=== PATIENT | female | born 1945 | race Caucasian/White ===

== ENCOUNTER → 2016-11-13 | Outpatient (CLI) | payer OTHER ==
[~2016-11-13] MED LIST: ACET-1256 PO; AMIT10TA6 PO; ASCO500T16 PO; ASPI81TA28 PO; CALC-5 PO; CTP/1 PO; HYDR25TA4 PO; MECL1TAB42 PO; MULT-513 PO; NUTR-218 PO; OMEP20CA59 PO; ONDA4TAB7 SL; OXYC1TAB3 PO; POTA-327 PO; POTA1080 PO; PRAV20TA PO
--- NOTE | 2016-11-13 08:26 | DIAGNOSTIC IMAGING REPORT ---
RENAL ULTRASOUND CLINICAL HISTORY: Nephrolithiasis. COMPARISON STUDY: CT of the abdomen and pelvis April 07, 2014 and IVP December 02, 2014. TECHNIQUE: Sonography of the kidneys and the urinary bladder was performed. FINDINGS: There is no hydronephrosis. The right kidney measures 11.2 x 5.7 x 6 cm and the left measures 10.5 x 6.3 x 7.3 cm. There is mild renal cortical thinning. Incidental note is made of a septated 3.8 cm right hepatic lobe cyst which is unchanged since CT of April 07, 2014. Both ureteral jets were identified. No calculi are identified by sonography. IMPRESSION: 1. No hydronephrosis. 2. No calculi identified by sonography. Electronically signed by: Jorge Calderon M.D. 11/13/2016 8:24 AM Dictated Date/Time: 11/13/2016 8:22 AM
== END | disposition home or self-care (01) ==
LOC: C.ULTR 07:26
PROVIDERS: ATTEND Urology
DX: N20.0 Calculus of kidney (principal)

== ENCOUNTER 2017-05-02 02:01 | Emergency (ER) | payer OTHER ==
[2017-05-02] MEDS ORDERED: OPTIRAY 320 IV PRN (03:45)
[2017-05-02 05:42] VITALS: PULSE 60; O2SAT 100
[2017-05-02 05:44] VITALS: BP 183/112
[2017-05-02] MEDS ORDERED: CLONIDINE HCL 0.1 MG TAB PO ONE (05:45)
[2017-05-02 05:56] VITALS: TEMP 36.5
--- NOTE | 2017-05-02 06:18 | EMERGENCY ROOM VISIT NOTE ---
ED Visit Note First contact with patient: 03:38 This patient was seen and evaluated at the request of my attending physician, Dr. Lindquist, for slit lamp examination of the right eye. Please see Dr. Lindquist's dictation for full history of present illness and emergency Department course. GENERAL: This is a pleasant white female, in no acute distress, but who is uncomfortable from the eye problem. RIGHT EYE. There is no significant discharge of tears from the right eye which is not injected. There is no foreign body visible under the eyelid even after lid eversion. No foreign body was seen embedded in the cornea under slit lamp exam. The cornea was clear and no hyphema was seen. Fluorescein uptake was not observed with ultraviolet light. I will refer you back to Dr. Lindquist's dictation for full ER course. Problem List Medical Problems: (1) Benign hypertension Status: Chronic (2) Cholecystectomy Status: Resolved (3) Hyperlipidemia Status: Chronic (4) Hypertension Status: Chronic (5) Hysterectomy Status: Resolved (6) Irritable Bowel Syndrome Status: Chronic (7) Kidney stones Status: Resolved Current/Historical Medications Scheduled Acetaminophen (Tylenol), 1,000 MG PO Q6HR PRN Amitriptyline Hcl (Elavil), 10 MG PO HS Aspirin (Aspirin Ec), 81 MG PO DAILY Calcium-Magnesium W/ Vitamin D (Calcium 500), 500 MG PO DAILY Clonidine Hcl (Catapres), 0.2 MG PO DAILY Hydrochlorothiazide (Hctz), 25 MG PO DAILY Meclizine Hcl (Meclizine Hcl), 25 MG PO TID PRN Multivitamins/Minerals (Mvi With Minerals), 1 TAB PO DAILY Nutritional Supplements (Juice Plus Fibre), 1 DOSE PO BID Omeprazole (Prilosec), 20 MG PO DAILY Potassium Citrate (Urocit-K), 15 MEQ PO DAILY Potassium Ext Rel (Klor-Con), 10 MEQ PO DAILY Pravastatin (Pravachol ), 20 MG PO HS Scheduled PRN Ascorbic Acid (Ascorbic Acid), 500 MG PO BID PRN for unkn Ondansetron (Zofran Odt), 1-2 TABS SL Q6H PRN for Nausea Oxycodone Ir (Roxicodone Ir), 1-2 TAB PO Q4H PRN for Severe Pain Allergies Coded Allergies: Diclofenac (Verified Allergy, Unknown, elevated liver enzymes, 04/07/14) NSAIDs (Verified Allergy, Unknown, LIVER INJURY, 04/07/14) Vital Signs Date Time Temp Pulse Resp B/P (MAP) Pulse Ox O2 Delivery O2 Flow Rate FiO2 05/02/17 05:56 36.5 05/02/17 05:44 183/112 05/02/17 05:42 60 18 188/106 100 Room Air 05/02/17 04:18 82 18 138/72 96 Medications Administered Medications (Trade) Dose Ordered Sig/Kapil Route Start Time Stop Time Status Last Admin Dose Admin Clonidine HCl (Catapres Tab) 0.1 mg NOW ONCE PO 05/02/17 05:45 05/02/17 05:47 DC 05/02/17 05:52 0.1 MG Departure Information Impression Primary Impression: Flashing lights seen Additional Impression: Visual floaters Dispostion Home / Self-Care Condition GOOD Referrals Dona Kelly M.D. Forms WORK / SCHOOL INSTRUCTIONS, HOME CARE DOCUMENTATION FORM, IMPORTANT VISIT INFORMATION Patient Instructions My [facility] Additional Instructions Diagnosis: Visual floaters, lights Follow up with Dr Forman today, call first thing this morning for an appt today. Dr Galicia was notified. Return to the ED for worsening of symptoms or any medical concerns. Problem Qualifiers
--- NOTE | 2017-05-02 06:27 | EMERGENCY ROOM VISIT NOTE ---
History Report prepared by [place]: Irving Rice Under the Supervision of: Dr. Taylor Lindquist M.D. First contact with patient: 03:38 Chief Complaint: EYE ASSESSMENT Stated Complaint: BLACK SPOT IN EYE AND FLASHING AT RT SIDE OF RT EY History of Present Illness The patient is a 71 year old female who presents to the Emergency Room with complaints of intermittent flashes of white light in the right eye beginning 3 hours ago. 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 She reports she came home to make supper, and she thought there was a bug around her. The patient notes she tried looking around, and the spot was still there. She states her grandchild could not see anything with a flashlight when he looked in her eye except for a red line. The patient reports she has a history of a broken blood vessel in her eye. She notes she tried artificial tears, but they did not help. The patient states she was lying down talking to her friend, and after her conversation she stood up. She reports she started seeing intermittent flashes of white light in her right eye. The patient notes it looks like a sparkler streak. She states she looked around, and the flashes were still there. The patient reports she thought she may have detached her retina. She notes she called the tele-nurse and was told to come to the ED. The patient states she wanted to wait and call her wool shearer later today. She reports she woke up the other day with a crusty right eye, but she attributed it to her sorethroat. The patient denies bumping her head, head pain, starting new medication, weakness, and speech loss. Source of History: patient Onset: 3 hours ago Position: eye (right) Quality: other (white light) Timing: intermittent Note: Associated symptoms: black spec in right eye Denies: bumping her head, head pain, starting new medication, weakness, and speech loss Review of Systems See HPI for pertinent positives & negatives. A total of 10 systems reviewed and were otherwise negative. Past Medical & Surgical Medical Problems: (1) Benign hypertension (2) Cholecystectomy (3) Hyperlipidemia (4) Hypertension (5) Hysterectomy (6) Irritable Bowel Syndrome (7) Kidney stones Family History Cancer Diabetes mellitus Gallbladder disease Hypertension Kidney stones Other cardiovascular diseases Other kidney diseases Social History Smoking Status: Never Smoker Alcohol Use: none Marital Status: Housing Status: lives with significant other Occupation Status: retired Current/Historical Medications Scheduled Acetaminophen (Tylenol), 1,000 MG PO Q6HR PRN Amitriptyline Hcl (Elavil), 10 MG PO HS Aspirin (Aspirin Ec), 81 MG PO DAILY Calcium-Magnesium W/ Vitamin D (Calcium 500), 500 MG PO DAILY Clonidine Hcl (Catapres), 0.2 MG PO DAILY Hydrochlorothiazide (Hctz), 25 MG PO DAILY Meclizine Hcl (Meclizine Hcl), 25 MG PO TID PRN Multivitamins/Minerals (Mvi With Minerals), 1 TAB PO DAILY Nutritional Supplements (Juice Plus Fibre), 1 DOSE PO BID Omeprazole (Prilosec), 20 MG PO DAILY Potassium Citrate (Urocit-K), 15 MEQ PO DAILY Potassium Ext Rel (Klor-Con), 10 MEQ PO DAILY Pravastatin (Pravachol ), 20 MG PO HS Scheduled PRN Ascorbic Acid (Ascorbic Acid), 500 MG PO BID PRN for unkn Ondansetron (Zofran Odt), 1-2 TABS SL Q6H PRN for Nausea Oxycodone Ir (Roxicodone Ir), 1-2 TAB PO Q4H PRN for Severe Pain Allergies Coded Allergies: Diclofenac (Verified Allergy, Unknown, elevated liver enzymes, 04/07/14) NSAIDs (Verified Allergy, Unknown, LIVER INJURY, 04/07/14) Physical Exam Vital Signs Date Time Temp Pulse Resp B/P (MAP) Pulse Ox O2 Delivery O2 Flow Rate FiO2 05/02/17 05:56 36.5 05/02/17 05:44 183/112 05/02/17 05:42 60 18 188/106 100 Room Air 05/02/17 04:18 82 18 138/72 96 Right Eye Acuity: 20/50 Left Eye Acuity: 20/30 Physical Exam Vital signs reviewed. General: Well-appearing 71 year old female, in no significant distress. HEENT: No scleral icterus, PERRLA, neck supple. Atraumatic. Right eye pressures (puff tonometry) are normal at 12, 11, and 12. No foreign bodies identified on fluorescein exam. Normal limited funduscopic exam. Cardiovascular: Regular rate and rhythm, no extra sounds. Pulmonary: Clear to auscultation bilaterally, normal work of breathing. Abdomen: Soft, nontender, nondistended, positive bowel sounds. Musculoskeletal: Atraumatic, no peripheral edema. Neurologic: Patient awake alert and oriented x 3, full strength in all 4 extremities. Cranial nerves 2 through 12 grossly intact. Skin: Warm, dry, no rash Medical Decision & Procedures ER Provider Diagnostic Interpretation: CT results as stated below per my review and radiologist interpretation: CT HEAD: No evidence of acute intracranial abnormality. Specifically, no evidence of acute territorial infarct, acute intracranial hemorrhage, mass effect of midline shift. Mild senescent change of the brain, appropriate for age. Visualized portions of the orbits appear unremarkable on CT. CTA HEAD: Patent intracranial arteries. No evidence of hemodynamically significant stenosis, occlusion, aneurysm, or vascular malformation. Intracranial venous structures appear patent. Radiologist: Kaley Hughes MD Study ready at 0347 and initial results transmitted at 0503. Medications Administered Medications (Trade) Dose Ordered Sig/Kapil Route Start Time Stop Time Status Last Admin Dose Admin Clonidine HCl (Catapres Tab) 0.1 mg NOW ONCE PO 05/02/17 05:45 05/02/17 05:47 DC 05/02/17 05:52 0.1 MG ECG Indication: other (hypertension) Rate (beats per minute): 72 Rhythm: normal sinus Findings: no acute ischemic change, no ectopy ED Course 0219: Past medical records reviewed. The patient was evaluated in room B02. A complete history and physical examination was performed. 0514: I discussed the patient's case with Dr. Galicia, Ophthalmology. The patient will be seen in the office later today. 0516: I reevaluated the patient and discussed my consult with Dr. Galicia. I updated the patient of her current exam findings. 0541: The patient was found to be hypertensive. She states she took Clonidine last evening and believes it is wearing off. She will be given 0.1mg of Clonidine. She verbalized agreement of the treatment plan and discharge instructions. The patient will be discharged when she receives her medication. 0545: Ordered Clonidine HCl 0.1mg PO Medical Decision The patient is a 71 year old female who presents to the ED with complaints of flashes in her right eye. Differentials include retinal detachment, vitreous hemorrhage, CVA, glaucoma, hypertension urgency, central retinal vein occlusion , central retinal artery occlusion. This patient was evaluated and appeared to be in no significant distress. Physical examination is fairly unrevealing. Funduscopic exam is limited but appears to be normal. Slit-lamp exam was performed by Taj López PA-C. There is no evidence of corneal abrasion. Pelvic tonometer reveals normal intraocular pressures. Visual acuity is intact. Patient developed hypertension in her stay here in the ER. She advised me that she takes 0.2 mg of clonidine before going to bed. I suspect this has worn off and she is having a rebound effect. The patient was given 0.1 mg of oral clonidine in the emergency department. EKG is a sinus rhythm without evidence of ischemia or ectopy. I did speak with Dr. Galicia of ophthalmology who states the patient can be seen in their office later today. I did advise the patient to see her primary care physician this week for what pressure recheck and medication management. She will check her blood pressures in the mid morning and use clonidine 0.1 mg if her systolic pressures greater than 180. She will seek further advice from her PCP. Patient was discharged to the care of her friend and will return to the ER for worsening of symptoms or any medical concerns. Medication Reconcilliation Current Medication List: was personally reviewed by me Blood Pressure Screening Patient's blood pressure: Elevated blood pressure Blood pressure disposition: Referred to PCP Consults Time Called: 0507 Consulting Physician: Dr. Galicia, Ophthalmology Returned Call: 0514 I discussed the patient's case with Dr. Galicia, Ophthalmology. The patient will be seen in the office later today. Impression Primary Impression: Flashing lights seen Additional Impressions: Visual floaters Hypertension Scribe Attestation The scribe's documentation has been prepared under my direction and personally reviewed by me in its entirety. I confirm that the note above accurately reflects all work, treatment, procedures, and medical decision making performed by me. Departure Information Dispostion Home / Self-Care Referrals Dona Kelly M.D. Forms WORK / SCHOOL INSTRUCTIONS, HOME CARE DOCUMENTATION FORM, IMPORTANT VISIT INFORMATION Patient Instructions My [facility] Additional Instructions Diagnosis: Visual floaters, lights Follow up with Dr Forman today, call first thing this morning for an appt today. Dr Galicia was notified. Return to the ED for worsening of symptoms or any medical concerns. Problem Qualifiers
--- NOTE | 2017-05-02 07:31 | DIAGNOSTIC IMAGING REPORT ---
CT ANGIOGRAPHY HEAD COMBO CT DOSE: CLINICAL HISTORY: Right eye visual loss. Possible stroke. TECHNIQUE: Unenhanced images were obtained to the brain. CT angiography was then performed in a dynamic helical fashion during intravenous administration of 92 cc of Optiray 320. MIP imaging was performed. A dose lowering technique was utilized adhering to the principles of ALARA. COMPARISON STUDY: Noncontrast head CT dated 04/26/2012 FINDINGS: No intra or extra-axial mass lesions are visualized. There is no CT evidence of acute cortical infarction. There is no midline shift. There is no acute hemorrhage. There is no hydrocephalus. Postcontrast images reveal no pathologically enhancing masses. There are no major intracranial branch occlusions. There are no lesion suspicious for aneurysm. There is no evidence of dural venous sinus thrombosis. IMPRESSION: Unremarkable CT angiography of the brain. Electronically signed by: Andrea Turk M.D. 05/02/2017 6:49 AM Dictated Date/Time: 05/02/2017 6:44 AM
[2017-05-02 15:25] LABS: ISTAT CREATININE 0.9 mg/dl (0.6-1.3); ISTAT HEMOGLOBIN 12.6 g/dl (12.0-16.0); ISTAT IONIZED CALCIUM 1.32 mmol/l (1.12-1.32)
== END 2017-05-02 05:56 | disposition home or self-care (01) ==
LOC: C.EDB 02:01
DX: H53.8 Other visual disturbances (principal); I10 Essential (primary) hypertension; Z79.899 Other long term (current) drug therapy; K58.9 Irritable bowel syndrome, unspecified

== ENCOUNTER → 2017-06-25 | Outpatient (CLI) | payer OTHER ==
--- NOTE | 2017-06-28 08:13 | MAMMOGRAPHY REPORT ---
BILATERAL DIGITAL SCREENING MAMMOGRAM TOMOSYNTHESIS WITH CAD: 06/25/2017 CLINICAL HISTORY: Routine screening. Patient has no complaints. TECHNIQUE: Breast tomosynthesis in addition to standard 2D mammography was performed. Current study was also evaluated with a Computer Aided Detection (CAD) system. COMPARISON: Comparison is made to exams dated: 05/29/2016 mammogram, 05/23/2015 mammogram, 4 mammogram, 04/03/2013 mammogram, 03/26/2012 mammogram, and 03/09/2011 mammogram - [facility]. BREAST COMPOSITION: There are scattered areas of fibroglandular density in both breasts. FINDINGS: There are minimal vascular calcifications in both breasts. Stable asymmetry in the centra l left breast. No new suspicious mass, architectural distortion or cluster of microcalcifications is seen. IMPRESSION: ACR BI-RADS CATEGORY 2: BENIGN There is no mammographic evidence of malignancy. A 1 year screening mammogram is recommended. The pa tient will receive written notification of the results. Approximately 10% of breast cancers are not detected with mammography. A negative mammographic report should not delay biopsy if a clinically suggestive mass is present. Nayana Vanessa M.D. ay/:06/25/2017 15:18:25 Folder Operator: Divya FOSTERR, M, [facility] letter sent: Normal 1/2 BI-RADS Code: ACR BI-RADS Category 2: Benign
== END | disposition home or self-care (01) ==
LOC: C.MAMM 14:45
PROVIDERS: ATTEND Student in an Organized Health Care Education/Training Program
DX: Z12.31 Encounter for screening mammogram for malignant neoplasm of breast (principal)

== ENCOUNTER → 2017-09-09 | Outpatient (CLI) | payer OTHER ==
[~2017-09-09] MED LIST changes: +OPTIRAY 320 IV PRN
--- NOTE | 2017-09-09 15:50 | DIAGNOSTIC IMAGING REPORT ---
(CHEST FOR PE) ANGIO WITH CT DOSE: 578.12 mGy.cm HISTORY: 72 years-old Female presents with acute atypical chest pain TECHNIQUE: Multiple CTA images of the chest were obtained after the intravenous administration of 102 ml Optiray 320. Coronal and sagittal MIPS were obtained from the axial data set and were submitted for review. A dose lowering technique was utilized adhering to the principles of ALARA. COMPARISON: Chest radiographs 10/13/2012. FINDINGS: CTA: Heart is normal in size without pericardial effusion. Coronary arterial calcifications are present. Thoracic aorta is normal in both course and caliber without aneurysm or dissection. Imaged great vessels appear to be patent. The pulmonary arterial tree is opacified to level of the segmental branches. The subsegmental branches are not well-seen secondary to contrast bolus timing. Mild respiratory motion is also present which limits evaluation of the segmental branches of the level the lung bases. No focal filling defects identified to suggest pulmonary thromboembolic disease. CT CHEST: Heterogeneous thyroid with multiple nodules. No pathologically enlarged lymph nodes of the chest are identified. No pleural effusion or pneumothorax identified. 5 mm paratracheal lymph node is seen on the right image 141 series 4. Indeterminate 4 mm solid nodule of the lateral segment right middle lobe seen on image 133 series 4. Subsegmental consolidative opacity of the right middle lobe adjacent to the diaphragm suggests atelectasis or scarring. The central airways are patent. Prior cholecystectomy. Multiple low attenuating lesions are seen throughout the liver measuring up to 7.8 cm suggesting hepatic cysts. Partially imaged colonic diverticulosis without diverticulitis. Soft tissues are unremarkable. Bones appear intact. Subcortical cystic changes of the right humeral head. IMPRESSION: 1. No acute intrathoracic abnormality identified, specifically no aortic pathology or evidence of pulmonary thromboembolic disease. 2. Indeterminate 4 mm solid pulmonary nodule of the lateral segment right middle lobe. 3. Prior cholecystectomy. 4. Colonic diverticulosis. Please refer to below summary of Fleischner criteria recommendations for follow-up of incidental CT nodules (Danette Haji, Guidelines for management of small pulmonary nodules detected on CT scans: A statement from the Fleischner Society, Radiology 237: [id number].) SOLID NODULES Solitary nodule size: <6 mm * Low risk patients: no follow-up needed * high risk patients: optional CT at 12 months Note: newly detected indeterminate nodule in persons 35 years of age or older. * Low risk patients: minimal or absent history of smoking and/or other known risk factors * high risk patients: history of smoking or of other known risk factors (e.g. first degree relative with lung cancer, or exposure to asbestos, radon, uranium) * if a nodule up to 8 mm is partly solid or is ground glass further follow-up is required after 24 months to exclude possible slow growing adenocarcinoma (NHUNG) The above report was generated using voice recognition software. It may contain grammatical, syntax or spelling errors. Electronically signed by: Lucho Delgado M.D. 09/09/2017 3:48 PM Dictated Date/Time: 09/09/2017 3:42 PM
== END | disposition home or self-care (01) ==
LOC: C.CTS 15:20
PROVIDERS: ATTEND Internal Medicine
DX: R07.9 Chest pain, unspecified (principal); R79.89 Other specified abnormal findings of blood chemistry; R91.1 Solitary pulmonary nodule; Z90.49 Acquired absence of other specified parts of digestive tract; K57.30 Diverticulosis of large intestine without perforation or abscess without bleeding

== ENCOUNTER 2021-04-04 19:09 | Inpatient (IN) ==
[2021-04-04 19:44] LABS: Basophils # (auto) 0.02 K/uL (0-0.2); Basophils % (auto) 0.2 %; Eosinophils # (auto) 0.18 K/uL (0-0.5); Eosinophils % (auto) 2.2 %; Hematocrit (blood only) 42.3 % (37-47); Hemoglobin 14.3 g/dL (12.0-16.0); Immature Granulocytes # (auto) 0.01 K/uL (0.00-0.02); Immature Granulocytes % (auto) 0.1 %; Lymphocytes % (auto) 28.7 %; Mean Corpuscular Hemoglobin 29.9 pg (25-34); Mean Corpuscular Hgb Conc 33.8 g/dL (32-36); Mean Corpuscular Volume 88.3 fL (80-100); Mean Platelet Volume 10.2 fL (7.4-10.4); Neutrophils # (auto) 4.74 K/uL (1.4-6.5); Neutrophils % (auto) 56.8 %; Platelet Count 196 K/uL (130-400); RDW Coefficient of Variation 13.6 % (11.5-14.5); RDW Standard Deviation 43.8 fL (36.4-46.3); Red Blood Count 4.79 M/uL (4.2-5.4); White Blood Count 8.35 K/uL (4.8-10.8)
[2021-04-04] MEDS ORDERED: ASPIRIN CHEW 324 MG PO STA (19:53)
[2021-04-04] MEDS ORDERED: METOPROLOL TARTRATE 1 MG/ML VIAL IV STA (19:53)
[2021-04-04 19:55] LABS: Partial Thromboplastin Time 25.1 Seconds (21.0-31.0)
--- NOTE | 2021-04-04 19:56 | Emergency Department Note ---
Impression & Plan Atrial fibrillation with rapid ventricular response, Precordial chest pain, Exertional chest pain, Hypertension ED Provider Note NAME: JACKIE RAY AGE: 75 SEX: F : 1945 ARRIVES VIA: Walk-In INFORMANT: [Patient][family] ED PROVIDER(S): [Quang Patel MD] CHIEF COMPLAINT: Chest pain HISTORY OF PRESENT ILLNESS: The patient is a 75-year-old female who has a history of palpitations. Patient states that 2 weeks ago, her blood pressure medication, her Coreg, was decreased because her heart rate was low. Her blood pressure though increased after this change and yesterday, she restarted her back on her full strength of Coreg, 6.25 mg. The patient states that for a few days now, she has noticed that her heart has been at times racing. She has noticed a little shortness of breath and has had some discomfort in the chest, the neck and shoulders. Pain rated as a 6 or 7 on a scale 1-10. Her symptoms do worsen with exertion and seem better at rest. Today, she had symptoms all day, for over 12 hours. Patient states that she had a stress test years ago and did fine on it. She has no history of A. fib or a flutter. She does take a baby aspirin daily. There has been no cough or cold or congestion. She has noticed some swelling of her legs lately but she attributes this to walking more at the [employer] fair. REVIEW OF SYSTEMS: See HPI for pertinent positives and negatives. A total of ten systems were reviewed and were otherwise negative. PMHx/PSHx: See Below SOCIAL HISTORY: See Below. PHYSICAL EXAM: GENERAL: Patient is in no acute distress. HEENT: No acute trauma, normocephalic atraumatic, mucous membranes moist, no nasal congestion, no scleral icterus. NECK: No stridor, no adenopathy, no meningismus, trachea is midline. LUNGS: Clear to auscultation bilaterally, no wheeze, no rhonchi, breath sounds equal. HEART: Slightly tachycardic, rhythm seems slightly irregular. No murmurs. ABDOMEN: Soft, nontender, bowel sounds positive, no hernias, no peritonitis. EXTREMITIES: No cyanosis, moderate bilateral pedal edema, full range of motion of all the joints without pain or difficulty, no signs for acute trauma. NEUROLOGIC: Oriented x 3, no acute motor or sensory deficits, no focal weakness. SKIN: No rash, no jaundice, no diaphoresis. DIFFERENTIAL DIAGNOSIS: Cardiac ischemia, aortic dissection, pulmonary embolism, pneumothorax, pneumonia, pericarditis, SVT, A. fib or a flutter, V. tach, myocarditis, esophageal rupture, GERD, cholecystitis, pancreatitis, musculoskeletal, as well as other pathologies. EMERGENCY DEPARTMENT COURSE/PROCEDURES: ECG: Indication was chest pain. The ECG shows atrial fibrillation with a rate of 133. There is some nonspecific ST change diffusely. No ST elevation. No PVCs. The QTc is 416. Repeat EKG: Indication was tachycardia and A. fib. The ECG shows a sinus bradycardia with some sinus arrhythmia. The rate is 56. There is LVH present. There is no ST elevation, no PVCs. The QTc is 441. Compared to an ECG from earlier today, the A. fib has resolved. Continuous Cardiac Monitoring: An order was placed for continuous cardiac monitoring. The monitor shows a rate of 134 with atrial fibrillation. Critical Care Note: I have personally spent 47 minutes of critical care time in the direct management of this patient. This includes bedside care, interpretation of diagnostic studies, and testing, discussion with consultants, patient, and family members, and other required patient management activities. This 47 minutes is in excess of all separately billable procedures. MEDICAL DECISION MAKING: There is no leukocytosis or concerning anemia. There is a normal platelet count. No coagulopathy. No kidney failure or significant electrolyte abnormality. No concerning liver enzyme elevation. The patient appears to be in a euthyroid state. Covid test returned negative. ECG shows atrial fibrillation, no acute ischemic change. Cardiac enzyme testing x1 is not consistent with acute cardiac injury. Chest x-ray does not show mediastinal widening, pneumonia or pneumothorax. Patient was given oral aspirin. She received IV Lopressor. The Lopressor was given to control her blood pressure and heart rate. The patient was thought to be back in a normal sinus rhythm based on the bus driver/monitor. She converted to a sinus rhythm before the Lopressor was given. A repeat EKG confirmed a normal sinus rhythm with LVH, no acute ischemic change. The patient is feeling markedly improved. I am concerned about underlying coronary disease given the description of her discomfort. She has had exertional symptoms, she feels worse when her heart is beating quickly. Further work-up and care is required here in the hospital. I spoke with the patient and case management. The on-call hospitalist was cons ulted. Past Med/Surg History Medical History (Updated 04/04/21 @ 23:26 by Quang Patel MD) Anemia HX Anxiety Depression Hyperlipidemia Hypertension Irritable bowel syndrome Kidney stones Migraine HX OF Osteoarthritis Surgical History History of cataract surgery LEFT History of cholecystectomy History of colonoscopy History of esophagogastroduodenoscopy (EGD) History of hysterectomy History of lithotripsy History of tooth extraction History of total knee replacement RT/LEFT Family History Mother Family history of diabetes mellitus Social History Smoking Status: Never smoker Second Hand Exposure: No; Hx Alcohol Use: No Hx Substance Use: No Preferred Language: Kiswahili Communication Ability: Effective 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 Operator 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: No Beliefs That Will Affect Care: None Current Living Situation: Spouse Feels Safe at Home: Yes Assistive Devices: Denture - Upper and Glasses Allergies Allergies Allergy/AdvReac Type Severity Reaction Status Date / Time capsaicin Allergy Intermediate elevated Verified 04/04/21 21:00 liver enzymes diclofenac Allergy Intermediate elevated Verified 04/04/21 21:00 liver enzymes NSAIDS (Non-Steroidal Allergy Intermediate ELEVATED Verified 04/04/21 21:00 Anti-Inflamma LIVER ENZYMES IN THE PAST Home Meds Home Medications Medication Instructions Recorded Confirmed amitriptyline 10 mg tablet 10 mg PO HS 11/29/18 04/04/21 carvedilol 6.25 mg tablet 6.25 mg PO BID 11/29/18 04/04/21 clonidine HCl 0.1 mg tablet 0.2 mg PO HS 11/29/18 04/04/21 hydrochlorothiazide 25 mg tablet 25 mg PO QAM 11/29/18 04/04/21 pravastatin 20 mg tablet 20 mg PO HS 11/29/18 04/04/21 Juice Plus 2 cap PO BID 02/10/19 04/04/21 aspirin 81 mg tablet,delayed 81 mg PO HS 02/10/19 04/04/21 release potassium chloride 10 mEq 10 meq PO QAM 02/10/19 04/04/21 tablet,extended release acetaminophen 500 mg tablet 1,000 mg PO Q6H PRN 04/04/21 04/04/21 ascorbic acid (vitamin C) 500 mg 500 mg PO BID 04/04/21 04/04/21 tablet (Vitamin C) calcium carbonate 500 mg calcium 500 mg PO DAILY 04/04/21 04/04/21 (1,250 mg) tablet (Calcium 500) famotidine 40 mg tablet 40 mg PO DAILY 04/04/21 04/04/21 multivitamin with minerals 1 tab PO DAILY 04/04/21 04/04/21 polyethylene glycol 3350 17 17 g PO DAILY PRN 04/04/21 04/04/21 gram/dose oral powder (Miralax) Results & Data (ED) Vital Signs Vital Signs - 24 hr 04/04/21 19:16 04/04/21 20:06 04/04/21 20:10 Temperature 36.6 C Temperature Source Temporal Artery Scan Pulse Rate 134 H 78 89 Pulse Rate [Apical] Pulse Rate from SpO2 Sensor Respiratory Rate 18 21 Respiratory Effort / Characteristics Non-Labored Respiratory Depth Normal Blood Pressure 180/101 H 164/113 H 164/113 H Blood Pressure [Right Arm] Blood Pressure Mean 127 130 Blood Pressure Mean [Right Arm] Pulse Oximetry 97 Oxygen Delivery Method Room Air Sepsis Recent Fever Within 48 Hours No Sepsis New/Unexplained Change in Mental Status No Sepsis Action Taken by Nursing No Action Required 04/04/21 20:13 04/04/21 20:30 04/04/21 20:45 Temperature Temperature Source Pulse Rate 74 61 61 Pulse Rate [Apical] 76 Pulse Rate from SpO2 Sensor 57 L Respiratory Rate 20 21 22 Respiratory Effort / Characteristics Respiratory Depth Blood Pressure 183/100 H 178/110 H 176/96 H Blood Pressure [Right Arm] 183/100 H Blood Pressure Mean 127 132 122 Blood Pressure Mean [Right Arm] 127 Pulse Oximetry 95 97 Oxygen Delivery Method Room Air Sepsis Recent Fever Within 48 Hours Sepsis New/Unexplained Change in Mental Status Sepsis Action Taken by Nursing 04/04/21 21:00 04/04/21 21:15 04/04/21 21:30 Temperature Temperature Source Pulse Rate 68 62 56 L Pulse Rate [Apical] Pulse Rate from SpO2 Sensor 55 L Respiratory Rate 25 H 23 19 Respiratory Effort / Characteristics Respiratory Depth Blood Pressure 173/96 H 160/92 H 178/76 H Blood Pressure [Right Arm] Blood Pressure Mean 121 114 110 Blood Pressure Mean [Right Arm] Pulse Oximetry 97 Oxygen Delivery Method Sepsis Recent Fever Within 48 Hours Sepsis New/Unexplained Change in Mental Status Sepsis Action Taken by Nursing 04/04/21 21:46 04/04/21 21:58 04/04/21 23:11 Temperature Temperature Source Pulse Rate 63 Pulse Rate [Apical] 58 L 71 Pulse Rate from SpO2 Sensor 61 Respiratory Rate 19 20 20 Respiratory Effort / Characteristics Respiratory Depth Blood Pressure 188/89 H Blood Pressure [Right Arm] 188/89 H 175/97 H Blood Pressure Mean 122 Blood Pressure Mean [Right Arm] 122 123 Pulse Oximetry 96 98 97 Oxygen Delivery Method Room Air Room Air Sepsis Recent Fever Within 48 Hours Sepsis New/Unexplained Change in Mental Status Sepsis Action Taken by Jail Medications Current Medication List: was personally reviewed by me Laboratory Data Attestation: I reviewed the patient's lab results. Result diagrams: 04/04/21 19:32 04/04/21 19:32 Lab Results 04/04/21 04/04/21 04/04/21 Range/Units 19:32 19:32 19:32 WBC 8.35 (4.8-10.8) K/uL RBC 4.79 (4.2-5.4) M/uL Hgb 14.3 (12.0-16.0) g/dL Hct 42.3 (37-47) % MCV 88.3 (80-100) fL MCH 29.9 (25-34) pg MCHC 33.8 (32-36) g/dL RDW Std Deviation 43.8 (36.4-46.3) fL RDW Coeff of Leo 13.6 (11.5-14.5) % Plt Count 196 (130-400) K/uL MPV 10.2 (7.4-10.4) fL Immature Gran % (Auto) 0.1 % Neut % (Auto) 56.8 % Lymph % (Auto) 28.7 % Baker % (Auto) 12.0 % Eos % (Auto) 2.2 % Baso % (Auto) 0.2 % Neut # (Auto) 4.74 (1.4-6.5) K/uL Lymph # (Auto) 2.40 (1.2-3.4) K/uL Baker # (Auto) 1.00 H (0.11-0.59) K/uL Eos # (Auto) 0.18 (0-0.5) K/uL Baso # (Auto) 0.02 (0-0.2) K/uL Immature Gran # (Auto) 0.01 (0.00-0.02) K/uL PT 10.0 (9.0-12.0) Seconds INR 1.0 (0.9-1.1) APTT 25.1 (21.0-31.0) Seconds PTT Ratio 1.0 Sodium 143 (136-145) mmol/L Potassium 3.5 (3.5-5.1) mmol/L Chloride 110 H (98-107) mmol/L Carbon Dioxide 27 (21-32) mmol/L Anion Gap 6.0 (3-11) BUN 14 (7-18) mg/dl Creatinine 0.72 (0.6-1.2) mg/dl Est Cr Clr Drug Dosing 72.7 ml/min Est GFR ( Amer) 95.6 ml/min Est GFR (Non-Af Amer) 82.5 ml/min BUN/Creatinine Ratio 18.8 (10-20) Glucose 101 H (70-99) mg/dl Calcium 9.6 (8.5-10.1) mg/dl Magnesium 2.3 (1.8-2.4) mg/dl Total Bilirubin 0.4 (0.2-1) mg/dl AST 23 (15-37) U/L ALT 24 (12-78) U/L Alkaline Phosphatase 68 (45-117) U/L Troponin I < 0.015 (0-0.045) ng/ml Total Protein 7.6 (6.4-8.2) gm/dl Albumin 3.7 (3.4-5.0) gm/dl Globulin 3.9 (2.5-4.0) gm/dl Albumin/Globulin Ratio 0.9 (0.9-2) TSH 2.450 (0.300-4.500) uIu/ml COVID-19 Eval Order SARS-CoV-2 (PCR) (Negative) 04/04/21 04/04/21 Range/Units 20:02 20:02 WBC (4.8-10.8) K/uL RBC (4.2-5.4) M/uL Hgb (12.0-16.0) g/dL Hct (37-47) % MCV (80-100) fL MCH (25-34) pg MCHC (32-36) g/dL RDW Std Deviation (36.4-46.3) fL RDW Coeff of Leo (11.5-14.5) % Plt Count (130-400) K/uL MPV (7.4-10.4) fL Immature Gran % (Auto) % Neut % (Auto) % Lymph % (Auto) % Baker % (Auto) % Eos % (Auto) % Baso % (Auto) % Neut # (Auto) (1.4-6.5) K/uL Lymph # (Auto) (1.2-3.4) K/uL Baker # (Auto) (0.11-0.59) K/uL Eos # (Auto) (0-0.5) K/uL Baso # (Auto) (0-0.2) K/uL Immature Gran # (Auto) (0.00-0.02) K/uL PT (9.0-12.0) Seconds INR (0.9-1.1) APTT (21.0-31.0) Seconds PTT Ratio Sodium (136-145) mmol/L Potassium (3.5-5.1) mmol/L Chloride (98-107) mmol/L Carbon Dioxide (21-32) mmol/L Anion Gap (3-11) BUN (7-18) mg/dl Creatinine (0.6-1.2) mg/dl Est Cr Clr Drug Dosing ml/min Est GFR ( Amer) ml/min Est GFR (Non-Af Amer) ml/min BUN/Creatinine Ratio (10-20) Glucose (70-99) mg/dl Calcium (8.5-10.1) mg/dl Magnesium (1.8-2.4) mg/dl Total Bilirubin (0.2-1) mg/dl AST (15-37) U/L ALT (12-78) U/L Alkaline Phosphatase (45-117) U/L Troponin I (0-0.045) ng/ml Total Protein (6.4-8.2) gm/dl Albumin (3.4-5.0) gm/dl Globulin (2.5-4.0) gm/dl Albumin/Globulin Ratio (0.9-2) TSH (0.300-4.500) uIu/ml COVID-19 Eval Order Covid19 at [facility] SARS-CoV-2 (PCR) NEGATIVE (Negative) Administered Medications Discontinued Medications Aspirin (Aspirin Chew 324 Mg) 324 mg PO NOW STA Stop: 04/04/21 19:54 Last Admin: 04/04/21 20:16 Dose: 324 mg Documented by: [id number] Carvedilol (Carvedilol 6.25 Mg Tab) 6.25 mg PO NOW STA Stop: 04/04/21 21:17 Last Admin: 04/04/21 21:41 Dose: 6.25 mg Documented by: [id number] Ioversol (Optiray 320 125ml) 125 ml IV ONCE ONE Stop: 04/04/21 22:57 Last Admin: 04/04/21 22:56 Dose: 118 ml Documented by: [id number] Metoprolol Tartrate (Metoprolol Tartrate 1 Mg/Ml Vial) 5 mg IV NOW STA Stop: 04/04/21 19:54 Last Admin: 04/04/21 20:10 Dose: 5 mg Documented by: [id number] Potassium Chloride (Potassium Chloride Crtab 20 Meq Tabcr) 40 meq PO NOW STA Stop: 04/04/21 21:17 Last Admin: 04/04/21 21:42 Dose: 40 meq Documented by: [id number] Imaging Data Radiologist's Impression: Chest X-Ray 04/04/21 19:30 SINGLE VIEW CHEST CLINICAL HISTORY: Atypical chest pain. FINDINGS: An AP, portable, upright chest radiograph is compared to study dated 10/13/2012. The heart is enlarged noting atherosclerotic calcification of the thoracic aorta. The pulmonary vasculature is noncongested. There is bibasilar scarring/atelectasis. No airspace consolidation or large pleural effusion is identified. No pneumothorax is seen. The skeletal structures are osteopenic. The bony thorax is grossly intact. IMPRESSION: Cardiomegaly with no active disease in the chest. ACT 112: Negative or not required by law. Electronically signed by: Quang Meza M.D. 04/04/2021 8:38 PM Discharge Plan Visit Data Chief Complaint: Cardiac Assessment Stated Complaint: NECK, AND SHOULDER PAIN, NAUSEA ED Provider: Quang Patel Discharge Problem: Atrial fibrillation with rapid ventricular response, Precordial chest pain, Exertional chest pain, Hypertension Patient Disposition: Admitted As Inpatient Condition: Fair Forms Stand Alone Forms: [facility] Prescriptions Prescriptions: No Action potassium chloride 10 mEq Tablet Extended Release 10 meq PO QAM RF: 0 Juice Plus 2 cap PO BID RF: 0 aspirin 81 mg Tablet,Delayed Release (Dr/Ec) 81 mg PO HS RF: 0 clonidine HCl 0.1 mg Tablet 0.2 mg PO HS RF: 0 carvedilol 6.25 mg tablet 6.25 mg PO BID RF: 0 amitriptyline 10 mg Tablet 10 mg PO HS RF: 0 pravastatin 20 mg Tablet 20 mg PO HS RF: 0 hydrochlorothiazide 25 mg Tablet 25 mg PO QAM RF: 0 famotidine 40 mg Tablet 40 mg PO DAILY RF: 0 acetaminophen [Tylenol Ex Str Arthritis Pain] 500 mg Tablet 1,000 mg PO Q6H PRN (Reason: Pain) RF: 0 calcium carbonate [Calcium 500] 500 mg calcium (1,250 mg) Tablet 500 mg PO DAILY RF: 0 ascorbic acid (vitamin C) [Vitamin C] 500 mg Tablet 500 mg PO BID RF: 0 multivitamin with minerals Tablet 1 tab PO DAILY RF: 0 polyethylene glycol 3350 [Miralax] 17 gram/dose Powder 17 g PO DAILY PRN (Reason: Constipation) RF: 0 Referrals Referrals: Casie Finn DO [Primary Care Provider] -
[2021-04-04 19:59] LABS: Albumin Level 3.7 gm/dl (3.4-5.0); Blood Urea Nitrogen 14 mg/dl (7-18); Calcium 9.6 mg/dl (8.5-10.1); Carbon Dioxide 27 mmol/L (21-32); Chloride 110 mmol/L (98-107); Glucose 101 mg/dl (70-99); Potassium 3.5 mmol/L (3.5-5.1); Sodium 143 mmol/L (136-145)
[2021-04-04 20:01] LABS: Alanine Aminotransferase 24 U/L (12-78); Aspartate Aminotransferase 23 U/L (15-37); BUN Creatinine Ratio 18.8 (10-20); Creatinine Clr Calc Pharmacy 72.7 ml/min; Est GFR (African American) 95.6 ml/min; Est GFR (Non-African American) 82.5 ml/min
[2021-04-04 20:15] LABS: Bilirubin,Total 0.4 mg/dl (0.2-1); Total Protein 7.6 gm/dl (6.4-8.2)
[2021-04-04 20:16] LABS: Albumin Globulin Ratio 0.9 (0.9-2); Alkaline Phosphatase 68 U/L (45-117); Globulin 3.9 gm/dl (2.5-4.0); Magnesium 2.3 mg/dl (1.8-2.4); Troponin I < 0.015 ng/ml (0-0.045)
--- NOTE | 2021-04-04 20:40 | XRay Report ---
SINGLE VIEW CHEST CLINICAL HISTORY: Atypical chest pain. FINDINGS: An AP, portable, upright chest radiograph is compared to study dated 10/13/2012. The heart i s enlarged noting atherosclerotic calcification of the thoracic aorta. The pulmonary vasculature is n oncongested. There is bibasilar scarring/atelectasis. No airspace consolidation or large pleural effu fidel is identified. No pneumothorax is seen. The skeletal structures are osteopenic. The bony thorax is grossly intact. IMPRESSION: Cardiomegaly with no active disease in the chest. ACT 112: Negative or not required by law. Electronically signed by: Quang Meza M.D. 04/04/2021 8:38 PM
[2021-04-04] MEDS ORDERED: carvediloL 6.25 MG TAB PO STA (21:16)
[2021-04-04] MEDS ORDERED: POTASSIUM CHLORIDE CRTAB 20 MEQ TABCR PO STA (21:16)
[2021-04-04] MEDS ORDERED: OPTIRAY 320 125ml IV ONE (22:56)
[2021-04-05] MEDS ORDERED: ONDANSETRON INJ 2 MG/ML 2 ML VIAL IV STA (00:20)
[2021-04-05] MEDS ORDERED: HEPARIN 25000 UNIT/500 ML D5W IV ONE (00:54)
[2021-04-05] MEDS ORDERED: POTASSIUM CHLORIDE 10 MEQ TABCR PO STA (00:56)
--- NOTE | 2021-04-05 00:56 | History & Physical Report ---
Date of Service April 05, 2021 Assessment & Plan (1) Atrial fibrillation with rapid ventricular response: Plan: New onset AF currently NSR Suboptimal BP control Anxiety contributory hyperlipidemia on statin Rx PVD as per records OBS PCU Continue current Coreg and clonidine Rx Initiate lisinopril if with persistent BP elevation if increase in Coreg and clonidine dosing limited by bradycardia TTE, Cardiology consult (Dr. Finn as per patient's request) Re: PAF Anxiolytic as needed DVT prophylaxis per Lovenox subcu Full code Text document was generated using [employer] voice recognition software. It may contain grammatical or spelling errors. Kindly contact undersigned for clarification of any documentation item in question. Patient requests for her daughter to be updated of plan of care. Ms. Torrie Rodriguez, contact #[phone]. Text document was generated using [employer] voice recognition software. It may contain grammatical or spelling errors. Kindly contact undersigned for clarification of any documentation item in question. History of Present Illness Chief Complaint: Palpitations Primary Care Provider: Casie Finn DO History obtained from patient and records. Medical history significant for hypertension, hyperlipidemia, PVD as per records, IBS. Last confinement 2012 for kidney stone status post stent placement. Patient has had intermittent chest tightness episodes (1-2 episodes weekly) for about 3 years now. Outpatient stress test from 2018 was negative for inducible ischemia. 2 weeks ago, patient noted palpitations, BP fluctuations at home. Home Coreg dose adjusted on 2 occasions as per patient. The last few days, patient noted more frequent palpitations along with chest tightness going to both shoulder blades, achy headache and abdominal pain with diarrhea. No known recent sick contacts although patient admits to attending the [facility]. Always anxious as per patient. Patient noted to be in rapid A. fib, cardiac rate 130s upon arrival at the ER. No prior episodes as per patient. Patient given aspirin and Lopressor. Subsequent NSR conversion. Patient currently more comfortable. 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 Allergies Allergy/AdvReac Type Severity Reaction Status Date / Time capsaicin Allergy Intermediate elevated Verified 04/04/21 21:00 liver enzymes diclofenac Allergy Intermediate elevated Verified 04/04/21 21:00 liver enzymes NSAIDS (Non-Steroidal Allergy Intermediate ELEVATED Verified 04/04/21 21:00 Anti-Inflamma LIVER ENZYMES IN THE PAST Home Medications Medication Instructions Recorded Confirmed Type amitriptyline 10 mg tablet 10 mg PO HS 11/29/18 04/04/21 History carvedilol 6.25 mg tablet 6.25 mg PO BID 11/29/18 04/04/21 History clonidine HCl 0.1 mg tablet 0.2 mg PO HS 11/29/18 04/04/21 History hydrochlorothiazide 25 mg tablet 25 mg PO QAM 11/29/18 04/04/21 History pravastatin 20 mg tablet 20 mg PO HS 11/29/18 04/04/21 History Juice Plus 2 cap PO BID 02/10/19 04/04/21 History aspirin 81 mg tablet,delayed 81 mg PO HS 02/10/19 04/04/21 History release potassium chloride 10 mEq 10 meq PO QAM 02/10/19 04/04/21 History tablet,extended release acetaminophen 500 mg tablet 1,000 mg PO Q6H PRN 04/04/21 04/04/21 History ascorbic acid (vitamin C) 500 mg 500 mg PO BID 04/04/21 04/04/21 History tablet (Vitamin C) calcium carbonate 500 mg calcium 500 mg PO DAILY 04/04/21 04/04/21 History (1,250 mg) tablet (Calcium 500) famotidine 40 mg tablet 40 mg PO DAILY 04/04/21 04/04/21 History multivitamin with minerals 1 tab PO DAILY 04/04/21 04/04/21 History polyethylene glycol 3350 17 17 g PO DAILY PRN 04/04/21 04/04/21 History gram/dose oral powder (Miralax) Past Med/Surg History Medical History (Updated 04/04/21 @ 23:26 by Quang Patel MD) Anemia HX Anxiety Depression Hyperlipidemia Hypertension Irritable bowel syndrome Kidney stones Migraine HX OF Osteoarthritis Surgical History History of cataract surgery LEFT History of cholecystectomy History of colonoscopy History of esophagogastroduodenoscopy (EGD) History of hysterectomy History of lithotripsy History of tooth extraction History of total knee replacement RT/LEFT Family History Mother Family history of diabetes mellitus Social History Smoking Status: Never smoker Second Hand Exposure: No; Hx Alcohol Use: No Hx Substance Use: No Preferred Language: Montenegrin Communication Ability: Effective Offset Plate Maker Required: No Beliefs That Will Affect Care: None Current Living Situation: Spouse Feels Safe at Home: Yes Safety Concerns: Feels Safe At This Time Assistive Devices: None Review of Systems Review of Systems: As per HPI, all 10 systems reviewed, all other ROS negative Physical Exam Physical Exam: GENERAL: Comfortable, slightly anxious, pleasant, obese, no respiratory distress SKIN: Normal color, warm HEENT: [place] palpebral conjunctivae, no ptosis, moist buccal mucosa NECK : Supple, short neck, no tenderness CHEST : CTA, no tenderness HEART : Bradycardic, no obvious murmurs ABDOMEN: Some distention, nontender EXTREMITIES : Minimal LE swelling, no LE tenderness, no other conspicuous deformities noted NEUROLOGIC : Coherent, no facial asymmetry, no other gross focality Results & Data Results & Data ([facility]) Vital Signs (Past 12 Hours) Vital Signs Temp Pulse Pulse Resp BP BP Pulse Ox 04/05/21 00:18 67 20 154/108 H 96 04/04/21 23:11 71 20 175/97 H 97 04/04/21 21:58 58 L 20 188/89 H 98 04/04/21 21:46 63 19 188/89 H 96 04/04/21 21:30 56 L 19 178/76 H 97 04/04/21 21:15 62 23 160/92 H 04/04/21 21:00 68 25 H 173/96 H 04/04/21 20:45 61 22 176/96 H 04/04/21 20:30 61 21 178/110 H 97 04/04/21 20:13 74 76 20 183/100 H 183/100 H 95 04/04/21 20:10 89 164/113 H 04/04/21 20:06 78 21 164/113 H 04/04/21 19:16 36.6 C 134 H 18 180/101 H 97 Laboratory Results Laboratory Results WBC 8.35 K/uL (4.8-10.8) 04/04/21 19:32 RBC 4.79 M/uL (4.2-5.4) 04/04/21 19:32 Hgb 14.3 g/dL (12.0-16.0) 04/04/21 19:32 Hct 42.3 % (37-47) 04/04/21 19:32 MCV 88.3 fL (80-100) 04/04/21 19:32 MCH 29.9 pg (25-34) 04/04/21 19:32 MCHC 33.8 g/dL (32-36) 04/04/21 19:32 RDW Std Deviation 43.8 fL (36.4-46.3) 04/04/21 19:32 RDW Coeff of Leo 13.6 % (11.5-14.5) 04/04/21 19:32 Plt Count 196 K/uL (130-400) 04/04/21 19:32 MPV 10.2 fL (7.4-10.4) 04/04/21 19:32 Immature Gran % (Auto) 0.1 % 04/04/21 19:32 Neut % (Auto) 56.8 % 04/04/21 19:32 Lymph % (Auto) 28.7 % 04/04/21 19:32 [place] % (Auto) 12.0 % 04/04/21 19:32 Eos % (Auto) 2.2 % 04/04/21 19:32 Baso % (Auto) 0.2 % 04/04/21 19:32 Neut # (Auto) 4.74 K/uL (1.4-6.5) 04/04/21 19:32 Lymph # (Auto) 2.40 K/uL (1.2-3.4) 04/04/21 19:32 [place] # (Auto) 1.00 K/uL (0.11-0.59) H 04/04/21 19:32 Eos # (Auto) 0.18 K/uL (0-0.5) 04/04/21 19:32 Baso # (Auto) 0.02 K/uL (0-0.2) 04/04/21 19: Immature Gran # (Auto) 0.01 K/uL (0.00-0.02) 04/04/21 19:32 PT 10.0 Seconds (9.0-12.0) 04/04/21 19:32 INR 1.0 (0.9-1.1) 04/04/21 19:32 APTT 25.1 Seconds (21.0-31.0) 04/04/21 19:32 PTT Ratio 1.0 04/04/21 19:32 Sodium 143 mmol/L (136-145) 04/04/21 19:32 Potassium 3.5 mmol/L (3.5-5.1) 04/04/21 19:32 Chloride 110 mmol/L (98-107) H 04/04/21 19:32 Carbon Dioxide 27 mmol/L (21-32) 04/04/21 19:32 Anion Gap 6.0 (3-11) 04/04/21 19:32 BUN 14 mg/dl (7-18) 04/04/21 19:32 Creatinine 0.72 mg/dl (0.6-1.2) 04/04/21 19:32 Est Cr Clr Drug Dosing 72.7 ml/min 04/04/21 19:32 Est GFR ( Amer) 95.6 ml/min 04/04/21 19:32 Est GFR (Non-Af Amer) 82.5 ml/min 04/04/21 19:32 BUN/Creatinine Ratio 18.8 (10-20) 04/04/21 19:32 Glucose 101 mg/dl (70-99) H 04/04/21 19:32 Calcium 9.6 mg/dl (8.5-10.1) 04/04/21 19:32 Magnesium 2.3 mg/dl (1.8-2.4) 04/04/21 19:32 Total Bilirubin 0.4 mg/dl (0.2-1) 04/04/21 19:32 AST 23 U/L (15-37) 04/04/21 19:32 ALT 24 U/L (12-78) 04/04/21 19:32 Alkaline Phosphatase 68 U/L (45-117) 04/04/21 19:32 Troponin I < 0.015 ng/ml (0-0.045) 04/04/21 19:32 Total Protein 7.6 gm/dl (6.4-8.2) 04/04/21 19:32 Albumin 3.7 gm/dl (3.4-5.0) 04/04/21 19:32 Globulin 3.9 gm/dl (2.5-4.0) 04/04/21 19:32 Albumin/Globulin Ratio 0.9 (0.9-2) 04/04/21 19:32 TSH 2.450 uIu/ml (0.300-4.500) 04/04/21 19:32 COVID-19 Eval Order Covid19 at [facility] 04/04/21 20:02 SARS-CoV-2 (PCR) NEGATIVE (Negative) 04/04/21 20:02 Impressions Chest X-Ray 04/04/21 19:30 SINGLE VIEW CHEST CLINICAL HISTORY: Atypical chest pain. FINDINGS: An AP, portable, upright chest radiograph is compared to study dated 10/13/2012. The heart is enlarged noting atherosclerotic calcification of the thoracic aorta. The pulmonary vasculature is noncongested. There is bibasilar scarring/atelectasis. No airspace consolidation or large pleural effusion is identified. No pneumothorax is seen. The skeletal structures are osteopenic. The bony thorax is grossly intact. IMPRESSION: Cardiomegaly with no active disease in the chest. ACT 112: Negative or not required by law. Electronically signed by: Quang Meza M.D. 04/04/2021 8:[address] head initial read: No acute intracranial hemorrhage, edema or mass. Chronic posterior left basal ganglia lacunar infarct versus prominent perivascular space. No extra-axial fluid collection. No calvarial fracture. Visualized orbits, paranasal sinuses and mastoids are unremarkable CT neck initial read: Moderate calcified plaque at the right carotid bifurcation. Mild calcified plaque at the left carotid bifurcation. Patent bilateral cervical carotid and vertebral arterieswithout significant stenosis, dissection or occlusions. Hypoplastic right vertebral artery. Dominant left vertebral artery. Visualized intracranial anterior and posterior circulation patent without significant stenosis, aneurysm or large vessel occlusions. origin of the left posterior cerebral artery. Asymmetric soft tissue prominence effacing the left vallecula. Consider correlation with direct inspection. Mildlyprominent left jugular chain lymph node. Multiple hypodense thyroid nodules. Cervical soft tissues are otherwise unremarkable. No acute osseous abnormality. CT chest initial read: No thoracic aortic aneurysmor dissection. No acute intramural hematoma. Bovine aortic arch, as before. No CT evidence for pulmonaryembolism. Normal cardiac size. No acute parenchymal lung disease. Stable 4 mmlateral right middle lobe nodule. Stable nodular thickening along the right major fissure which maybe an intrapulmonarylymph node. No pathologic intrathoracic lymphadenopathy. Several subcentimeter hypodense thyroid nodules. Multiple hepatic cysts, as before. Cholecystectomy. No acute osseous abnormality CT abdomen pelvis initial read: No acute intra-abdominal process. Diffuse aortic atherosclerosis. No aneurysmor dissection. Patent celiac, superior mesenteric and inferior mesenteric arteries. Patent bilateral main renal arteries. Patent bilateral common iliac, internal iliac, external iliac and common femoral arteries. Multiple hepatic cysts. Left renal parapelvic cyst. No hydronephrosis. Solid organs are otherwise unremarkable. Cholecystectomy. Prominent common bile duct measuring 12 mmin diameter which maybe related to postcholecystectomystate. No bowel obstruction. Unremarkable appendix. No acute diverticulitis. Hysterectomy. 2 cmright adnexal hypodensitywhich maybe an ovarian/paraovarian cyst or cystic lesion. No ascites, abscess or free air. No acute osseous abnormality. Small fat-containing periumbilical ventral abdominal wall hernia. EKG as per my interpretation rate 55, sinus bradycardia, LAD, LAFB, LVH Code Status & VTE Plan VTE Prophylaxis Plan VTE Prophylaxis will be ordered: Yes
[2021-04-05] MEDS: Heparin IV Adult Wt-Based Standard *NO* Bolus Protocol IV SCH ×2 (00:59→01:52)
[2021-04-05] MEDS: cloNIDine HCL 0.1 MG TAB PO SCH ×3 (01:00→20:56)
[2021-04-05] MEDS: HEPARIN SODIUM/DEXTROSE 25,000 UNITS/500 ML BAG IV SCH ×2 (01:00→21:18)
[2021-04-05] MEDS ORDERED: NITROGLYCERIN SL 0.4 MG/TAB TAB SL PRN (01:50)
[2021-04-05] MEDS ORDERED: LORazepam 0.25 MG/0.5 ML VIAL IV PRN (01:50)
[2021-04-05] MEDS ORDERED: MoRPHine SULFATE 4 MG/ML 1 ML CARP\\VIAL IV PRN (01:50)
[2021-04-05] MEDS ORDERED: PROMETHAZINE HCL 12.5 MG in SODIUM CHLORIDE 0.9% 50 ML IV PRN (01:50)
[2021-04-05] MEDS ORDERED: POTASSIUM CHLORIDE 40 MEQ in SODIUM CHLORIDE 0.45 % 1,000 ML IV ONE (02:30)
[2021-04-05 02:31] LABS: Basophils # (auto) 0.02 K/uL (0-0.2); Basophils % (auto) 0.3 %; Eosinophils # (auto) 0.12 K/uL (0-0.5); Eosinophils % (auto) 1.6 %; Hematocrit (blood only) 38.6 % (37-47); Hemoglobin 12.7 g/dL (12.0-16.0); Immature Granulocytes # (auto) 0.01 K/uL (0.00-0.02); Immature Granulocytes % (auto) 0.1 %; Lymphocytes # (auto) 2.53 K/uL (1.2-3.4); Lymphocytes % (auto) 33.2 %; Mean Corpuscular Hemoglobin 29.7 pg (25-34); Mean Corpuscular Hgb Conc 32.9 g/dL (32-36); Mean Corpuscular Volume 90.2 fL (80-100); Mean Platelet Volume 9.8 fL (7.4-10.4); Monocytes # (auto) 0.81 K/uL (0.11-0.59); Monocytes % (auto) 10.6 %; Neutrophils # (auto) 4.14 K/uL (1.4-6.5); Neutrophils % (auto) 54.2 %; Platelet Count 197 K/uL (130-400); RDW Coefficient of Variation 13.7 % (11.5-14.5); RDW Standard Deviation 45.1 fL (36.4-46.3); Red Blood Count 4.28 M/uL (4.2-5.4); White Blood Count 7.63 K/uL (4.8-10.8)
[2021-04-05] MEDS ORDERED: lisinopril 5 MG TAB PO ONE (02:44)
[2021-04-05 02:50] LABS: BUN Creatinine Ratio 20.3 (10-20); Calcium 9.2 mg/dl (8.5-10.1); Creatinine Clr Calc Pharmacy 87.5 ml/min; Est GFR (African American) 104.1 ml/min; Est GFR (Non-African American) 89.8 ml/min; Potassium 3.7 mmol/L (3.5-5.1)
[2021-04-05 07:26] LABS: Partial Thromboplastin Ratio 2.1
[2021-04-05 07:31] LABS: Partial Thromboplastin Time 54.4 Seconds (21.0-31.0)
--- NOTE | 2021-04-05 07:36 | CT Scan Report ---
CT OF THE HEAD WITHOUT CONTRAST CLINICAL HISTORY: Headache. COMPARISON STUDY: Head CT April 26, 2012. CT and CTA of the head April 24, 2017. CT DOSE: 5305.33 mGy.cm TECHNIQUE: Helical axial images of the head were obtained without IV contrast. Automated exposure con trol was utilized for the study. A dose lowering technique was utilized adhering to the principles o f ALARA. FINDINGS: No acute intracranial hemorrhage, midline shift or mass effect is present. The ventricular system is unremarkable. The basal cisterns are patent. No extra-axial collections are present. There are no findings to suggest acute dural sinus thrombosis or acute territorial infarct. No significant calvarial abnormalities are present. Visualized portions of the sinuses and mastoid air cells are deshawn ar. IMPRESSION: No acute intracranial findings. ACT 112: Negative or not required by law. Electronically signed by: Jorge Calderon M.D. 04/05/2021 7:34 AM
--- NOTE | 2021-04-05 07:39 | CT Scan Report ---
CT ANGIOGRAPHY OF THE NECK WITH CONTRAST CLINICAL HISTORY: Neck pain. COMPARISON STUDY: Cervical spine CT April 26, 2012. Technique: CT angiography of the carotid and vertebral arteries was obtained using Optiray and 3D rec onstruction on an independent workstation. NASCET criteria was utilized. Automated exposure control was utilized for the study. A dose lowering technique was utilized adhering to the principles of ALA RA. Findings: Please note that the CTA of the chest will be reported separately. There is no cervical spi ne fracture. A few prominent cervical lymph nodes are likely benign. There are several small thyroid nodules. The bilateral common carotid, cervical internal carotid and vertebral arteries are patent. T here is mild plaque within the right carotid bifurcation. There is no dissection or aneurysm within t he major vessels of the neck. The left vertebral artery is dominant. The right vertebral artery is di minutive on a congenital basis. There is persistence of the left posterior cerebral artery. IMPRESSION: 1. No stenosis or dissection within the major vessels of the neck. 2. Mild atherosclerotic plaque within the right carotid bifurcation. ACT 112: Negative or not required by law. Electronically signed by: Jorge Calderon M.D. 04/05/2021 7:38 AM
[2021-04-05] MEDS: FAMOTIDINE 40 MG TABLET PO SCH (07:50)
[2021-04-05] MEDS: CEROVITE ADV FORMULA TAB PO SCH (07:50)
--- NOTE | 2021-04-05 07:52 | CT Scan Report ---
CT ANGIOGRAPHY OF THE ABDOMEN AND PELVIS CLINICAL HISTORY: Abdominal pain. COMPARISON STUDY: CT of the abdomen and pelvis April 07, 2014. Renal ultrasound November 13, 2016. TECHNIQUE: Helical axial images of the abdomen and pelvis were obtained following intravenous injecti on 118 cc Optiray 320 IV. Sagittal and coronal reconstructions were viewed. Study was repeated due to IV malfunction on the first scan. Automated exposure control was utilized for the study. A dose low ering technique was utilized adhering to the principles of ALARA. FINDINGS: The caliber of the abdominal aorta is normal. There is moderate atherosclerotic plaque with in the abdominal aorta. The branch vessels are patent. There is no stenosis within the major branch v essels. There is no abdominal aortic aneurysm. No dissection is present. No pneumatosis, free air or portal venous gas is present. Multiple hepatic cysts are noted. Mild dila tation of the common bile duct is likely related to cholecystectomy. The spleen, adrenal glands and p ancreas are unremarkable. There is a 4 mm left renal calculus. There are no ureteral calculi. There i s no hydronephrosis. There is no evidence for a bowel obstruction. The appendix is normal. There is n o free fluid. No lymphadenopathy is present. No acute fracture or suspicious lesion is identified wit hin the visualized skeletal structures. IMPRESSION: 1. Normal caliber abdominal aorta. No dissection. Moderate atherosclerotic plaque within the abdomina l aorta. 2. No acute process within the abdomen or pelvis. 3. Numerous hepatic cysts. 4. No bowel obstruction. No bowel wall thickening. Normal appendix. 5. 4 mm left renal calculus. ACT 112: Negative or not required by law. Electronically signed by: Jorge Calderon M.D. 04/05/2021 7:51 AM
[2021-04-05] MEDS ORDERED: carvediloL 6.25 MG TAB PO SCH (09:00)
--- NOTE | 2021-04-05 09:02 | CT Scan Report ---
CT ANGIOGRAM OF THE CHEST COMBO CLINICAL HISTORY: Chest pain. Back pain COMPARISON STUDY: September 09, 2017 TECHNIQUE: Before and following the IV administration of 118 cc of Optiray, CT angiogram of the chest was performed from the thoracic inlet to the upper abdomen utilizing the dissection protocol. Images are reviewed in the axial, sagittal, and coronal planes. 3-D MIPS images are created and assessed. I V contrast was administered without complication. A dose lowering technique was utilized adhering to the principles of ALARA. CT DOSE: FINDINGS: Suboptimal opacification within aortic arch. Aorta is normal in caliber without aneurysmal dilatation or dissection. Distal portion of thoracic aorta is tortuous. Scattered calcifications of aortic wall are seen. There is adequate opacification within main pulmonary artery. No pulmonary embolus is seen. Pulmonary artery is normal in caliber. There is no right heart strain. Limited evaluation of thyroid gland shows multiple small hypoattenuating lesions within the right and left thyroid lobe which appear more prominent since prior study in 2018. Largest nodule is measuring 6 mm in size and seen within the right thyroid lobe. Esophagus is normal. Heart is normal in size without pericardial effusion. Minimal coronary calcifications are seen. Tracheobronchial tree is patent. Minimal atelectasis at dependent portions of bilateral lower lobes. No infiltrates or consolidative lesions are seen. No pleural effusion demonstrated. -Stable 4 mm nodule is seen at subpleural aspect of the right middle lobe (17/135) which is unchanged since prior study in 2018, presumably benign. -Stable 6 mm pulmonary nodule adjacent to the right major fissure (17/126) Limited evaluation of upper abdominal viscera shows innumerable hypoattenuating lesions of the liver, largest is measuring 7.5 cm in size, seen within left lobe of the liver and unchanged since prior st udy in 2018. Osseous structures: Multilevel degenerative changes of the spine. No definite aggressive osseous lesi ons are seen. IMPRESSION: 1. Normal caliber thoracic aorta without aneurysmal dilatation or dissection. Mild atherosclerotic i nvolvement. 2. No evidence of pulmonary embolus. 3. Interval prominence of multiple small thyroid nodules. Please correlate above-mentioned findings with prior history of thyroid disease. Further evaluation with thyroid ultrasound might be considered . 4. No infiltrates or consolidative lesions are seen. Few stable pulmonary nodules since prior study in 2018; stability over 3 years is reassuring. 5. Multiple hypoattenuating/cystic lesions within liver, grossly unchanged since prior study; incomp letely evaluated on current nondedicated exam. 6. The rest of findings as above. ACT 112: Negative or not required by law. The above report was generated using voice recognition software. It may contain grammatical, syntax o r spelling errors. Electronically signed by: Jackie Epstein DO 04/05/2021 9:01 AM
--- NOTE | 2021-04-05 10:53 | Cardiology Consultation ---
Date of Consultation April 05, 2021 Assessment & Plan (1) Atrial fibrillation with rapid ventricular response: (2) Precordial chest pain: (3) Hypertension: Natural history , pathophysiology, and stroke risk associated with paroxysmal atrial fibrillation discussed. Recommend discontinuation of carvedilol in favor of selective beta-donya, metoprolol 25 mg twice daily. Sinus bradycardia documented in the past without associated symptoms. Concerns regarding asymptomatic tachycardia-bradycardia syndrome. Monitor telemetry. Prolonged QTc noted on ECG today. Patient is not a candidate for antiarrhythmic therapies including sotalol or dofetilide. Continue IV anticoagulation with heparin. Transition to Eliquis 5 mg twice daily prior to discharge. 2D transthoracic echocardiogram ordered with results pending. Patient taking clonidine 0.2 mg nightly, indication unclear. Reduce clonidine to 0.1 mg nightly with plans to wean off medication and allow for titration of beta-donya therapy. History of Present Illness Reason for Consultation: Paroxysmal atrial fibrillation with rapid ventricular response Requesting Physician: Dr. Zhang Attending Physician: Navid Conley MD History of Present Illness 75-year-old female presented to the emergency department with chest and interscapular discomfort. Patient reports a feeling of tightness, "as if someone is squeezing me", with discomfort radiating to her interscapular region. No associated shortness of breath. The symptoms began approximately 3 years ago. Initially, symptoms were brief, lasting less than 1-2 minutes. A dobutamine stress echo was performed in 2018 which was negative for inducible ischemia. Most recent symptoms occurred at rest lasting more than 1 hour. She came to the ER and was found to be atrial fibrillation with rapid ventricular response. Complains of intermittent palpitations. Spontaneously converted to sinus rhythm in the ER. Received dose of carvedilol this morning and potassium supplementation. 2D echocardiogram pending. Her cardiac enzymes are negative. Currently, patient is resting comfortably. Denies orthopnea, PND, or lower extremity edema. No visual changes, slurred speech, focal weakness, paresthesias, or facial asymmetry. Notes mild unsteadiness this morning. History of positional vertigo primarily when lying supine with her neck extended. Denies personal history of diabetes, congestive heart failure, rheumatic fever as a child, TIA, or cerebrovascular accident. Allergies Allergy/AdvReac Type Severity Reaction Status Date / Time capsaicin Allergy Intermediate elevated Verified 04/04/21 21:00 liver enzymes diclofenac Allergy Intermediate elevated Verified 04/04/21 21:00 liver enzymes NSAIDS (Non-Steroidal Allergy Intermediate ELEVATED Verified 04/04/21 21:00 Anti-Inflamma LIVER ENZYMES IN THE PAST Home Medications Medication Instructions Recorded Confirmed Type amitriptyline 10 mg tablet 10 mg PO HS 11/29/18 04/04/21 History carvedilol 6.25 mg tablet 6.25 mg PO BID 11/29/18 04/04/21 History clonidine HCl 0.1 mg tablet 0.2 mg PO HS 11/29/18 04/04/21 History hydrochlorothiazide 25 mg tablet 25 mg PO QAM 11/29/18 04/04/21 History pravastatin 20 mg tablet 20 mg PO HS 11/29/18 04/04/21 History Juice Plus 2 cap PO BID 02/10/19 04/04/21 History aspirin 81 mg tablet,delayed 81 mg PO HS 02/10/19 04/04/21 History release potassium chloride 10 mEq 10 meq PO QAM 02/10/19 04/04/21 History tablet,extended release acetaminophen 500 mg tablet 1,000 mg PO Q6H PRN 04/04/21 04/04/21 History ascorbic acid (vitamin C) 500 mg 500 mg PO BID 04/04/21 04/04/21 History tablet (Vitamin C) calcium carbonate 500 mg calcium 500 mg PO DAILY 04/04/21 04/04/21 History (1,250 mg) tablet (Calcium 500) famotidine 40 mg tablet 40 mg PO DAILY 04/04/21 04/04/21 History multivitamin with minerals 1 tab PO DAILY 04/04/21 04/04/21 History polyethylene glycol 3350 17 17 g PO DAILY PRN 04/04/21 04/04/21 History gram/dose oral powder (Miralax) apixaban 5 mg tablet (Eliquis) 5 mg PO BID #60 tab 04/05/21 Rx Patient History Medical History Anemia HX Anxiety Depression Hyperlipidemia Hypertension Irritable bowel syndrome Kidney stones Migraine HX OF Osteoarthritis Surgical History History of cataract surgery LEFT History of cholecystectomy History of colonoscopy History of esophagogastroduodenoscopy (EGD) History of hysterectomy History of lithotripsy History of tooth extraction History of total knee replacement RT/LEFT Family History Mother Family history of diabetes mellitus Social History Smoking Status: Never smoker Second Hand Exposure: No; Hx Alcohol Use: No Hx Substance Use: No Preferred Language: Cymraes Communication Ability: Effective 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 Beliefs That Will Affect Care: None Current Living Situation: Spouse Feels Safe at Home: Yes Safety Concerns: Feels Safe At This Time Assistive Devices: None Review of Systems Review of Systems: All systems reviewed & are unremarkable except as noted in Subjective Physical Exam Constitutional: well developed and well nourished; no acute distress Respiratory: normal respiratory effort; no respiratory distress, no labored breathing and no retractions Auscultation: lungs clear to auscultation bilaterally; no crackles, no rales and no rhonchi Cardiovascular: Rate/Rhythm: regular rate and regular rhythm Heart Sounds: normal S1 and normal S2; no gallop, no murmur and no cardiac rub Vessels: radial pulses present; no JVD and no carotid bruit Gastrointestinal (Abdomen): Inspection/Auscultation: abdomen normal to inspection and normal bowel sounds; abdomen not distended and no abdominal edema Percussion/Palpation: abdomen soft; abdomen nontender, no guarding and abdomen not rigid Neurologic: CN's II-XI intact bilaterally and moves all extremities; no focal motor deficits Motor/Sensory: no tremor Cranial Nerves: PERRL Psychiatric: A+Ox3, euthymic affect Results & Data ([facility]) Vital Signs (Past 12 Hours) Vital Signs Temp Pulse Pulse Resp BP BP Pulse Ox 04/05/21 08:00 60 04/05/21 07:34 36.5 C 62 18 134/82 96 04/05/21 04:08 95/60 L 04/05/21 03:29 36.4 C L 59 L 20 101/65 96 04/05/21 02:11 58 L 04/05/21 02:00 37.1 C 66 19 184/95 H 95 04/05/21 01:40 64 20 161/79 H 92 04/05/21 01:03 61 20 148/90 H 96 04/05/21 00:18 67 20 154/108 H 96 04/04/21 23:11 71 20 175/97 H 97 Diagnostic Findings Dobutamine stress echo report summary 04/02/2018: The stress echo is negative for inducible ischemia. No arrhythmias. Normal HR and BP response to exercise. At rest, normal LV chamber size with mild concentric LVH. Normal LV systolic function without regional wall motion abnormality, EF 60-65%. Grade I diastolic dysfunction. No significant valvular pathology. Mild left atrial enlargement. Mild ascending aortic enlargement. (1) Hypertension Hypertension type: unspecified Qualified Code(s): I10 - Essential (primary) hypertension
[2021-04-05] MEDS: ASPIRIN 81 MG ECTAB PO SCH (20:55)
[2021-04-05] MEDS: AMITRIPTYLINE HCL 10 MG TAB PO SCH (20:55)
[2021-04-05] MEDS: METOPROLOL TARTRATE 25 MG TAB PO SCH (20:57)
[2021-04-05] MEDS: PRAVASTATIN SOD 20 MG TAB PO SCH (20:58)
--- NOTE | 2021-04-06 05:37 | Electrocardiogram Report ---
Test Reason : Blood Pressure : / mmHG Vent. Rate : 133 BPM Atrial Rate : 127 BPM P-R Int : 000 ms QRS Dur : 092 ms QT Int : 280 ms P-R-T Axes : 000 005 087 degrees QTc Int : 416 ms Poor data quality, interpretation may be adversely affected Atrial fibrillation with rapid ventricular response Nonspecific ST and T wave abnormality Abnormal ECG When compared with ECG of 02-MAY-2017 02:49, Atrial fibrillation has replaced Sinus rhythm Vent. rate has increased BY [address] abnormality is now Present Confirmed by Kvng Gibson ([id number]) on 04/06/2021 5:36:56 AM Referred By: REFERRED SELF Confirmed By:Kvng Gibson
--- NOTE | 2021-04-06 05:38 | Electrocardiogram Report ---
Test Reason : Blood Pressure : / mmHG Vent. Rate : 056 BPM Atrial Rate : 056 BPM P-R Int : 192 ms QRS Dur : 102 ms QT Int : 458 ms P-R-T Axes : 049 -13 026 degrees QTc Int : 441 ms Sinus bradycardia with sinus arrhythmia Moderate voltage criteria for LVH, may be normal variant Borderline ECG When compared with ECG of 04-APR-2021 19:25, Sinus rhythm has replaced Atrial fibrillation Vent. rate has decreased BY [address] no longer depressed in Lateral leads Nonspecific T wave abnormality no longer evident in Lateral leads Confirmed by Kvng Gibson ([id number]) on 04/06/2021 5:38:19 AM Referred By: REFERRED SELF Confirmed By:Kvng Gibson
--- NOTE | 2021-04-06 05:43 | Electrocardiogram Report ---
Test Reason : Blood Pressure : / mmHG Vent. Rate : 062 BPM Atrial Rate : 062 BPM P-R Int : 192 ms QRS Dur : 104 ms QT Int : 484 ms P-R-T Axes : 062 005 048 degrees QTc Int : 491 ms Normal sinus rhythm Prolonged QT Abnormal ECG When compared with ECG of 04-APR-2021 20:51, QT has lengthened Confirmed by Kvng Gibson ([id number]) on 04/06/2021 5:43:21 AM Referred By: REFERRED SELF Confirmed By:Kvng Gibson
[2021-04-06 06:35] LABS: Hematocrit (blood only) 35.4 % (37-47); Hemoglobin 11.3 g/dL (12.0-16.0); Mean Corpuscular Hemoglobin 29.2 pg (25-34); Mean Corpuscular Hgb Conc 31.9 g/dL (32-36); Mean Corpuscular Volume 91.5 fL (80-100); Platelet Count 174 K/uL (130-400); RDW Standard Deviation 46.5 fL (36.4-46.3); Red Blood Count 3.87 M/uL (4.2-5.4); White Blood Count 6.33 K/uL (4.8-10.8)
[2021-04-06 07:10] LABS: BUN Creatinine Ratio 18.5 (10-20); Creatinine Clr Calc Pharmacy 69.6 ml/min; Est GFR (African American) 97.3 ml/min; Est GFR (Non-African American) 83.9 ml/min; Magnesium 2.2 mg/dl (1.8-2.4); Potassium 3.8 mmol/L (3.5-5.1)
[2021-04-06 07:33] LABS: Partial Thromboplastin Time 77.7 Seconds (21.0-31.0)
[2021-04-06] MEDS: METOPROLOL TARTRATE 25 MG TAB PO SCH ×2 (08:44→20:54)
[2021-04-06] MEDS: FAMOTIDINE 40 MG TABLET PO SCH (08:45)
[2021-04-06] MEDS: CEROVITE ADV FORMULA TAB PO SCH (08:45)
[2021-04-06] MEDS ORDERED: lisinopril 5 MG TAB PO SCH (09:00)
[2021-04-06] MEDS: APIXABAN 5 MG TABLET PO SCH ×2 (12:38→20:53)
--- NOTE | 2021-04-06 12:54 | Cardiology Progress Note ---
Date of Service April 06, 2021 Assessment & Plan (1) Atrial fibrillation with rapid ventricular response: (2) Precordial chest pain: (3) Hypertension: Plan: Natural history , pathophysiology, and stroke risk associated with paroxysmal atrial fibrillation discussed. Continue metoprolol tartrate 25 mg twice daily. Consider transition to Toprol- XL pending outpatient evaluation. No significant bradycardia recorded on telemetry overnight. Continue Eliquis 5 mg twice daily. Prolonged QTc noted on ECG during hospitalization. Patient is not a candidate for antiarrhythmic therapies including sotalol or dofetilide. Clonidine reduced to 0.1 mg nightly during hospitalization. Consider further reduction/discontinuation in the outpatient setting. No further inpatient cardiology testing or intervention at this time. Outpatient cardiology follow- up in 2 weeks. Admission and Anticipated Discharge Date Admission Date: April 05, 2021 Subjective Patient seen exam at the bedside. Feeling well from a cardiovascular perspective today. Telemetry reveals sinus rhythm with heart rate ranging from 60-75 bpm. No chest pain or palpitations overnight. Voices concern regarding cost of Eliquis. Provided with manufacture discount coupons. Carvedilol transition to metoprolol. Blood pressure labile over the past 12 hours. No visual change, slurred speech, focal weakness, or paresthesias. Review of Systems Review of Systems: All systems reviewed & are unremarkable except as noted in Subjective Physical Exam Constitutional: well developed and well nourished; no acute distress Respiratory: normal respiratory effort; no respiratory distress, no labored breathing and no retractions Auscultation: lungs clear to auscultation bilaterally; no crackles, no rales and no rhonchi Cardiovascular: Rate/Rhythm: regular rate and regular rhythm Heart Sounds: normal S1 and normal S2; no gallop, no murmur and no cardiac rub Vessels: radial pulses present; no JVD and no carotid bruit Gastrointestinal (Abdomen): Inspection/Auscultation: abdomen normal to inspection and normal bowel sounds; abdomen not distended and no abdominal edema Percussion/Palpation: abdomen soft; abdomen nontender, no guarding and abdomen not rigid Neurologic: CN's II-XI intact bilaterally and moves all extremities; no focal motor deficits Motor/Sensory: no tremor Cranial Nerves: PERRL Psychiatric: A+Ox3, euthymic affect Results & Data ([facility]) Vital Signs (Past 12 Hours) Vital Signs Temp Pulse Pulse Resp BP BP Pulse Ox 09/02/21 11:43 36.6 C 62 12 179/84 H 96 04/06/21 09:06 164/91 H 04/06/21 07:58 37.0 C 59 L 18 126/83 92 04/06/21 07:02 61 04/06/21 05:27 36.6 C 54 L 16 105/65 92 (1) Hypertension Hypertension type: unspecified Qualified Code(s): I10 - Essential (primary) hypertension
--- NOTE | 2021-04-06 13:58 | Hospitalist Progress Note ---
Date of Service April 06, 2021 Assessment & Plan (1) Atrial fibrillation with rapid ventricular response: Plan: New onset AF currently NSR Suboptimal BP control Anxiety contributory Cardiology consulted Coreg switched to metoprolol and clonidine dose decreased Patient continues to be in sinus rhythm however BP labile (04/06) Started on Eliquis 5 mg twice daily Cont. lisinopril and restart home HCTZ, cont. to closely monitor TTE - EF 65 to 70%, diffuse mild concentric LVH. Asymmetric LV hypertrophy involving the basal septum. Maximal septal thickness 1.5 cm. LA is moderately dilated. There is mild mitral regurg. Grade 1 diastolic function. Anxiolytic as needed Hyperlipidemia on statin Rx PVD as per records DVT prophylaxis: IV heparin - now on Eliquis Full code Patient's daughter - Ms. Torrie Rodriguez, contact #[phone]. Admission and Anticipated Discharge Date Admission Date: April 05, 2021 Subjective Patient seen in follow-up of Spenser ramirez, currently in sinus rhythm Denies any shortness of breath, chest pain, headache, also denies any dizziness or lightheadedness BP labile Started on Eliquis Review of Systems Review of Systems: All systems reviewed & are unremarkable except as noted in Subjective Physical Exam Physical Exam: GENERAL: Comfortable, obese F, in NAD HEENT: NC/AT, EOMI, PERRL NECK : Supple, short neck, no tenderness CHEST : CTA, no tenderness HEART : RRR, no obvious murmurs ABDOMEN: soft, + bowel sounds, some distention, nontender EXTREMITIES : Minimal LE swelling, no LE tenderness, moves extremities SKIN: Normal color, warm NEUROLOGIC : Coherent, no facial asymmetry, speech fluent, moves extremities Results & Data Results & Data ([facility]) Vital Signs (Past 12 Hours) Vital Signs Temp Pulse Pulse Resp BP BP Pulse Ox 04/06/21 11:43 36.6 C 62 12 179/84 H 96 04/06/21 09:06 164/91 H 04/06/21 07:58 37.0 C 59 L 18 126/83 92 04/06/21 07:02 61 04/06/21 05:27 36.6 C 54 L 16 105/65 92 Laboratory Results 04/06/21 04/06/21 04/06/21 Range/Units 14:19 05:37 05:37 WBC 6.33 (4.8-10.8) K/uL RBC 3.87 L (4.2-5.4) M/uL Hgb 11.3 L (12.0-16.0) g/dL Hct 35.4 L (37-47) % MCV 91.5 (80-100) fL MCH 29.2 (25-34) pg MCHC 31.9 L (32-36) g/dL RDW Std Deviation 46.5 H (36.4-46.3) fL RDW Coeff of Leo 14.0 (11.5-14.5) % Plt Count 174 (130-400) K/uL MPV 10.0 (7.4-10.4) fL APTT 29.1 (21.0-31.0) Seconds PTT Ratio 1.1 Sodium 142 (136-145) mmol/L Potassium 3.8 (3.5-5.1) mmol/L Chloride 110 H (98-107) mmol/L Carbon Dioxide 29 (21-32) mmol/L Anion Gap 4.0 (3-11) BUN 13 (7-18) mg/dl Creatinine 0.71 (0.6-1.2) mg/dl Est Cr Clr Drug Dosing 69.6 ml/min Est GFR ( Amer) 97.3 ml/min Est GFR (Non-Af Amer) 83.9 ml/min BUN/Creatinine Ratio 18.5 (10-20) Glucose 98 (70-99) mg/dl Calcium 9.0 (8.5-10.1) mg/dl Phosphorus 4.0 (2.5-4.9) mg/dl Magnesium 2.2 (1.8-2.4) mg/dl 04/06/21 Range/Units 05:37 WBC (4.8-10.8) K/uL RBC (4.2-5.4) M/uL Hgb (12.0-16.0) g/dL Hct (37-47) % MCV (80-100) fL MCH (25-34) pg MCHC (32-36) g/dL RDW Std Deviation (36.4-46.3) fL RDW Coeff of Leo (11.5-14.5) % Plt Count (130-400) K/uL MPV (7.4-10.4) fL APTT 77.7 H* (21.0-31.0) Seconds PTT Ratio 3.0 Sodium (136-145) mmol/L Potassium (3.5-5.1) mmol/L Chloride (98-107) mmol/L Carbon Dioxide (21-32) mmol/L Anion Gap (3-11) BUN (7-18) mg/dl Creatinine (0.6-1.2) mg/dl Est Cr Clr Drug Dosing ml/min Est GFR ( Amer) ml/min Est GFR (Non-Af Amer) ml/min BUN/Creatinine Ratio (10-20) Glucose (70-99) mg/dl Calcium (8.5-10.1) mg/dl Phosphorus (2.5-4.9) mg/dl Magnesium (1.8-2.4) mg/dl Medications Administered Current Inpatient Medications Acetaminophen (Acetaminophen 325 Mg Tab) 650 mg PO Q4H PRN PRN Reason: Pain or Fever Stop: 05/05/21 01:49 Amitriptyline HCl (Amitriptyline Hcl 10 Mg Tab) [address] [facility] Stop: 05/05/21 20:59 Last Admin: 04/05/21 20:55 Dose: 10 mg Documented by: Apixaban (Apixaban 5 Mg Tablet) 5 mg PO BID [facility] Stop: 05/06/21 11:44 Last Admin: 04/06/21 12:38 Dose: 5 mg Documented by: Aspirin (Aspirin 81 Mg Ectab) [address] [facility] Stop: 05/05/21 20:59 Last Admin: 04/05/21 20:55 Dose: 81 mg Documented by: Clonidine HCl (Clonidine Hcl 0.1 Mg Tab) 0.[address] [facility] Stop: 05/05/21 20:59 Last Admin: 04/05/21 20:56 Dose: 0.1 mg Documented by: Famotidine (Famotidine 40 Mg Tablet) 40 mg PO DAILY [facility] Stop: 05/05/21 08:59 Last Admin: 04/06/21 08:45 Dose: 40 mg Documented by: Hydralazine HCl (Hydralazine Hcl 25 Mg Tab) 25 mg PO Q6H PRN PRN Reason: sbp > 170 Stop: 05/06/21 15:29 Hydrochlorothiazide (Hydrochlorothiazide 25 Mg Tab) 25 mg PO QA [facility] Stop: 05/06/21 15:44 Promethazine HCl 12.5 mg/ (Sodium Chloride) 50.5 mls @ 202 mls/hr IV Q6H PRN PRN Reason: Nausea And Vomiting Stop: 05/05/21 01:49 Last Infusion: 04/05/21 03:34 Dose: Infused Documented by: Lorazepam (Ativan) 0.25 mg in 0.5 mls @ 0.5 mls/min IV Q4H PRN PRN Reason: Anxiety Stop: 05/05/21 01:49 Lisinopril (Lisinopril 5 Mg Tab) 5 mg PO QAM [facility] Stop: 05/06/21 08:59 Last Admin: 04/06/21 08:45 Dose: 5 mg Documented by: Metoprolol Tartrate (Metoprolol Tartrate 25 Mg Tab) 25 mg PO BID [facility] Stop: 05/05/21 20:59 Last Admin: 04/06/21 08:44 Dose: 25 mg Documented by: Morphine Sulfate (Morphine Sulfate 4 Mg/Ml 1 Ml Carp\Vial) 4 mg IV Q4H PRN PRN Reason: Pain Stop: 04/19/21 01:49 Multivitamins/Minerals (Cerovite Adv Formula Tab) 1 tab PO DAILY [facility] Stop: 05/05/21 08:59 Last Admin: 04/06/21 08:45 Dose: 1 tab Documented by: Nitroglycerin (Nitroglycerin Sl 0.4 Mg/Tab Tab) 0.4 mg SL UD PRN PRN Reason: Chest Pain Stop: 05/05/21 01:49 Pravastatin Sodium (Pravastatin Sod 20 Mg Tab) 20 mg PO HS [facility] Stop: 05/05/21 20:59 Last Admin: 04/05/21 20:58 Dose: 20 mg Documented by: Tramadol HCl (Tramadol Hcl 50 Mg Tablet) 25 - 50 mg PO Q4H PRN PRN Reason: Pain Stop: 05/05/21 01:49
[2021-04-06] MEDS ORDERED: hydrALAZINE HCL 20 MG/ML VIAL IV ONE (14:08)
[2021-04-06 14:39] LABS: Partial Thromboplastin Ratio 1.1; Partial Thromboplastin Time 29.1 Seconds (21.0-31.0)
[2021-04-06] MEDS ORDERED: hydrALAZINE HCL 25 MG TAB PO PRN (15:21)
[2021-04-06] MEDS: hydroCHLOROthiazide 25 MG TAB PO SCH (16:29)
[2021-04-06] MEDS: PRAVASTATIN SOD 20 MG TAB PO SCH (20:52)
[2021-04-06] MEDS: ASPIRIN 81 MG ECTAB PO SCH (20:54)
[2021-04-06] MEDS: cloNIDine HCL 0.1 MG TAB PO SCH (20:55)
[2021-04-06] MEDS: AMITRIPTYLINE HCL 10 MG TAB PO SCH (20:57)
[2021-04-06] MEDS: ACETAMINOPHEN 325 MG TAB PO PRN (21:55)
[2021-04-07] MEDS: ACETAMINOPHEN 325 MG TAB PO PRN ×4 (06:13→20:21)
--- NOTE | 2021-04-07 06:15 | Electrocardiogram Report ---
Test Reason : Blood Pressure : / mmHG Vent. Rate : 060 BPM Atrial Rate : 060 BPM P-R Int : 194 ms QRS Dur : 094 ms QT Int : 464 ms P-R-T Axes : 054 006 050 degrees QTc Int : 464 ms Normal sinus rhythm Normal ECG When compared with ECG of 05-APR-2021 05:32, No significant change was found Confirmed by Kvng Gibson ([id number]) on 04/07/2021 6:15:01 AM Referred By: REFERRED SELF Confirmed By:Kvng Gibson
[2021-04-07 07:07] LABS: BUN Creatinine Ratio 18.4 (10-20); Creatinine Clr Calc Pharmacy 67.9 ml/min; Est GFR (African American) 88.2 ml/min; Est GFR (Non-African American) 76.1 ml/min; Magnesium 2.2 mg/dl (1.8-2.4); Phosphorus 3.8 mg/dl (2.5-4.9); Potassium 3.4 mmol/L (3.5-5.1)
[2021-04-07] MEDS ORDERED: POTASSIUM CHLORIDE CRTAB 20 MEQ TABCR PO STA (08:08)
--- NOTE | 2021-04-07 08:10 | Hospitalist Progress Note ---
Date of Service April 07, 2021 Assessment & Plan (1) Atrial fibrillation with rapid ventricular response: Plan: New onset AF currently NSR Suboptimal BP control Anxiety contributory Cardiology consulted Coreg switched to metoprolol and clonidine dose decreased Patient continues to be in sinus rhythm however BP labile (04/07) Started on Eliquis 5 mg twice daily Cont. lisinopril and restart home HCTZ (25 mg daily), cont. to closely monitor Lisinopril increased to 10 mg daily Hydralazine 25 prn TTE - EF 65 to 70%, diffuse mild concentric LVH. Asymmetric LV hypertrophy involving the basal septum. Maximal septal thickness 1.5 cm. LA is moderately dilated. There is mild mitral regurg. Grade 1 diastolic function. Anxiolytic as needed Hyperlipidemia on statin Rx PVD as per records DVT prophylaxis: was on IV heparin - now on Eliquis Full code Patient's daughter - Ms. Torrie Rodriguez, contact #[phone]. Admission and Anticipated Discharge Date Admission Date: April 06, 2021 Subjective Patient seen in follow-up of Spenser ramirez,labile BP Denies any shortness of breath, chest pain, also denies any dizziness or lightheadedness However, developed pain behind her R ear early this AM -reports she can move neck without difficulty, no change in vision, no change in speech or any other concerning symptoms BP labile, still quite hypertensive overnight. Lisinopril increased to 10 mg today. Started on Eliquis Review of Systems Review of Systems: All systems reviewed & are unremarkable except as noted in Subjective Physical Exam Physical Exam: GENERAL: obese F, in NAD HEENT: NC/AT, EOMI, PERRL NECK : Supple, short neck, no tenderness CHEST : CTA, no tenderness HEART : RRR, no obvious murmurs ABDOMEN: soft, + bowel sounds, some distention, nontender EXTREMITIES : Minimal LE swelling, no LE tenderness, moves extremities SKIN: Normal color, warm NEUROLOGIC : Coherent, no facial asymmetry, speech fluent, moves extremities Results & Data Results & Data ([facility]) Vital Signs (Past 12 Hours) Vital Signs Temp Pulse Pulse Resp BP BP Pulse Ox 04/07/21 07:30 36.7 C 65 16 169/79 H 98 04/07/21 07:13 59 L 04/07/21 04:00 37.0 C 62 18 154/82 H 95 04/06/21 22:51 36.5 C 63 18 155/83 H 95 04/06/21 21:45 69 154/89 H 94 04/06/21 20:19 78 198/109 H 97 Laboratory Results 04/07/21 04/06/21 Range/Units 05:57 14:19 APTT 29.1 (21.0-31.0) Seconds PTT Ratio 1.1 Sodium 141 (136-145) mmol/L Potassium 3.4 L (3.5-5.1) mmol/L Chloride 107 (98-107) mmol/L Carbon Dioxide 30 (21-32) mmol/L Anion Gap 3.0 (3-11) BUN 14 (7-18) mg/dl Creatinine 0.77 (0.6-1.2) mg/dl Est Cr Clr Drug Dosing 67.9 ml/min Est GFR ( Amer) 88.2 ml/min Est GFR (Non-Af Amer) 76.1 ml/min BUN/Creatinine Ratio 18.4 (10-20) Glucose 92 (70-99) mg/dl Calcium 9.0 (8.5-10.1) mg/dl Phosphorus 3.8 (2.5-4.9) mg/dl Magnesium 2.2 (1.8-2.4) mg/dl Medications Administered Current Inpatient Medications Acetaminophen (Acetaminophen 325 Mg Tab) 650 mg PO Q4H PRN PRN Reason: Pain or Fever Stop: 05/05/21 01:49 Last Admin: 04/07/21 06:13 Dose: 650 mg Documented by: Amitriptyline HCl (Amitriptyline Hcl 10 Mg Tab) 10 mg PO [facility] Stop: 05/05/21 20:59 Last Admin: 04/06/21 20:57 Dose: 10 mg Documented by: Apixaban (Apixaban 5 Mg Tablet) 5 mg PO BID [facility] Stop: 05/06/21 11:44 Last Admin: 04/06/21 20:53 Dose: 5 mg Documented by: Aspirin (Aspirin 81 Mg Ectab) 81 [address] [facility] Stop: 05/05/21 20:59 Last Admin: 04/06/21 20:54 Dose: 81 mg Documented by: Clonidine HCl (Clonidine Hcl 0.1 Mg Tab) 0.1 mg PO [facility] Stop: 05/05/21 20:59 Last Admin: 04/06/21 20:55 Dose: 0.1 mg Documented by: Famotidine (Famotidine 40 Mg Tablet) 40 mg PO DAILY [facility] Stop: 05/05/21 08:59 Last Admin: 04/06/21 08:45 Dose: 40 mg Documented by: Hydralazine HCl (Hydralazine Hcl 25 Mg Tab) 25 mg PO Q6H PRN PRN Reason: sbp > 170 Stop: 05/06/21 15:29 Hydrochlorothiazide (Hydrochlorothiazide 25 Mg Tab) 25 mg PO QAM [facility] Stop: 05/06/21 15:44 Last Admin: 04/06/21 16:29 Dose: 25 mg Documented by: Promethazine HCl 12.5 mg/ (Sodium Chloride) 50.5 mls @ 202 mls/hr IV Q6H PRN PRN Reason: Nausea And Vomiting Stop: 05/05/21 01:49 Last Infusion: 04/05/21 03:34 Dose: Infused Documented by: Lorazepam (Ativan) 0.25 mg in 0.5 mls @ 0.5 mls/min IV Q4H PRN PRN Reason: Anxiety Stop: 05/05/21 01:49 Lisinopril (Lisinopril 10 Mg Tab) 10 mg PO QAM [facility] Stop: 05/07/21 08:59 Metoprolol Tartrate (Metoprolol Tartrate 25 Mg Tab) 25 mg PO BID [facility] Stop: 05/05/21 20:59 Last Admin: 04/06/21 20:54 Dose: 25 mg Documented by: Morphine Sulfate (Morphine Sulfate 4 Mg/Ml 1 Ml Carp\Vial) 4 mg IV Q4H PRN PRN Reason: Pain Stop: 04/19/21 01:49 Multivitamins/Minerals (Cerovite Adv Formula Tab) 1 tab PO DAILY [facility] Stop: 05/05/21 08:59 Last Admin: 04/06/21 08:45 Dose: 1 tab Documented by: Nitroglycerin (Nitroglycerin Sl 0.4 Mg/Tab Tab) 0.4 mg SL UD PRN PRN Reason: Chest Pain Stop: 05/05/21 01:49 Potassium Chloride (Potassium Chloride Crtab 20 Meq Tabcr) 40 meq PO NOW STA Stop: 04/07/21 08:09 Pravastatin Sodium (Pravastatin Sod 20 Mg Tab) 20 mg PO HS [facility] Stop: 05/05/21 20:59 Last Admin: 04/06/21 20:52 Dose: 20 mg Documented by: Tramadol HCl (Tramadol Hcl 50 Mg Tablet) 25 - 50 mg PO Q4H PRN PRN Reason: Pain Stop: 05/05/21 01:49
[2021-04-07] MEDS: METOPROLOL TARTRATE 25 MG TAB PO SCH ×2 (08:32→20:22)
[2021-04-07] MEDS: APIXABAN 5 MG TABLET PO SCH ×2 (08:32→20:22)
[2021-04-07] MEDS: lisinopril 10 MG TAB PO SCH (08:32)
[2021-04-07] MEDS: hydroCHLOROthiazide 25 MG TAB PO SCH (08:32)
[2021-04-07] MEDS: CEROVITE ADV FORMULA TAB PO SCH (08:32)
[2021-04-07] MEDS: FAMOTIDINE 40 MG TABLET PO SCH (08:32)
[2021-04-07] MEDS: traMADol HCL 50 MG TABLET PO PRN (10:41)
[2021-04-07] MEDS ORDERED: hydrALAZINE HCL 25 MG TAB PO STA (12:27)
[2021-04-07] MEDS ORDERED: LORazepam 0.5 MG TAB PO PRN (12:33)
--- NOTE | 2021-04-07 13:31 | Cardiology Progress Note ---
Date of Service April 07, 2021 Assessment & Plan (1) Atrial fibrillation with rapid ventricular response: (2) Precordial chest pain: (3) Hypertension: (4) Headache: Plan: Natural history , pathophysiology, and stroke risk associated with paroxysmal atrial fibrillation discussed. Continue metoprolol tartrate 25 mg twice daily and Eliquis. Sinus bradycardia noted on telemetry. I would prefer to ultimately discontinue clonidine with transition to alternative antihypertensive medications. Lisinopril added during hospitalization and titrated to 10 mg daily. Consider addition of amlodipine in the outpatient setting. Prolonged QTc noted on ECG during hospitalization. Patient is not a candidate for antiarrhythmic therapies including sotalol or dofetilide. In regard to headache, patient's symptoms have responded to tramadol. Consider CT of the head for further evaluation. Further evaluation and management as per internal medicine. Monitor home blood pressure 2-3 days/week, approximately 2 hours after a.m. medications. Restrict sodium intake to less than 1.5 g daily. Outpatient cardiology follow-up in 2 weeks. Admission and Anticipated Discharge Date Admission Date: April 06, 2021 Subjective Patient seen and examined at the bedside. Reports headache beginning in the early a.m. Describes a "shocklike" sensation in her right posterior occipital region. Discomfort became significant and she requested analgesic. Initially treated with Tylenol with mild relief. Reports significant improvement with addition of tramadol. No visual change, slurred speech, focal weakness, paresthesias, or facial asymmetry. Blood pressure remains elevated. Lisinopril added yesterday with dose increased to 10 mg daily this morning. Carvedilol transition to metoprolol due to symptomatic paroxysmal atrial fibrillation. She is not a candidate for sotalol or dofetilide due to QT prolongation. Telemetry reveals sinus rhythm and sinus bradycardia. Heart rate as low as 40 bpm noted during presumed hours of sleep. Patient denies any lightheadedness or dizziness. Review of Systems Review of Systems: All systems reviewed & are unremarkable except as noted in Subjective Physical Exam Constitutional: well developed and well nourished; no acute distress Respiratory: normal respiratory effort; no respiratory distress, no labored breathing and no retractions Auscultation: lungs clear to auscultation bilaterally; no crackles, no rales and no rhonchi Cardiovascular: Rate/Rhythm: regular rate and regular rhythm Heart Sounds: normal S1 and normal S2; no gallop, no murmur and no cardiac rub Vessels: radial pulses present; no JVD and no carotid bruit Gastrointestinal (Abdomen): Inspection/Auscultation: abdomen normal to inspection and normal bowel sounds; abdomen not distended and no abdominal edema Percussion/Palpation: abdomen soft; abdomen nontender, no guarding and abdomen not rigid Neurologic: CN's II-XI intact bilaterally and moves all extremities; no focal motor deficits Motor/Sensory: no tremor Cranial Nerves: PERRL Psychiatric: A+Ox3, euthymic affect Results & Data ([facility]) Vital Signs (Past 12 Hours) Vital Signs Temp Pulse Pulse Resp BP BP Pulse Ox 04/07/21 13:21 162/74 H 04/07/21 11:29 36.6 C 50 L 16 185/90 H 96 04/07/21 07:30 36.7 C 65 16 169/79 H 98 04/07/21 07:13 59 L 04/07/21 04:00 37.0 C 62 18 154/82 H 95 (1) Hypertension Hypertension type: unspecified Qualified Code(s): I10 - Essential (primary) hypertension
--- NOTE | 2021-04-07 14:52 | CT Scan Report ---
CT SCAN OF THE BRAIN WITHOUT IV CONTRAST CLINICAL HISTORY: Headache. Hypertension. Anticoagulated patient. COMPARISON STUDY: CT of the brain dated 04/04/2021. TECHNIQUE: Unenhanced axial CT scan of the brain is performed from the vertex to the skull base. A do se lowering technique was utilized adhering to the principles of ALARA. CT DOSE: 638.56 mGycm FINDINGS: Brain parenchyma: There is minimal microangiopathic change. There is no hemorrhage, mass effect, or e vidence of acute territorial ischemia by CT criteria. [place]-white matter differentiation is preserved. No extra-axial fluid collection is seen. Ventricles, sulci, cisterns: Prominent secondary to involutional change. Intracranial vasculature: There is atherosclerotic calcification of the cavernous carotid arteries. Calvarium: Unremarkable. Sinuses and mastoids: The visualized paranasal sinuses are clear. The mastoid air cells are well pneu matized. Orbits: The bony orbits are grossly intact. There are bilateral ocular lens implants. IMPRESSION: There is no hemorrhage, mass effect, or evidence of acute territorial ischemia by CT marlys avila. ACT 112: Negative or not required by law. Electronically signed by: Quang Meza M.D. 04/07/2021 2:51 PM
[2021-04-07] MEDS: AMITRIPTYLINE HCL 10 MG TAB PO SCH (20:21)
[2021-04-07] MEDS: ASPIRIN 81 MG ECTAB PO SCH (20:22)
[2021-04-07] MEDS: PRAVASTATIN SOD 20 MG TAB PO SCH (20:23)
[2021-04-07] MEDS: cloNIDine HCL 0.1 MG TAB PO SCH (20:27)
[2021-04-08] MEDS: traMADol HCL 50 MG TABLET PO PRN (03:54)
[2021-04-08 06:12] LABS: Hematocrit (blood only) 39.3 % (37-47); Hemoglobin 12.6 g/dL (12.0-16.0); Mean Corpuscular Hemoglobin 28.9 pg (25-34); Mean Corpuscular Hgb Conc 32.1 g/dL (32-36); Mean Corpuscular Volume 90.1 fL (80-100); Mean Platelet Volume 9.6 fL (7.4-10.4); Platelet Count 183 K/uL (130-400); RDW Coefficient of Variation 13.9 % (11.5-14.5); RDW Standard Deviation 45.9 fL (36.4-46.3); Red Blood Count 4.36 M/uL (4.2-5.4); White Blood Count 7.73 K/uL (4.8-10.8)
[2021-04-08 06:49] LABS: BUN Creatinine Ratio 20.6 (10-20); Calcium 9.2 mg/dl (8.5-10.1); Creatinine Clr Calc Pharmacy 64.4 ml/min; Est GFR (African American) 82.9 ml/min; Est GFR (Non-African American) 71.5 ml/min; Magnesium 2.3 mg/dl (1.8-2.4); Phosphorus 3.5 mg/dl (2.5-4.9); Potassium 4.1 mmol/L (3.5-5.1)
[2021-04-08] MEDS: METOPROLOL TARTRATE 25 MG TAB PO SCH (08:54)
[2021-04-08] MEDS: APIXABAN 5 MG TABLET PO SCH (08:54)
[2021-04-08] MEDS: CEROVITE ADV FORMULA TAB PO SCH (08:54)
[2021-04-08] MEDS: hydroCHLOROthiazide 25 MG TAB PO SCH (08:55)
[2021-04-08] MEDS: lisinopril 10 MG TAB PO SCH (08:55)
[2021-04-08] MEDS: FAMOTIDINE 40 MG TABLET PO SCH (08:55)
--- NOTE | 2021-04-08 09:22 | Hospitalist Progress Note ---
Date of Service April 08, 2021 Assessment & Plan (1) Atrial fibrillation with rapid ventricular response: Plan: New onset AF currently NSR Suboptimal BP control Anxiety contributory Cardiology consulted Coreg switched to metoprolol and clonidine dose decreased Patient continues to be in sinus rhythm however BP labile (04/07) Started on Eliquis 5 mg twice daily Cont. lisinopril and restart home HCTZ (25 mg daily), cont. to closely monitor Lisinopril increased to 10 mg daily Hydralazine 25 prn TTE - EF 65 to 70%, diffuse mild concentric LVH. Asymmetric LV hypertrophy inv olving the basal septum. Maximal septal thickness 1.5 cm. LA is moderately dilated. There is mild mitral regurg. Grade 1 diastolic function. 04/08 -blood pressure improved, patient feels much better, she is eager for discharge Had some posterior headache on her right side yesterday, CT scan negative, now headache much improved Anxiolytic as needed Hyperlipidemia on statin Rx PVD as per records DVT prophylaxis: was on IV heparin - now on Eliquis Full code Patient's daughter - Ms. Torrie Rodriguez, contact #[phone]. Admission and Anticipated Discharge Date Admission Date: April 06, 2021 Subjective Patient seen in follow-up of Spenser ramirez,labile BP Denies any shortness of breath, chest pain, also denies any dizziness or lightheadedness Patient had headache yesterday, says that is now much better In addition blood pressure much improved as well, she is inquiring about going home Review of Systems Review of Systems: All systems reviewed & are unremarkable except as noted in Subjective Physical Exam Physical Exam: GENERAL: obese F, in NAD HEENT: NC/AT, EOMI, PERRL NECK : Supple, short neck, no tenderness CHEST : CTA, no tenderness HEART : RRR, no obvious murmurs ABDOMEN: soft, + bowel sounds, some distention, nontender EXTREMITIES : Minimal LE swelling, no LE tenderness, moves extremities SKIN: Normal color, warm NEUROLOGIC : Coherent, no facial asymmetry, speech fluent, moves extremities Results & Data Results & Data ([facility]) Vital Signs (Past 12 Hours) Vital Signs Temp Pulse Pulse Resp BP BP Pulse Ox 04/08/21 08:21 37.0 C 65 18 129/78 94 04/08/21 04:22 36.4 C L 55 L 18 139/78 93 04/08/21 00:15 59 L 04/07/21 23:32 36.7 C 61 18 127/69 95 Laboratory Results 04/08/21 04/08/21 Range/Units 05:46 05:46 WBC 7.73 (4.8-10.8) K/uL RBC 4.36 (4.2-5.4) M/uL Hgb 12.6 (12.0-16.0) g/dL Hct 39.3 (37-47) % MCV 90.1 (80-100) fL MCH 28.9 (25-34) pg MCHC 32.1 (32-36) g/dL RDW Std Deviation 45.9 (36.4-46.3) fL RDW Coeff of Leo 13.9 (11.5-14.5) % Plt Count 183 (130-400) K/uL MPV 9.6 (7.4-10.4) fL Sodium 141 (136-145) mmol/L Potassium 4.1 D (3.5-5.1) mmol/L Chloride 108 H (98-107) mmol/L Carbon Dioxide 30 (21-32) mmol/L Anion Gap 3.0 (3-11) BUN 17 (7-18) mg/dl Creatinine 0.81 (0.6-1.2) mg/dl Est Cr Clr Drug Dosing 64.4 ml/min Est GFR ( Amer) 82.9 ml/min Est GFR (Non-Af Amer) 71.5 ml/min BUN/Creatinine Ratio 20.6 H (10-20) Glucose 101 H (70-99) mg/dl Calcium 9.2 (8.5-10.1) mg/dl Phosphorus 3.5 (2.5-4.9) mg/dl Magnesium 2.3 (1.8-2.4) mg/dl Medications Administered Current Inpatient Medications Acetaminophen (Acetaminophen 325 Mg Tab) 650 mg PO Q4H PRN PRN Reason: Pain or Fever Stop: 05/05/21 01:49 Last Admin: 04/07/21 20:21 Dose: 650 mg Documented by: Amitriptyline HCl (Amitriptyline Hcl 10 Mg Tab) 10 mg PO HS MERVAT Stop: 05/05/21 20:59 Last Admin: 04/07/21 20:21 Dose: 10 mg Documented by: Apixaban (Apixaban 5 Mg Tablet) 5 mg PO BID [facility] Stop: 05/06/21 11:44 Last Admin: 04/08/21 08:54 Dose: 5 mg Documented by: Aspirin (Aspirin 81 Mg Ectab) 81 mg PO [facility] Stop: 05/05/21 20:59 Last Admin: 04/07/21 20:22 Dose: 81 mg Documented by: Clonidine HCl (Clonidine Hcl 0.1 Mg Tab) 0.1 mg PO [facility] Stop: 05/05/21 20:59 Last Admin: 04/07/21 20:27 Dose: 0.1 mg Documented by: Famotidine (Famotidine 40 Mg Tablet) 40 mg PO DAILY [facility] Stop: 05/05/21 08:59 Last Admin: 04/08/21 08:55 Dose: 40 mg Documented by: Hydralazine HCl (Hydralazine Hcl 25 Mg Tab) 25 mg PO Q6H PRN PRN Reason: sbp > 170 Stop: 05/06/21 15:29 Last Admin: 04/07/21 12:14 Dose: 25 mg Documented by: Hydrochlorothiazide (Hydrochlorothiazide 25 Mg Tab) [facility] [place] Stop: 05/06/21 15:44 Last Admin: 04/08/21 08:55 Dose: 25 mg Documented by: Promethazine HCl 12.5 mg/ (Sodium Chloride) 50.5 mls @ 202 mls/hr IV Q6H PRN PRN Reason: Nausea And Vomiting Stop: 05/05/21 01:49 Last Infusion: 04/05/21 03:34 Dose: Infused Documented by: Lorazepam (Ativan) 0.25 mg in 0.5 mls @ 0.5 mls/min IV Q4H PRN PRN Reason: Anxiety Stop: 05/05/21 01:49 Lisinopril (Lisinopril 10 Mg Tab) 10 mg PO [facility] Stop: 05/07/21 08:59 Last Admin: 04/08/21 08:55 Dose: 10 mg Documented by: Lorazepam (Lorazepam 0.5 Mg Tab) 0.5 mg PO Q6H PRN PRN Reason: Anxiety Stop: 05/07/21 12:32 Last Admin: 04/07/21 13:26 Dose: 0.5 mg Documented by: Metoprolol Tartrate (Metoprolol Tartrate 25 Mg Tab) 25 mg PO BID MERVAT Stop: 05/05/21 20:59 Last Admin: 04/08/21 08:54 Dose: 25 mg Documented by: Morphine Sulfate (Morphine Sulfate 4 Mg/Ml 1 Ml Carp\Vial) 4 mg IV Q4H PRN PRN Reason: Pain Stop: 04/19/21 01:49 Multivitamins/Minerals (Cerovite Adv Formula Tab) 1 tab PO DAILY MERVAT Stop: 05/05/21 08:59 Last Admin: 04/08/21 08:54 Dose: 1 tab Documented by: Nitroglycerin (Nitroglycerin Sl 0.4 Mg/Tab Tab) 0.4 mg SL UD PRN PRN Reason: Chest Pain Stop: 05/05/21 01:49 Pravastatin Sodium (Pravastatin Sod 20 Mg Tab) 20 mg PO HS MERVAT Stop: 05/05/21 20:59 Last Admin: 04/07/21 20:23 Dose: 20 mg Documented by: Tramadol HCl (Tramadol Hcl 50 Mg Tablet) 25 - 50 mg PO Q4H PRN PRN Reason: Pain Stop: 05/05/21 01:49 Last Admin: 04/08/21 03:54 Dose: 50 mg Documented by:
--- NOTE | 2021-04-08 11:58 | Discharge Summary ---
Date of Service April 08, 2021 Admission HPI Per Admitting Provider History obtained from patient and records. Medical history significant for hypertension, hyperlipidemia, PVD as per records, IBS. Last confinement 2012 for kidney stone status post stent placement. Patient has had intermittent chest tightness episodes (1-2 episodes weekly) for about 3 years now. Outpatient stress test from 2018 was negative for inducible ischemia. 2 weeks ago, patient noted palpitations, BP fluctuations at home. Home Coreg dose adjusted on 2 occasions as per patient. The last few days, patient noted more frequent palpitations along with chest tightness going to both shoulder blades, achy headache and abdominal pain with diarrhea. No known recent sick contacts although patient admits to attending the [facility]. Always anxious as per patient. Patient noted to be in rapid A. fib, cardiac rate 130s upon arrival at the ER. No prior episodes as per patient. Patient given aspirin and Lopressor. Subsequent NSR conversion. Patient currently more comfortable. 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 Admission Exam Per Admitting Provider GENERAL: Comfortable, slightly anxious, pleasant, obese, no respiratory distress SKIN: Normal color, warm HEENT: [place] palpebral conjunctivae, no ptosis, moist buccal mucosa NECK : Supple, short neck, no tenderness CHEST : CTA, no tenderness HEART : Bradycardic, no obvious murmurs ABDOMEN: Some distention, nontender EXTREMITIES : Minimal LE swelling, no LE tenderness, no other conspicuous deformities noted NEUROLOGIC : Coherent, no facial asymmetry, no other gross focality Principal Diagnosis Atrial fibrillation with rapid ventricular response Chest pain Hypertension Headache Discharge Exam GENERAL: obese F, in NAD HEENT: NC/AT, EOMI, PERRL NECK : Supple, short neck, no tenderness CHEST : CTA, no tenderness HEART : RRR, no obvious murmurs ABDOMEN: soft, + bowel sounds, some distention, nontender EXTREMITIES : Minimal LE swelling, no LE tenderness, moves extremities SKIN: Normal color, warm NEUROLOGIC : Coherent, no facial asymmetry, speech fluent, moves extremities Discharge Data Allergies Allergy/AdvReac Type Severity Reaction Status Date / Time capsaicin Allergy Intermediate elevated Verified 04/04/21 21:00 liver enzymes diclofenac Allergy Intermediate elevated Verified 04/04/21 21:00 liver enzymes NSAIDS (Non-Steroidal Allergy Intermediate ELEVATED Verified 04/04/21 21:00 Anti-Inflamma LIVER ENZYMES IN THE PAST Consultations 04/04/21 21:02 ED Decision to Admit Stat 04/05/21 01:50 Consult Cardiology Routine Ordered Studies 04/04/21 21:55 CT angio abdomen pelvis w con Urgent IMPRESSION: 1. Normal caliber abdominal aorta. No dissection. Moderate atherosclerotic plaque within the abdominal aorta. 2. No acute process within the abdomen or pelvis. 3. Numerous hepatic cysts. 4. No bowel obstruction. No bowel wall thickening. Normal appendix. 5. 4 mm left renal calculus. CT angio chest dissec wo/w con Urgent IMPRESSION: 1. Normal caliber thoracic aorta without aneurysmal dilatation or dissection. Mild atherosclerotic involvement. 2. No evidence of pulmonary embolus. 3. Interval prominence of multiple small thyroid nodules. Please correlate above-mentioned findings with prior history of thyroid disease. Further evaluation with thyroid ultrasound might be considered. 4. No infiltrates or consolidative lesions are seen. Few stable pulmonary nodules since prior study in 2018; stability over 3 years is reassuring. 5. Multiple hypoattenuating/cystic lesions within liver, grossly unchanged since prior study; incompletely evaluated on current nondedicated exam. 6. The rest of findings as above. CT angio neck with con Urgent IMPRESSION: 1. No stenosis or dissection within the major vessels of the neck. 2. Mild atherosclerotic plaque within the right carotid bifurcation. CT head/brain wo con Urgent IMPRESSION: No acute intracranial findings. 04/07/21 13:44 CT head/brain wo con Urgent IMPRESSION: There is no hemorrhage, mass effect, or evidence of acute territorial ischemia by CT criteria. Hospital Course (1) Atrial fibrillation with rapid ventricular response: New onset AF currently NSR Suboptimal BP control Anxiety contributory Cardiology consulted Coreg switched to metoprolol and clonidine dose decreased Patient continues to be in sinus rhythm however BP labile (04/07) Started on Eliquis 5 mg twice daily Cont. lisinopril and restart home HCTZ (25 mg daily), cont. to closely monitor Lisinopril increased to 10 mg daily Hydralazine 25 prn TTE - EF 65 to 70%, diffuse mild concentric LVH. Asymmetric LV hypertrophy involving the basal septum. Maximal septal thickness 1.5 cm. LA is moderately dilated. There is mild mitral regurg. Grade 1 diastolic function. 04/08 -blood pressure improved, patient feels much better, she is eager for discharge Had some posterior headache on her right side yesterday, CT scan negative, now headache much improved Patient is to follow-up with PCP and cardiology Anxiolytic as needed Hyperlipidemia on statin Rx PVD as per records Incidental finding of multiple thyroid nodules Interval prominence of multiple small thyroid nodules. Please correlate above- mentioned findings with prior history of thyroid disease. Further evaluation with thyroid ultrasound might be considered. Follow up as outpt DVT prophylaxis: was on IV heparin - now on Eliquis Full code Patient's daughter - Ms. Torrie Rodriguez, contact #[phone]. Total Time Total Time Spent Total Time Spent (In Minutes): 35 Discharge Plan Discharge Items Patient Disposition: Home - Self-Care Reason For Visit: PAF, CP Discharge Diagnosis: Atrial fibrillation with rapid ventricular response Chest pain Hypertension Headache Condition on Discharge: Fair Activity: Per Instructions section Non-emergency contact: Primary Care Provider and Foundry Technician Call non-emergency contact if: you have any medication questions Follow-up/Referrals: Casie Finn DO [Primary Care Provider] - (Date & Time 04/12/2021 11:10 AM Provider Casie Finn DO Department [facility] ) Diet: Heart Healthy and Low Sodium (2gm) Addtl Attending Provider Instructions: Follow up with your primary care doctor, and riveter pneumatic. The appointment with your primary care doctor was scheduled for you for April 12. You will be contacted about your appointment with cardiology. You were started on new medication, metoprolol, take it as prescribed, and stop taking carvedilol. You were also started on blood thinner, Eliquis, 5 mg twice a day. Discount coupon will be provided for you on discharge. Discuss further with your healthcare providers in case this medication is not affordable for you. Lisinopril was increased to 10 mg daily. Decrease your clonidine to 0.1 (instead of 0.2). Monitor blood pressure at home if you are able to, and record these numbers (you should take your blood pressure about 2 hours after you take your morning medications). Provide your health care providers with these numbers so your blood pressure medications can be further adjusted. It is also recommended that you restrict your sodium (salt) intake to 1.5 g daily. For your headache, take Tylenol, up to 3,000 mg a day. For more severe headache you can take tramadol, as prescribed. If the headache is not resolving, or you have some other symptoms such as change in vision, slurred speech, weakness or any other concerning symptoms, immediately contact healthcare provider or presents to the Emergency Room for further evaluation. Pending Studies at Discharge: No Stand-Alone Forms: [facility] [employer], Smoking Cessation Medications and DC Order Prescriptions: New Eliquis 5 mg tablet 5 mg PO BID Qty: 60 RF: 0 clonidine HCl 0.1 mg Tablet 0.1 mg PO HS Qty: 14 RF: 0 lisinopril 10 mg Tablet 10 mg PO QAM Qty: 30 RF: 0 metoprolol tartrate 25 mg Tablet 25 mg PO BID Qty: 60 RF: 0 tramadol 50 mg Tablet 25 mg PO Q6H PRN (Reason: pain) Qty: 3 RF: 0 Continued potassium chloride 10 mEq Tablet Extended Release 10 meq PO QAM RF: 0 Juice Plus 2 cap PO BID RF: 0 aspirin 81 mg Tablet,Delayed Release (Dr/Ec) 81 mg PO HS RF: 0 carvedilol 6.25 mg tablet 6.25 mg PO BID RF: 0 amitriptyline 10 mg Tablet 10 mg PO HS RF: 0 pravastatin 20 mg Tablet 20 mg PO HS RF: 0 hydrochlorothiazide 25 mg Tablet 25 mg PO QAM RF: 0 famotidine 40 mg Tablet 40 mg PO DAILY RF: 0 acetaminophen [Tylenol Ex Str Arthritis Pain] 500 mg Tablet 1,000 mg PO Q6H PRN (Reason: Pain) RF: 0 calcium carbonate [Calcium 500] 500 mg calcium (1,250 mg) Tablet 500 mg PO DAILY RF: 0 ascorbic acid (vitamin C) [Vitamin C] 500 mg Tablet 500 mg PO BID RF: 0 multivitamin with minerals Tablet 1 tab PO DAILY RF: 0 polyethylene glycol 3350 [Miralax] 17 gram/dose Powder 17 g PO DAILY PRN (Reason: Constipation) RF: 0 Changed clonidine HCl 0.1 mg Tablet 0.1 mg PO HS Qty: 0 RF: 0 Discharge Orders: Discharge Order (Routine); Ordered 04/08/21 Ordered By: Navid Conley Admission Data Admit Date/Time: 04/06/21 15:54 Attending Provider: Navid Conley Admit Provider: Chip Lindo Primary Care Provider: Casie Finn Other Providers: Chip Lindo ; Ang Finn
== END 2021-04-08 13:00 | disposition home or self-care (01) | DRG 310 ==
LOC: 2S 19:09 → ED 19:09 → 2S 04-05 01:46 → 2N 04-06 18:32

== ENCOUNTER 2021-04-16 00:11 | Inpatient (IN) ==
--- NOTE | 2021-04-16 00:38 | Emergency Department Note ---
Impression & Plan Non-ST elevation OK (NSTEMI) ED Provider Note Name: JACKIE RAY Age: 75 Sex: F Arrives Via: Walk-In Informant: Patient, ED Provider: Parrish Hill MD Chief Complaint: Chest pain Impression: NSTEMI Medical Decision Makin yr old female with hospitalization last week for Afib who has been on Eliquis in addition to her other medication for Hypertension, anxiety, Afib. She arrives following episodes of substernal chest pressure in addition to her ongoing issues with bilateral upper back pain. She notes pain already improving and feeling OK on my evaluation. Back pain has already been heavily investigated, including CTA just last week which I do not feel requires repeating at this time. EKG is currently in NSR without ischemia and is similar to previous ekgs. She was given ASA 324mg PO for cardiac protection. CXR OK without change nor widening mediastinum. She was noted to have mildly elevated Trop, which is new for patient. Given symptoms and elevation suspect this is NSTEMI. She did take Eliquis this evening thus will defer heparin/anticoagulation to hospitalist. Patient stable, comfortable and without discomfort at this time. Prior Medical Record and Triage/Nursing Notes reviewed by Me Additional history obtained from chart Differentials:Cardiac ischemia, aortic dissection, pulmonary embolism, pneumothorax, pneumonia, pericarditis, myocarditis, esophageal rupture, GERD, ch olecystitis, pancreatitis, musculoskeletal, as well as other pathologies. Vital Signs: reviewed and remarkable for no significant abnormalities Interventions: saline lock, asa 324mg po Labs:Reviewed and remarkable for elevation trop Imaging:X ray results are stated below per my interpretation: Chest: 1 view: No infiltrate, no effusion, normal cardiac border. EKG:Per My Interpretation: Indication Chest Pain: NSR 83 bpm, qtc 509. No Ectopy. No Ischemia. Compared to EKG 04/06/21, no significant changes. Cardiac/Tele Monitoring: Cardiac Monitoring: An Order was placed for continuous cardiac monitoring. The monitor shows a rate of 80 with a normal sinus rhythm. Consults:Dr Lindo Hospitalist Plan: Disposition:Hospitalization Condition: Good History of Present Illness:75 yr old female arrives for evaluation of chest pain. Patient with recent hospitalization for afib management. She notes that she has been having ongoing back, chest and neck pains since time of admission. Today she was actually feeling a bit better and was cleaning up the floor when symptoms returned. She notes anterior chest pressure which is more severe than previous episodes. She notes back pain between shoulder blades that goes in to back of her neck that has also been ongoing for quite some time. She took tramadol at home and notes symptoms have essentially resolved. Denies any current pain. No shob, nause,a vomiting, syncope, headache, vision changes, neuro deficits, abdominal pain, urinary/bowel changes, leg swelling, rashes, fevers, chills, nor other symptoms. She states she has been taking her medications. Her blood pressure has been running on low side so general studies program chair had her stop her Lisinopril and she is currently taking her eliquis and metoprolol. Denies falls, trauma, injuries. Nothing seemed to make pain better nor worse. ROS: See above HPI for pertinent positives & negatives. A total of 10 systems reviewed and were otherwise negative. Past Medical History:See Below Past Surgical History:See Below Family History:See Below Social History:See Below Home Medications:See Below Allergies:See Below Vitals:Blood Pressure: 118/76, Pulse 83, RR 18, T 36.7C, O2 95% on RA Physical Exam: GENERAL: Patient is anxious appearing and in minimal distress. EYES: No scleral icterus, unremarkable pupils. ENT: Mucous membranes moist, no nasal congestion. NECK: No masses appreciated, nomeningismus, trachea is midline. RESPIRATORY: No dyspnea. Clear to auscultation and equal bilaterally. No wheeze, no rhonchi. CARDIOVASCULAR: Regular rate and rhythm.No murmurs, rubs, gallops appreciated. GASTROINTESTINAL: Abdomen soft, non-tender, no peritonitis.Bowel sounds positive.No masses appreciated. BACK: No midline tenderness, no CVA tenderness EXTREMITIES: Normal motion all extremities, no cyanosis, no edema. NEUROLOGIC: Alert and oriented, no acute motor or sensory deficits, no focal weakness, cranial nerves grossly intact. SKIN: No rash, no jaundice, no diaphoresis. PSYCH: Appropriate GCS: 15 ED Course: Times/Reassessments: Stable, feeling well agree to hospitalization Parrish Hill MD Past Med/Surg History Medical History (Updated 04/17/21 @ 09:13 by Parrish Hill MD) Anemia HX Anxiety Depression Hyperlipidemia Hypertension Irritable bowel syndrome Kidney stones Migraine HX OF Osteoarthritis Surgical History History of cataract surgery LEFT History of cholecystectomy History of colonoscopy History of esophagogastroduodenoscopy (EGD) History of hysterectomy History of lithotripsy History of tooth extraction History of total knee replacement RT/LEFT Family History Mother Family history of diabetes mellitus Social History Smoking Status: Never smoker Second Hand Exposure: No; Hx Alcohol Use: No Hx Substance Use: No Preferred Language: Setswana Communication Ability: Effective 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 Beliefs That Will Affect Care: None Current Living Situation: Spouse Other Information That Helps Us Care for You: No Feels Safe at Home: Yes Safety Concerns: Feels Safe At This Time Assistive Devices: None Allergies Allergies Allergy/AdvReac Type Severity Reaction Status Date / Time capsaicin Allergy Intermediate elevated Verified 04/16/21 00:32 liver enzymes diclofenac Allergy Intermediate elevated Verified 04/16/21 00:32 liver enzymes NSAIDS (Non-Steroidal Allergy Intermediate ELEVATED Verified 04/16/21 00:32 Anti-Inflamma LIVER ENZYMES IN THE PAST Home Meds Home Medications Medication Instructions Recorded Confirmed amitriptyline 10 mg tablet 10 mg PO HS 11/29/18 04/16/21 hydrochlorothiazide 25 mg tablet 25 mg PO QAM 11/29/18 04/16/21 pravastatin 20 mg tablet 20 mg PO HS 11/29/18 04/16/21 Juice Plus 2 cap PO BID 02/10/19 04/16/21 aspirin 81 mg tablet,delayed 81 mg PO HS 02/10/19 04/16/21 release potassium chloride 10 mEq 10 meq PO QAM 02/10/19 04/16/21 tablet,extended release acetaminophen 500 mg tablet 1,000 mg PO Q6H PRN 04/04/21 04/16/21 ascorbic acid (vitamin C) 500 mg 500 mg PO BID 04/04/21 04/16/21 tablet (Vitamin C) calcium carbonate 500 mg calcium 500 mg PO DAILY 04/04/21 04/16/21 (1,250 mg) tablet (Calcium 500) famotidine 40 mg tablet 40 mg PO DAILY 04/04/21 04/16/21 multivitamin with minerals 1 tab PO DAILY 04/04/21 04/16/21 polyethylene glycol 3350 17 17 g PO DAILY PRN 04/04/21 04/16/21 gram/dose oral powder (Miralax) Previous Rx's Medication Instructions Recorded apixaban 5 mg tablet (Eliquis) 5 mg PO BID #60 tab 04/05/21 clonidine HCl 0.1 mg tablet 0.1 mg PO HS #0 tab 04/08/21 clonidine HCl 0.1 mg tablet 0.1 mg PO HS #14 tab 04/08/21 metoprolol tartrate 25 mg tablet 25 mg PO BID #60 tab 04/08/21 tramadol 50 mg tablet 25 mg PO Q6H PRN #3 tab 04/08/21 Results & Data (ED) Vital Signs Vital Signs - 24 hr 04/16/21 00:22 Temperature 36.7 C Temperature Source Temporal Artery Scan Pulse Rate 83 Respiratory Rate 18 Respiratory Effort / Characteristics Non-Labored Spontaneous Respiratory Depth Normal Respiratory Pattern Regular Blood Pressure 118/76 Blood Pressure Mean 90 Blood Pressure Position Sitting Pulse Oximetry 95 Oxygen Delivery Method Room Air Sepsis Recent Fever Within 48 Hours No Sepsis New/Unexplained Change in Mental Status No Sepsis Action Taken by Nursing No Action Required Laboratory Data Result diagrams: 04/17/21 02:35 04/17/21 02:35 Lab Results 04/16/21 04/16/21 04/16/21 Range/Units 00:49 00:49 00:49 WBC 10.67 (4.8-10.8) K/uL RBC 4.56 (4.2-5.4) M/uL Hgb 13.5 (12.0-16.0) g/dL Hct 40.3 (37-47) % MCV 88.4 (80-100) fL MCH 29.6 (25-34) pg MCHC 33.5 (32-36) g/dL RDW Std Deviation 43.7 (36.4-46.3) fL RDW Coeff of Leo 13.5 (11.5-14.5) % Plt Count 178 (130-400) K/uL MPV 10.5 H (7.4-10.4) fL Immature Gran % (Auto) 0.1 % Neut % (Auto) 54.2 % Lymph % (Auto) 33.6 % Dawson % (Auto) 10.1 % Eos % (Auto) 1.8 % Baso % (Auto) 0.2 % Neut # (Auto) 5.79 (1.4-6.5) K/uL Lymph # (Auto) 3.58 H (1.2-3.4) K/uL Dawson # (Auto) 1.08 H (0.11-0.59) K/uL Eos # (Auto) 0.19 (0-0.5) K/uL Baso # (Auto) 0.02 (0-0.2) K/uL Immature Gran # (Auto) 0.01 (0.00-0.02) K/uL PT 10.5 (9.0-12.0) Seconds INR 1.0 (0.9-1.1) APTT 28.5 (21.0-31.0) Seconds PTT Ratio 1.1 Sodium 139 (136-145) mmol/L Potassium 3.7 (3.5-5.1) mmol/L Chloride 105 (98-107) mmol/L Carbon Dioxide 28 (21-32) mmol/L Anion Gap 6.0 (3-11) BUN 29 H (7-18) mg/dl Creatinine 0.93 (0.6-1.2) mg/dl Est Cr Clr Drug Dosing 55.9 ml/min Est GFR ( Amer) 70.2 ml/min Est GFR (Non-Af Amer) 60.5 ml/min BUN/Creatinine Ratio 30.7 H (10-20) Glucose 134 H (70-99) mg/dl Calcium 9.8 (8.5-10.1) mg/dl Magnesium 2.0 (1.8-2.4) mg/dl Troponin I 0.076 H* (0-0.045) ng/ml Lyme Disease IgG Ab (Negative) Lyme Disease IgM Ab (Negative) COVID-19 Eval Order SARS-CoV-2 (PCR) (Negative) 04/16/21 04/16/21 04/16/21 Range/Units 02:30 02:30 03:25 WBC (4.8-10.8) K/uL RBC (4.2-5.4) M/uL Hgb (12.0-16.0) g/dL Hct (37-47) % MCV (80-100) fL MCH (25-34) pg MCHC (32-36) g/dL RDW Std Deviation (36.4-46.3) fL RDW Coeff of Leo (11.5-14.5) % Plt Count (130-400) K/uL MPV (7.4-10.4) fL Immature Gran % (Auto) % Neut % (Auto) % Lymph % (Auto) % Dawson % (Auto) % Eos % (Auto) % Baso % (Auto) % Neut # (Auto) (1.4-6.5) K/uL Lymph # (Auto) (1.2-3.4) K/uL Dawson # (Auto) (0.11-0.59) K/uL Eos # (Auto) (0-0.5) K/uL Baso # (Auto) (0-0.2) K/uL Immature Gran # (Auto) (0.00-0.02) K/uL PT (9.0-12.0) Seconds INR (0.9-1.1) APTT (21.0-31.0) Seconds PTT Ratio Sodium (136-145) mmol/L Potassium (3.5-5.1) mmol/L Chloride (98-107) mmol/L Carbon Dioxide (21-32) mmol/L Anion Gap (3-11) BUN (7-18) mg/dl Creatinine (0.6-1.2) mg/dl Est Cr Clr Drug Dosing ml/min Est GFR ( Amer) ml/min Est GFR (Non-Af Amer) ml/min BUN/Creatinine Ratio (10-20) Glucose (70-99) mg/dl Calcium (8.5-10.1) mg/dl Magnesium (1.8-2.4) mg/dl Troponin I 0.152 H* (0-0.045) ng/ml Lyme Disease IgG Ab (Negative) Lyme Disease IgM Ab (Negative) COVID-19 Eval Order Covid19 at [facility] SARS-CoV-2 (PCR) NEGATIVE (Negative) 04/16/21 Range/Units 03:25 WBC (4.8-10.8) K/uL RBC (4.2-5.4) M/uL Hgb (12.0-16.0) g/dL Hct (37-47) % MCV (80-100) fL MCH (25-34) pg MCHC (32-36) g/dL RDW Std Deviation (36.4-46.3) fL RDW Coeff of Leo (11.5-14.5) % Plt Count (130-400) K/uL MPV (7.4-10.4) fL Immature Gran % (Auto) % Neut % (Auto) % Lymph % (Auto) % Dawson % (Auto) % Eos % (Auto) % Baso % (Auto) % Neut # (Auto) (1.4-6.5) K/uL Lymph # (Auto) (1.2-3.4) K/uL Dawson # (Auto) (0.11-0.59) K/uL Eos # (Auto) (0-0.5) K/uL Baso # (Auto) (0-0.2) K/uL Immature Gran # (Auto) (0.00-0.02) K/uL PT (9.0-12.0) Seconds INR (0.9-1.1) APTT (21.0-31.0) Seconds PTT Ratio Sodium (136-145) mmol/L Potassium (3.5-5.1) mmol/L Chloride (98-107) mmol/L Carbon Dioxide (21-32) mmol/L Anion Gap (3-11) BUN (7-18) mg/dl Creatinine (0.6-1.2) mg/dl Est Cr Clr Drug Dosing ml/min Est GFR ( Amer) ml/min Est GFR (Non-Af Amer) ml/min BUN/Creatinine Ratio (10-20) Glucose (70-99) mg/dl Calcium (8.5-10.1) mg/dl Magnesium (1.8-2.4) mg/dl Troponin I (0-0.045) ng/ml Lyme Disease IgG Ab Negative (Negative) Lyme Disease IgM Ab Negative (Negative) COVID-19 Eval Order SARS-CoV-2 (PCR) (Negative) Administered Medications Acetaminophen (Acetaminophen 325 Mg Tab) 650 mg PO Q4H PRN PRN Reason: Pain or Fever Stop: 05/16/21 06:20 Last Admin: 04/16/21 18:34 Dose: 650 mg Documented by: [id number] Amitriptyline HCl (Amitriptyline Hcl 10 Mg Tab) 10 mg PO HS MERVAT Stop: 05/16/21 20:59 Last Admin: 04/16/21 21:07 Dose: 10 mg Documented by: [id number] Aspirin (Aspirin 81 Mg Ectab) 81 mg PO HS [facility] Stop: 05/16/21 20:59 Last Admin: 04/16/21 21:07 Dose: 81 mg Documented by: [id number] Clonidine HCl (Clonidine Hcl 0.1 Mg Tab) 0.1 mg PO [facility] Stop: 05/16/21 20:59 Last Admin: 04/16/21 21:06 Dose: 0.1 mg Documented by: [id number] Famotidine (Famotidine 40 Mg Tablet) 40 mg PO DAILY [facility] Stop: 05/16/21 08:59 Last Admin: 04/17/21 08:03 Dose: 40 mg Documented by: [id number] Admin: 04/16/21 08:41 Dose: 40 mg Documented by: [id number] Metoprolol Tartrate (Metoprolol Tartrate 25 Mg Tab) 25 mg PO BID [facility] Stop: 05/16/21 08:59 Last Admin: 04/17/21 08:03 Dose: 25 mg Documented by: [id number] Admin: 04/16/21 21:06 Dose: 25 mg Documented by: [id number] Admin: 04/16/21 08:41 Dose: 25 mg Documented by: [id number] Multivitamins/Minerals (Cerovite Adv Formula Tab) 1 tab PO DAILY [facility] Stop: 05/16/21 08:59 Last Admin: 04/17/21 08:03 Dose: 1 tab Documented by: [id number] Admin: 04/16/21 08:45 Dose: 1 tab Documented by: [id number] Pravastatin Sodium (Pravastatin Sod 20 Mg Tab) 20 mg PO [facility] Stop: 05/16/21 20:59 Last Admin: 04/16/21 21:05 Dose: 20 mg Documented by: [id number] Discontinued Medications Aspirin (Aspirin Chew 324 Mg) 324 mg PO NOW STA Stop: 04/16/21 02:13 Last Admin: 04/16/21 02:26 Dose: 324 mg Documented by: [id number] Heparin Sodium/Dextrose (Heparin Iv Adult Wt-Based Standard *No* Bolus Protocol) 1 ea IV Q15M [facility]; Protocol Stop: 04/16/21 07:00 Last Admin: 04/16/21 06:46 Dose: Not Given Documented by: [id number] Heparin Sodium/Dextrose (Heparin 66098 Unit/500 Ml D5w) Confirm Administered Dose 25,000 units IV .STK-MED ONE Stop: 04/16/21 04:59 Last Admin: 04/16/21 05:04 Dose: 25,000 units Documented by: [id number] Cosigned by: [id number] Sodium Chloride (Nss 1000ml) 500 mls @ 999 mls/hr IV .Q31M ONE Stop: 04/16/21 02:18 Last Infusion: 04/16/21 03:00 Dose: 0 mls/hr Documented by: [id number] Admin: 04/16/21 02:27 Dose: 999 mls/hr Documented by: [id number] Heparin Sodium/Dextrose (Heparin Sodium/Dextrose) 25,000 units in 500 mls @ 18 mls/hr IV .Q24H [facility]; Protocol Stop: 05/16/21 04:59 Last Titration: 04/17/21 07:17 Dose: 900 units/hr, 18 mls/hr Documented by: [id number] Cosigned by: [id number] Admin: 04/17/21 04:32 Dose: 900 units/hr, 18 mls/hr Documented by: [id number] Cosigned by: [id number] Titration: 04/17/21 04:32 Dose: 0 units/hr, 0 mls/hr Documented by: [id number] Cosigned by: [id number] Titration: 04/17/21 03:28 Dose: 0 units/hr, 0 mls/hr Documented by: [id number] Cosigned by: [id number] Titration: 04/16/21 20:10 Dose: 1,100 units/hr, 22 mls/hr Documented by: [id number] Cosigned by: [id number] Titration: 04/16/21 19:12 Dose: 1,150 units/hr, 23 mls/hr Documented by: [id number] Cosigned by: [id number] Titration: 04/16/21 12:28 Dose: 1,150 units/hr, 23 mls/hr Documented by: [id number] Cosigned by: [id number] Titration: 04/16/21 07:17 Dose: 1,200 units/hr, 24 mls/hr Documented by: [id number] Cosigned by: [id number] Admin: 04/16/21 06:18 Dose: 1,200 units/hr, 24 mls/hr Documented by: [id number] Cosigned by: [id number] Potassium Chloride 40 meq/ (Sodium Chloride) 1,020 mls @ 60 mls/hr IV .Q17H ONE Stop: 04/16/21 23:29 Last Infusion: 04/17/21 01:24 Dose: 0 mls/hr Documented by: [id number] Admin: 04/16/21 08:41 Dose: 60 mls/hr Documented by: [id number] Potassium Chloride (Potassium Chloride Crtab 20 Meq Tabcr) 20 meq PO NOW STA Stop: 04/17/21 07:42 Last Admin: 04/17/21 07:52 Dose: 20 meq Documented by: [id number] Discharge Plan Visit Data Chief Complaint: Back Injury/Pain Stated Complaint: BACK PAIN, NECK PAIN, CHEST PAIN ED Provider: Parrish Hill Discharge Problem: Non-ST elevation OK (NSTEMI) Patient Disposition: Admitted As Inpatient Discharge Instructions Interventions: ED Discharge Assessment Last Done: 04/16/21 05:58
[2021-04-16 01:25] LABS: Basophils # (auto) 0.02 K/uL (0-0.2); Basophils % (auto) 0.2 %; Eosinophils # (auto) 0.19 K/uL (0-0.5); Eosinophils % (auto) 1.8 %; Hematocrit (blood only) 40.3 % (37-47); Hemoglobin 13.5 g/dL (12.0-16.0); Immature Granulocytes # (auto) 0.01 K/uL (0.00-0.02); Immature Granulocytes % (auto) 0.1 %; Lymphocytes # (auto) 3.58 K/uL (1.2-3.4); Lymphocytes % (auto) 33.6 %; Mean Corpuscular Hemoglobin 29.6 pg (25-34); Mean Corpuscular Hgb Conc 33.5 g/dL (32-36); Mean Corpuscular Volume 88.4 fL (80-100); Mean Platelet Volume 10.5 fL (7.4-10.4); Monocytes # (auto) 1.08 K/uL (0.11-0.59); Monocytes % (auto) 10.1 %; Neutrophils # (auto) 5.79 K/uL (1.4-6.5); Neutrophils % (auto) 54.2 %; Platelet Count 178 K/uL (130-400); RDW Coefficient of Variation 13.5 % (11.5-14.5); RDW Standard Deviation 43.7 fL (36.4-46.3); Red Blood Count 4.56 M/uL (4.2-5.4); White Blood Count 10.67 K/uL (4.8-10.8)
[2021-04-16 01:40] LABS: Partial Thromboplastin Ratio 1.1; Partial Thromboplastin Time 28.5 Seconds (21.0-31.0); Prothrombin Time 10.5 Seconds (9.0-12.0)
[2021-04-16 01:46] LABS: BUN Creatinine Ratio 30.7 (10-20); Calcium 9.8 mg/dl (8.5-10.1); Creatinine Clr Calc Pharmacy 55.9 ml/min; Est GFR (African American) 70.2 ml/min; Est GFR (Non-African American) 60.5 ml/min; Potassium 3.7 mmol/L (3.5-5.1)
[2021-04-16] MEDS ORDERED: SODIUM CHLORIDE 0.9% 1000ML 500 ML IV ONE (01:48)
[2021-04-16 02:03] LABS: Troponin I 0.076 ng/ml (0-0.045)
[2021-04-16] MEDS ORDERED: ASPIRIN CHEW 324 MG PO STA (02:12)
--- NOTE | 2021-04-16 04:13 | History & Physical Report ---
Date of Service April 16, 2021 Assessment & Plan (1) NSTEMI (non-ST elevated myocardial infarction): Plan: Longstanding, intermittent episodes of chest pain with radiation to the back and neck Back pain with musculoskeletal component given reproducibility hx PVD as per records PAF, patient NSR, on Eliquis HTN, stable since discharge from last confinement. Recent hypotensive episode at home prompted discontinuation of home lisinopril. hyperlipidemia on statin Rx Thyroid nodules, incidental finding on imaging from recent confinement PCU continue patient's aspirin, beta-donya, statin medications; nitro as needed Initiate IV Heparin Hold Eliquis while on IV heparin in anticipation of procedure TTE, Cardiology consult RE NSTEMI CT thoracic spine for upper back pain Outpatient work-up for thyroid nodules DVT prophylaxis per Lovenox subcu Full code Patient requests for family to be updated of plan of care. Mr. Lakhwinder Rodriguez (), contact #[phone]. Ms. Torrie Rodriguez (daughter), contact #[phone]. Text document was generated using LoH[employer] voice recognition software. It may contain grammatical or spelling errors. Kindly contact undersigned for clarification of any documentation item in question. History of Present Illness Chief Complaint: Chest pain going to the back and neck Primary Care Provider: Casie Finn DO History obtained from patient, family, and records. Medical history significant for PAF on Eliquis, hypertension, hyperlipidemia, PVD as per records, IBS, thyroid nodules. Last confinement April 06-2020 for chest tightness episodes with back radiation for about 3 years and new onset A. fib. New onset A. fib attributed to suboptimal BP control. Patient Coreg switched to metoprolol and clonidine dose decreased. Patient discharged on lisinopril as well. Eliquis started for anticoagulation for A. fib. Intermittent achy substernal chest pain episodes at home going to the back between the shoulder blades and neck with some shortness of breath even with good blood pressure control at home after confinement. Not related to exertion. No recollection of recent trauma. No unusual cough symptoms. SBP 80s yesterday with dizziness. Outpatient provider recommended stopping lisinopril as per patient. Patient brought to the ER by for further evaluation. 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 Allergies Allergy/AdvReac Type Severity Reaction Status Date / Time capsaicin Allergy Intermediate elevated Verified 04/16/21 00:32 liver enzymes diclofenac Allergy Intermediate elevated Verified 04/16/21 00:32 liver enzymes NSAIDS (Non-Steroidal Allergy Intermediate ELEVATED Verified 04/16/21 00:32 Anti-Inflamma LIVER ENZYMES IN THE PAST Home Medications Medication Instructions Recorded Confirmed Type amitriptyline 10 mg tablet 10 mg PO HS 11/29/18 04/16/21 History hydrochlorothiazide 25 mg tablet 25 mg PO QAM 11/29/18 04/16/21 History pravastatin 20 mg tablet 20 mg PO HS 11/29/18 04/16/21 History Juice Plus 2 cap PO BID 02/10/19 04/16/21 History aspirin 81 mg tablet,delayed 81 mg PO HS 02/10/19 04/16/21 History release potassium chloride 10 mEq 10 meq PO QAM 02/10/19 04/16/21 History tablet,extended release acetaminophen 500 mg tablet 1,000 mg PO Q6H PRN 04/04/21 04/16/21 History ascorbic acid (vitamin C) 500 mg 500 mg PO BID 04/04/21 04/16/21 History tablet (Vitamin C) calcium carbonate 500 mg calcium 500 mg PO DAILY 04/04/21 04/16/21 History (1,250 mg) tablet (Calcium 500) famotidine 40 mg tablet 40 mg PO DAILY 04/04/21 04/16/21 History multivitamin with minerals 1 tab PO DAILY 04/04/21 04/16/21 History polyethylene glycol 3350 17 17 g PO DAILY PRN 04/04/21 04/16/21 History gram/dose oral powder (Miralax) apixaban 5 mg tablet (Eliquis) 5 mg PO BID #60 tab 04/05/21 04/16/21 Rx clonidine HCl 0.1 mg tablet 0.1 mg PO HS #0 tab 04/08/21 04/16/21 Rx clonidine HCl 0.1 mg tablet 0.1 mg PO HS #14 tab 04/08/21 04/16/21 Rx metoprolol tartrate 25 mg tablet 25 mg PO BID #60 tab 04/08/21 04/16/21 Rx tramadol 50 mg tablet 25 mg PO Q6H PRN #3 tab 04/08/21 04/16/21 Rx Past Med/Surg History Medical History (Updated 04/16/21 @ 09:02 by Justo Hammer DO) Anemia HX Anxiety Depression Hyperlipidemia Hypertension Irritable bowel syndrome Kidney stones Migraine HX OF Osteoarthritis Surgical History History of cataract surgery LEFT History of cholecystectomy History of colonoscopy History of esophagogastroduodenoscopy (EGD) History of hysterectomy History of lithotripsy History of tooth extraction History of total knee replacement RT/LEFT Family History Mother Family history of diabetes mellitus Social History Smoking Status: Never smoker Second Hand Exposure: No; Hx Alcohol Use: No Hx Substance Use: No Preferred Language: Ecuadorean Communication Ability: Effective 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 Beliefs That Will Affect Care: None Current Living Situation: Spouse Other Information That Helps Us Care for You: No Feels Safe at Home: Yes Safety Concerns: Feels Safe At This Time Assistive Devices: None Review of Systems Review of Systems: As per HPI, all 10 systems reviewed, all other ROS negative Physical Exam Physical Exam: GENERAL: Comfortable, slightly anxious, pleasant, obese, no respiratory distress SKIN: Normal color, warm HEENT: Nibbe palpebral conjunctivae, no ptosis, moist buccal mucosa NECK : Supple, short neck, no tenderness CHEST : CTA, no tenderness HEART : RRR, systolic murmur best heard over left sternal border ABDOMEN: Some distention, nontender BACK : Upper back tenderness EXTREMITIES : Minimal LE swelling, no LE tenderness, no other conspicuous deformities noted NEUROLOGIC : Coherent, no facial asymmetry, no other gross focality Results & Data Results & Data ([facility]) Vital Signs (Past 12 Hours) Vital Signs Temp Pulse Pulse Resp BP BP Pulse Ox 04/16/21 03:00 79 20 121/63 96 04/16/21 01:00 68 18 117/65 91 04/16/21 00:48 73 16 126/71 95 04/16/21 00:22 36.7 C 83 18 118/76 95 Laboratory Results Laboratory Results WBC 10.67 K/uL (4.8-10.8) 04/16/21 00:49 RBC 4.56 M/uL (4.2-5.4) 04/16/21 00:49 Hgb 13.5 g/dL (12.0-16.0) 04/16/21 00:49 Hct 40.3 % (37-47) 04/16/21 00:49 MCV 88.4 fL (80-100) 04/16/21 00:49 MCH 29.6 pg (25-34) 04/16/21 00:49 MCHC 33.5 g/dL (32-36) 04/16/21 00:49 RDW Std Deviation 43.7 fL (36.4-46.3) 04/16/21 00:49 RDW Coeff of Leo 13.5 % (11.5-14.5) 04/16/21 00:49 Plt Count 178 K/uL (130-400) 04/16/21 00:49 MPV 10.5 fL (7.4-10.4) H 04/16/21 00:49 Immature Gran % (Auto) 0.1 % 04/16/21 00:49 Neut % (Auto) 54.2 % 04/16/21 00:49 Lymph % (Auto) 33.6 % 04/16/21 00:49 Citrus % (Auto) 10.1 % 04/16/21 00:49 Eos % (Auto) 1.8 % 04/16/21 00:49 Baso % (Auto) 0.2 % 04/16/21 00:49 Neut # (Auto) 5.79 K/uL (1.4-6.5) 04/16/21 00:49 Lymph # (Auto) 3.58 K/uL (1.2-3.4) H 04/16/21 00:49 Citrus # (Auto) 1.08 K/uL (0.11-0.59) H 04/16/21 00:49 Eos # (Auto) 0.19 K/uL (0-0.5) 04/16/21 00:49 Baso # (Auto) 0.02 K/uL (0-0.2) 04/16/21 00:49 Immature Gran # (Auto) 0.01 K/uL (0.00-0.02) 04/16/21 00:49 PT 10.5 Seconds (9.0-12.0) 04/16/21 00:49 INR 1.0 (0.9-1.1) 04/16/21 00:49 APTT 28.5 Seconds (21.0-31.0) 04/16/21 00:49 PTT Ratio 1.1 04/16/21 00:49 Sodium 139 mmol/L (136-145) 04/16/21 00:49 Potassium 3.7 mmol/L (3.5-5.1) 04/16/21 00:49 Chloride 105 mmol/L (98-107) 04/16/21 00:49 Carbon Dioxide 28 mmol/L (21-32) 04/16/21 00:49 Anion Gap 6.0 (3-11) 04/16/21 00:49 BUN 29 mg/dl (7-18) H 04/16/21 00:49 Creatinine 0.93 mg/dl (0.6-1.2) 04/16/21 00:49 Est Cr Clr Drug Dosing 55.9 ml/min 04/16/21 00:49 Est GFR ( Amer) 70.2 ml/min 04/16/21 00:49 Est GFR (Non-Af Amer) 60.5 ml/min 04/16/21 00:49 BUN/Creatinine Ratio 30.7 (10-20) H 04/16/21 00:49 Glucose 134 mg/dl (70-99) H 04/16/21 00:49 Calcium 9.8 mg/dl (8.5-10.1) 04/16/21 00:49 Magnesium 2.0 mg/dl (1.8-2.4) 04/16/21 00:49 Troponin I 0.076 ng/ml (0-0.045) H* 04/16/21 00:49 COVID-19 Eval Order Covid19 at [facility] 04/16/21 02:30 SARS-CoV-2 (PCR) NEGATIVE (Negative) 04/16/21 02:30 Diagnostic Findings Chest x-ray as per my patient cardiomegaly EKG as per my interpretation : Rate 85, NSR, LAD, LAFB, LVH, no ischemia Code Status & VTE Plan VTE Prophylaxis Plan VTE Prophylaxis will be ordered: Yes
[2021-04-16 04:38] LABS: Lyme Ab IgG w/WB Rflx Negative (Negative); Lyme Ab IgM w/WB Rflx Negative (Negative)
[2021-04-16] MEDS ORDERED: Heparin IV Adult Wt-Based Standard *NO* Bolus Protocol IV SCH (04:39)
[2021-04-16] MEDS ORDERED: HEPARIN 25000 UNIT/500 ML D5W IV ONE (04:58)
[2021-04-16] MEDS: HEPARIN SODIUM/DEXTROSE 25,000 UNITS/500 ML BAG IV SCH (06:18)
[2021-04-16] MEDS ORDERED: PROMETHAZINE HCL 12.5 MG in SODIUM CHLORIDE 0.9% 50 ML IV PRN (06:21)
[2021-04-16] MEDS ORDERED: ACETAMINOPHEN 325 MG TAB PO PRN (06:21)
[2021-04-16] MEDS ORDERED: NITROGLYCERIN SL 0.4 MG/TAB TAB SL PRN (06:21)
[2021-04-16] MEDS ORDERED: LORazepam 0.25 MG/0.5 ML VIAL IV PRN (06:21)
[2021-04-16] MEDS ORDERED: POLYETHYLENE (MIRALAX) 17 GM PACK PO PRN (06:21)
[2021-04-16] MEDS ORDERED: MoRPHine SULFATE 4 MG/ML 1 ML CARP\\VIAL IV PRN (06:21)
[2021-04-16] MEDS ORDERED: traMADol HCL 50 MG TABLET PO PRN (06:21)
[2021-04-16] MEDS ORDERED: POTASSIUM CHLORIDE 40 MEQ in SODIUM CHLORIDE 0.9% 1000ML 1,000 ML IV ONE (06:30)
--- NOTE | 2021-04-16 07:52 | CT Scan Report ---
THORACIC SPINE CT CT DOSE: 1086.40 mGy.cm HISTORY: upper back pain TECHNIQUE: Multiaxial CT images of the thoracic spine were performed and reformatted in the sagittal and coronal plane without the use of contrast. A dose lowering technique was utilized adhering to th e principles of ALARA. COMPARISON: None. FINDINGS: No fractures. No subluxation. Paraspinal soft tissues are unremarkable. A 1 cm left thyroid nodule. This does not meet CT criteria for follow-up. Mild degenerative disc disease within the thor acic spine. No high-grade stenosis. IMPRESSION: No fractures within the thoracic spine. ACT 112: Negative or not required by law. Electronically signed by: Buster Cifuentes M.D. 04/16/2021 7:51 AM
[2021-04-16] MEDS: FAMOTIDINE 40 MG TABLET PO SCH (08:41)
[2021-04-16] MEDS: METOPROLOL TARTRATE 25 MG TAB PO SCH ×2 (08:41→21:06)
[2021-04-16] MEDS: CEROVITE ADV FORMULA TAB PO SCH (08:45)
--- NOTE | 2021-04-16 09:02 | Cardiology Consultation ---
Date of Consultation April 16, 2021 Assessment & Plan (1) Atypical chest pain: (2) PAF (paroxysmal atrial fibrillation): (3) Anxiety: (4) Hypotension: musculoskeletal pain, reproducible secondary to sleeping in a camper for [facility] troponin bump likely due to prerenal azotemia no signs of ischemia will repeat limited echo for wall motion recommend conservative care for muscular pain will cont to hold lisinopril for now and follow bp History of Present Illness Reason for Consultation: elevated troponin Requesting Physician: Dr. Cid Attending Physician: Pérez Osman MD History of Present Illness 75 you female presents with intermittent neck/shoulder pain. She states pain started last week while camping at [facility]. States that she first noticed it after sleeping in her camper for one night. Recurred every night while trying to lie down. Does not occur with exertion. Denies associated symtptoms. Yesterday while leaning over to clean a floor, pain reoccured. This time more severe with posssible radiation to her chest. Became concered and presented to ER. Also, daughter noted her BP to be in the 110-120's at home and thought that was too low for her. Troponin noted to be mildly elevated but in the setting of prerenal azotemia. Allergies Allergy/AdvReac Type Severity Reaction Status Date / Time capsaicin Allergy Intermediate elevated Verified 04/16/21 00:32 liver enzymes diclofenac Allergy Intermediate elevated Verified 04/16/21 00:32 liver enzymes NSAIDS (Non-Steroidal Allergy Intermediate ELEVATED Verified 04/16/21 00:32 Anti-Inflamma LIVER ENZYMES IN THE PAST Home Medications Medication Instructions Recorded Confirmed Type amitriptyline 10 mg tablet 10 mg PO HS 11/29/18 04/16/21 History hydrochlorothiazide 25 mg tablet 25 mg PO QAM 11/29/18 04/16/21 History pravastatin 20 mg tablet 20 mg PO HS 11/29/18 04/16/21 History Juice Plus 2 cap PO BID 02/10/19 04/16/21 History aspirin 81 mg tablet,delayed 81 mg PO HS 02/10/19 04/16/21 History release potassium chloride 10 mEq 10 meq PO QAM 02/10/19 04/16/21 History tablet,extended release acetaminophen 500 mg tablet 1,000 mg PO Q6H PRN 04/04/21 04/16/21 History ascorbic acid (vitamin C) 500 mg 500 mg PO BID 04/04/21 04/16/21 History tablet (Vitamin C) calcium carbonate 500 mg calcium 500 mg PO DAILY 04/04/21 04/16/21 History (1,250 mg) tablet (Calcium 500) famotidine 40 mg tablet 40 mg PO DAILY 04/04/21 04/16/21 History multivitamin with minerals 1 tab PO DAILY 04/04/21 04/16/21 History polyethylene glycol 3350 17 17 g PO DAILY PRN 04/04/21 04/16/21 History gram/dose oral powder (Miralax) apixaban 5 mg tablet (Eliquis) 5 mg PO BID #60 tab 04/05/21 04/16/21 Rx clonidine HCl 0.1 mg tablet 0.1 mg PO HS #0 tab 04/08/21 04/16/21 Rx clonidine HCl 0.1 mg tablet 0.1 mg PO HS #14 tab 04/08/21 04/16/21 Rx metoprolol tartrate 25 mg tablet 25 mg PO BID #60 tab 04/08/21 04/16/21 Rx tramadol 50 mg tablet 25 mg PO Q6H PRN #3 tab 04/08/21 04/16/21 Rx Patient History Medical History (Updated 04/16/21 @ 09:02 by Justo Hammer DO) Anemia HX Anxiety Depression Hyperlipidemia Hypertension Irritable bowel syndrome Kidney stones Migraine HX OF Osteoarthritis Surgical History History of cataract surgery LEFT History of cholecystectomy History of colonoscopy History of esophagogastroduodenoscopy (EGD) History of hysterectomy History of lithotripsy History of tooth extraction History of total knee replacement RT/LEFT Family History Mother Family history of diabetes mellitus Social History Smoking Status: Never smoker Second Hand Exposure: No; Hx Alcohol Use: No Hx Substance Use: No Preferred Language: Bhutanese Communication Ability: Effective 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 No acute distress. HEENT: Normocephalic, atraumatic. Pupils equal, round and reactive to light and accommodation. Extraocular muscles are intact. Anicteric sclera. Moist mucous membranes. Neck: No JVD. No bruit. Cardiovascular: Regular. Positive S-4. Normal S-1 and S-2. No S-3. No murmurs or rubs. Pulmonary: Clear to auscultation B/L. No rales, rhonchi or wheezing Abdomen: Bowel sounds x 4, soft. No rebound, guarding or tenderness. No organomegaly. Extremities: No clubbing, cyanosis or edema. +2 pedal pulses bilaterally. Skin: Warm and dry. Musculoskeletal: palpation of left trapezius reproduced the pain Results & Data ([facility]) Vital Signs (Past 12 Hours) Vital Signs Temp Pulse Pulse Resp BP BP Pulse Ox 04/16/21 07:09 59 L 18 122/61 95 04/16/21 06:18 36.6 C 69 16 161/78 H 97 04/16/21 06:08 71 19 161/78 H 04/16/21 05:55 68 67 19 120/71 134/70 94 04/16/21 05:00 70 65 20 130/70 96 04/16/21 04:30 67 19 93 04/16/21 04:00 69 21 95 04/16/21 03:00 78 79 17 121/63 121/63 95 04/16/21 02:30 69 19 138/102 H 04/16/21 02:00 69 27 H 111/67 92 04/16/21 01:30 61 23 118/57 L 93 04/16/21 01:00 68 18 117/65 91 04/16/21 00:48 73 16 126/71 95 04/16/21 00:22 36.7 C 83 18 118/76 95
--- NOTE | 2021-04-16 09:45 | XRay Report ---
XR chest 1V portable HISTORY: Atypical chest pain COMPARISON: Chest 04/04/2021. FINDINGS: The heart remains borderline enlarged. There are no new focal lung consolidations to sugges t pneumonia. No evidence for pulmonary edema. Mild chronic interstitial thickening persists. No pleur al effusions. No pneumothorax IMPRESSION: No significant change compared to the prior study. No acute process. ACT 112: Negative or not required by law. Electronically signed by: Buster Cifuentes M.D. 04/16/2021 9:43 AM
--- NOTE | 2021-04-16 09:59 | Electrocardiogram Report ---
Test Reason : Blood Pressure : / mmHG Vent. Rate : 083 BPM Atrial Rate : 083 BPM P-R Int : 180 ms QRS Dur : 104 ms QT Int : 434 ms P-R-T Axes : 052 -08 050 degrees QTc Int : 509 ms Poor data quality, interpretation may be adversely affected Normal sinus rhythm Moderate voltage criteria for LVH, may be normal variant Abnormal ECG When compared with ECG of 06-APR-2021 09:40, No significant change was found Confirmed by Filiberto Bishop ([id number]) on 04/16/2021 9:58:43 AM Referred By: REFERRED SELF Confirmed By:Filiberto Bishop
[2021-04-16 11:44] LABS: Partial Thromboplastin Time 79.7 Seconds (21.0-31.0)
[2021-04-16] MEDS ORDERED: DICLOFENAC SOD 1% GEL 100 GM TUBE EXT PRN (11:49)
--- NOTE | 2021-04-16 11:51 | Hospitalist Progress Note ---
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 Per patient she also has ongoing bilateral shoulder and upper back pain for which she takes Tylenol as needed but yesterday her pain did not respond to Tylenol and hence he decided to come to the ED. #. NSTEMI #. Musculoskeletal pain No history of smoking, very occasional alcoholic drink. No history of MN/stents At admission, her upper back pain was reproducible likely secondary to sleeping in a camper for [employer]. Also she complains of intermittent episodes of chest pain associated with upper back and shoulder pain. Patient takes 2 extra strength Tylenol as needed for her upper back pain which generally relieves her pain but not the evening of 04/15 which prompted her to come to ED. Troponin uptrendin.015, 0.076, 0.152; NSTEMI versus secondary to prerenal azotemia No new chest pain/tightness while inpatient. Admitting thoracic spine CTno acute finding Admitting CXRno acute finding Admitting EKGpoor quality but NSR at 83 bpm, no change when compared with previous EKG. Repeat EKG tomorrow morning, follow-up with the echo results, continue to hold lisinopril Patient on heparin drip, cardiology on boardappreciate recommendation Nitro as needed We will give her diclofenac gel for her upper back pain [per patient she has diclofenac induced liver injury, avoid oral NSAID] #. Mild prerenal azotemia BUN elevated to 29 and creatinine elevated 0.93 Prior to discharge BUN and creatinine were 17 and 0.81 Continue to monitor as needed #. PAF Currently on heparin drip, hence Eliquis held If no plan for procedure per cardio, will switch her back to Eliquis. #. Hypertension Recent hypotensive episode at home prompted discontinue of home lisinopril Under control, continue home meds #. Hyperlipidemia Continue home meds #. Thyroid nodule: Outpatient work-up DVT prophylaxis: Patient on heparin, Full code Disposition: Anticipate discharge in 1 to 2 days or as per cardio clearance. Admission and Anticipated Discharge Date Admission Date: April 16, 2021 Subjective Patient was lying semiupright in bed, NAD, on room air, no new acute issues overnight. Denies any further chest pain/tightness. Currently she does not have a upper back pain. Patient denies fever/chills/sore throat /palpitations/other review of symptoms. Physical Exam Physical Exam: GENERAL: Alert and oriented x3. NAD, on RA. HEENT: No pallor, no icterus. Pupils equal, round and reactive to light. Oral mucosa moist. NECK: No JVD, no neck masses. HEART: S1 and S2 heard. Regular rate and rhythm. Systolic murmur over aortic and pulmonic area, no gallop. RESPIRATORY SYSTEM: Normal AP diameter. No accessory muscle use. No wheezing, no crackles. ABDOMEN: Soft, bowel sounds present, nontender, no distention. CENTRAL NERVOUS SYSTEM: Alert and oriented x3. No facial droop. Speech is clear. Obeys simple commands. Moves extremities. EXTREMITIES: No edema, no erythema seen. Results & Data Results & Data ([facility]) Vital Signs (Past 12 Hours) Vital Signs Temp Pulse Pulse Resp BP BP Pulse Ox 04/16/21 11:20 36.3 C L 65 18 133/70 95 04/16/21 07:09 59 L 18 122/61 95 04/16/21 06:18 36.6 C 69 16 161/78 H 97 04/16/21 06:08 71 19 161/78 H 04/16/21 05:55 68 67 19 120/71 134/70 94 04/16/21 05:00 70 65 20 130/70 96 04/16/21 04:30 67 19 93 04/16/21 04:00 69 21 95 04/16/21 03:00 78 79 17 121/63 121/63 95 04/16/21 02:30 69 19 138/102 H 04/16/21 02:00 69 27 H 111/67 92 04/16/21 01:30 61 23 118/57 L 93 04/16/21 01:00 68 18 117/65 91 04/16/21 00:48 73 16 126/71 95 04/16/21 00:22 36.7 C 83 18 118/76 95
[2021-04-16 19:44] LABS: Partial Thromboplastin Ratio 3.2
[2021-04-16 20:09] LABS: Partial Thromboplastin Time 83.6 Seconds (21.0-31.0)
[2021-04-16] MEDS ORDERED: PRAVASTATIN SOD 20 MG TAB PO SCH (21:00)
[2021-04-16] MEDS ORDERED: cloNIDine HCL 0.1 MG TAB PO SCH (21:00)
[2021-04-16] MEDS ORDERED: ASPIRIN 81 MG ECTAB PO SCH (21:00)
[2021-04-16] MEDS ORDERED: AMITRIPTYLINE HCL 10 MG TAB PO SCH (21:00)
[2021-04-17 02:52] LABS: Basophils # (auto) 0.01 K/uL (0-0.2); Basophils % (auto) 0.1 %; Eosinophils # (auto) 0.16 K/uL (0-0.5); Eosinophils % (auto) 2.2 %; Hematocrit (blood only) 33.9 % (37-47); Hemoglobin 11.2 g/dL (12.0-16.0); Immature Granulocytes # (auto) 0.01 K/uL (0.00-0.02); Immature Granulocytes % (auto) 0.1 %; Lymphocytes # (auto) 3.45 K/uL (1.2-3.4); Lymphocytes % (auto) 46.7 %; Mean Corpuscular Hemoglobin 29.4 pg (25-34); Mean Platelet Volume 10.2 fL (7.4-10.4); Monocytes # (auto) 0.61 K/uL (0.11-0.59); Monocytes % (auto) 8.3 %; Neutrophils # (auto) 3.15 K/uL (1.4-6.5); Neutrophils % (auto) 42.6 %; Platelet Count 124 K/uL (130-400); RDW Coefficient of Variation 13.7 % (11.5-14.5); RDW Standard Deviation 44.3 fL (36.4-46.3); Red Blood Count 3.81 M/uL (4.2-5.4); White Blood Count 7.39 K/uL (4.8-10.8)
[2021-04-17 03:12] LABS: Calcium 8.7 mg/dl (8.5-10.1); Creatinine Clr Calc Pharmacy 69.1 ml/min; Est GFR (Non-African American) 81.1 ml/min; Potassium 3.8 mmol/L (3.5-5.1)
[2021-04-17 03:13] LABS: Partial Thromboplastin Ratio 3.9
[2021-04-17 03:23] LABS: Troponin I 0.089 ng/ml (0-0.045)
[2021-04-17 03:24] LABS: Partial Thromboplastin Time 103.6 Seconds (21.0-31.0)
[2021-04-17] MEDS: HEPARIN SODIUM/DEXTROSE 25,000 UNITS/500 ML BAG IV SCH (04:32)
[2021-04-17] MEDS ORDERED: POTASSIUM CHLORIDE CRTAB 20 MEQ TABCR PO STA (07:41)
[2021-04-17] MEDS: METOPROLOL TARTRATE 25 MG TAB PO SCH (08:03)
[2021-04-17] MEDS: FAMOTIDINE 40 MG TABLET PO SCH (08:03)
[2021-04-17] MEDS: CEROVITE ADV FORMULA TAB PO SCH (08:03)
[2021-04-17 10:55] LABS: Partial Thromboplastin Ratio 1.6; Partial Thromboplastin Time 42.4 Seconds (21.0-31.0)
--- NOTE | 2021-04-17 12:19 | Cardiology Progress Note ---
Date of Service April 17, 2021 Assessment & Plan (1) Atypical chest pain: (2) PAF (paroxysmal atrial fibrillation): (3) Anxiety: (4) Hypotension: Plan: musculoskeletal pain, reproducible secondary to sleeping in a camper for [employer] troponin bump likely due to prerenal azotemia no signs of ischemia will repeat limited echo for wall motion recommend conservative care for muscular pain will cont to hold lisinopril for now and follow bp Admission and Anticipated Discharge Date Admission Date: April 16, 2021 Review of Systems Review of Systems: All systems reviewed & are unremarkable except as noted in HPI & below Physical Exam Physical Exam: General: Awake, alert and oriented x 3. No acute distress. HEENT: Normocephalic, atraumatic. Pupils equal, round and reactive to light and accommodation. Extraocular muscles are intact. Anicteric sclera. Moist mucous membranes. Neck: No JVD. No bruit. Cardiovascular: Regular. Positive S-4. Normal S-1 and S-2. No S-3. No murmurs or rubs. Pulmonary: Clear to auscultation B/L. No rales, rhonchi or wheezing Abdomen: Bowel sounds x 4, soft. No rebound, guarding or tenderness. No organomegaly. Extremities: No clubbing, cyanosis or edema. +2 pedal pulses bilaterally. Skin: Warm and dry. Musculoskeletal: palpation of left trapezius reproduced the pain Results & Data ([facility]) Vital Signs (Past 12 Hours) Vital Signs Temp Pulse Pulse Resp BP BP Pulse Ox 04/17/21 08:30 75 04/17/21 07:47 36.4 C L 72 23 138/84 94 04/17/21 02:45 36.6 C 70 18 132/71 94
--- NOTE | 2021-04-17 15:51 | Electrocardiogram Report ---
Test Reason : Blood Pressure : / mmHG Vent. Rate : 077 BPM Atrial Rate : 077 BPM P-R Int : 180 ms QRS Dur : 094 ms QT Int : 444 ms P-R-T Axes : 058 005 055 degrees QTc Int : 502 ms Normal sinus rhythm Prolonged QT Abnormal ECG When compared with ECG of 16-APR-2021 00:36, No significant change was found Confirmed by Aron Lewis ([id number]) on 04/17/2021 3:51:37 PM Referred By: REFERRED SELF Confirmed By:Aron Lewis
--- NOTE | 2021-04-17 17:09 | Discharge Summary ---
Date of Service April 17, 2021 Admission HPI Per Admitting Provider History obtained from patient, family, and records. Medical history significant for PAF on Eliquis, hypertension, hyperlipidemia, PVD as per records, IBS, thyroid nodules. Last confinement April 06-2020 for chest tightness episodes with back radiation for about 3 years and new onset A. fib. New onset A. fib attributed to suboptimal BP control. Patient Coreg switched to metoprolol and clonidine dose decreased. Patient discharged on lisinopril as well. Eliquis started for anticoagulation for A. fib. Intermittent achy substernal chest pain episodes at home going to the back between the shoulder blades and neck with some shortness of breath even with good blood pressure control at home after confinement. Not related to exertion. No recollection of recent trauma. No unusual cough symptoms. SBP 80s yesterday with dizziness. Outpatient provider recommended stopping lisinopril as per patient. Patient brought to the ER by for further evaluation. 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 Admission Exam Per Admitting Provider GENERAL: Comfortable, slightly anxious, pleasant, obese, no respiratory distress SKIN: Normal color, warm HEENT: [place] palpebral conjunctivae, no ptosis, moist buccal mucosa NECK : Supple, short neck, no tenderness CHEST : CTA, no tenderness HEART : RRR, systolic murmur best heard over left sternal border ABDOMEN: Some distention, nontender BACK : Upper back tenderness EXTREMITIES : Minimal LE swelling, no LE tenderness, no other conspicuous deformities noted NEUROLOGIC : Coherent, no facial asymmetry, no other gross focality Principal Diagnosis Musculoskeletal pain Discharge Exam GENERAL: Alert and oriented x3. NAD, on RA. HEENT: No pallor, no icterus. Pupils equal, round and reactive to light. Oral mucosa moist. NECK: No JVD, no neck masses. HEART: S1 and S2 heard. Regular rate and rhythm. Systolic murmur over aortic and pulmonic area, no gallop. RESPIRATORY SYSTEM: Normal AP diameter. No accessory muscle use. No wheezing, no crackles. ABDOMEN: Soft, bowel sounds present, nontender, no distention. CENTRAL NERVOUS SYSTEM: Alert and oriented x3. No facial droop. Speech is clear. Obeys simple commands. Moves extremities. EXTREMITIES: No edema, no erythema seen. Discharge Data Allergies Allergy/AdvReac Type Severity Reaction Status Date / Time capsaicin Allergy Intermediate elevated Verified 04/16/21 00:32 liver enzymes diclofenac Allergy Intermediate elevated Verified 04/16/21 00:32 liver enzymes NSAIDS (Non-Steroidal Allergy Intermediate ELEVATED Verified 04/16/21 00:32 Anti-Inflamma LIVER ENZYMES IN THE PAST Consultations 04/16/21 02:12 ED Decision to Admit Stat 04/16/21 06:21 Consult Cardiology Routine Ordered Studies 04/16/21 02:54 CT thoracic spine wo con Urgent Hospital Course (1) NSTEMI (non-ST elevated myocardial infarction): 75-year-old female with PMH of PAF on Eliquis, HTN, HLD, IBS, 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 Per patient she also has ongoing bilateral shoulder and upper back pain for which she takes Tylenol as needed but yesterday her pain did not respond to Tylenol and hence he decided to come to the ED. #. NSTEMI #. Musculoskeletal painmost likely No history of smoking, very occasional alcoholic drink. No history of VT/stents At admission, her upper back pain was reproducible likely secondary to sleeping in a camper for [employer]. Also she complains of intermittent episodes of chest pain associated with upper back and shoulder pain. Patient takes 2 extra strength Tylenol as needed for her upper back pain which generally relieves her pain but not the evening of 04/15 which prompted her to come to ED. Troponin uptrendin.015, 0.076, 0.152, 0.089; secondary to prerenal azotemia No new chest pain/tightness while inpatient. Admitting thoracic spine CTno acute finding Admitting CXRno acute finding Admitting EKGpoor quality but NSR at 83 bpm, no change when compared with previous EKG. 04/16 echo: EF 65 to 70%, grade 1 diastolic dysfunction, mild concentric LVH. Continue to hold lisinopril Heparin stopped, resume home Eliquis Nitro as needed Can use diclofenac gel for her upper back pain [per patient she has diclofenac induced liver injury, avoid oral NSAID] Likely musculoskeletal pain. Cardiology okay with dischargeno new recommendation. #. Mild prerenal azotemia BUN elevated to 29 and creatinine elevated 0.93 Improving. #. PAF Continue with Eliquis upon discharge #. Hypertension Recent hypotensive episode at home prompted discontinue of home lisinopril Under control, continue home meds #. Hyperlipidemia Continue home meds #. Thyroid nodule: Outpatient work-up Discharge to home with following instruction: Take medications as prescribed. Follow-up with your primary care physician within 1 week of discharge. Follow-up for your thyroid nodule with your primary care physician. Total Time Total Time Spent Total Time Spent (In Minutes): 45 Discharge Plan Discharge Items Patient Disposition: Home - Self-Care Reason For Visit: NSTEMI Discharge Diagnosis: Musculoskeletal pain Activity: Resume your previous activity Non-emergency contact: Primary Care Provider Call non-emergency contact if: you have any medication questions, your symptoms worsen and your pain is not controlled Follow-up/Referrals: Casie Finn DO [Primary Care Provider] - (Date & Time 04/20/2021 11:10 AM Provider Casie Finn DO Department [facility] ) Tanisha Emanuel PA-C [Physician Claims Adjustor] - (Date & Time 04/19/2021 11:00 AM Provider Tanisha Emanuel PA-C Department Cardiology, [facility] ) Diet: Heart Healthy Addtl Attending Provider Instructions: Take medications as prescribed. Follow-up with your primary care physician within 1 week of discharge. Follow-up for your thyroid nodule with your primary care physician. Pending Studies at Discharge: No Stand-Alone Forms: My [facility] [employer], Smoking Cessation Medications and DC Order Prescriptions: Continued potassium chloride 10 mEq Tablet Extended Release 10 meq PO QAM RF: 0 Juice Plus 2 cap PO BID RF: 0 aspirin 81 mg Tablet,Delayed Release (Dr/Ec) 81 mg PO HS RF: 0 amitriptyline 10 mg Tablet 10 mg PO HS RF: 0 pravastatin 20 mg Tablet 20 mg PO HS RF: 0 hydrochlorothiazide 25 mg Tablet 25 mg PO QAM RF: 0 famotidine 40 mg Tablet 40 mg PO DAILY RF: 0 acetaminophen 500 mg Tablet 1,000 mg PO Q6H PRN (Reason: Pain) RF: 0 calcium carbonate [Calcium 500] 500 mg calcium (1,250 mg) Tablet 500 mg PO DAILY RF: 0 ascorbic acid (vitamin C) [Vitamin C] 500 mg Tablet 500 mg PO BID RF: 0 multivitamin with minerals Tablet 1 tab PO DAILY RF: 0 polyethylene glycol 3350 [Miralax] 17 gram/dose Powder 17 g PO DAILY PRN (Reason: Constipation) RF: 0 Eliquis 5 mg tablet 5 mg PO BID Qty: 60 RF: 0 metoprolol tartrate 25 mg Tablet 25 mg PO BID Qty: 60 RF: 0 tramadol 50 mg Tablet 25 mg PO Q6H PRN (Reason: pain) Qty: 3 RF: 0 clonidine HCl 0.1 mg Tablet 0.1 mg PO HS Qty: 0 RF: 0 Discontinued clonidine HCl 0.1 mg Tablet 0.1 mg PO HS Qty: 14 RF: 0 Discharge Orders: Discharge Order (Routine); Ordered 04/17/21 Ordered By: Pérez Osman Admission Data Admit Date/Time: 04/16/21 04:38 Attending Provider: Pérez Osman Admit Provider: Chip Lindo Primary Care Provider: Casie Finn Other Providers: Chip Lindo ; Justo Hammer ; Taj Hdez ; Remy Golden ; Ang Finn ; Laurent Ayala ; Ismael Delatorre ; Tanisha Carcamo ; Lana Solorzano ; Martina Holder ; Kwaku Brown Other Interventions: Discharge Summary Assessment (RN) Last Done: 04/17/21 14:18
== END 2021-04-17 15:15 | disposition home or self-care (01) | DRG 282 ==
LOC: ED 00:11 → 1E 04:00

== ENCOUNTER 2022-07-21 10:12 | Inpatient (IN) ==
[2022-07-21] MEDS ORDERED: ONDANSETRON INJ 2 MG/ML 2 ML VIAL IV STA ×2 (10:53→14:00)
[2022-07-21] MEDS ORDERED: ACETAMINOPHEN 1,000 MG/100 ML VIAL IV STA (10:53)
[2022-07-21] MEDS ORDERED: MoRPHine SULFATE 2 MG/ML CARP IV STA (10:53)
--- NOTE | 2022-07-21 11:01 | Emergency Department Note ---
Impression & Plan Precordial chest pain, Vomiting, SOB (shortness of breath), Elevated troponin ED Provider Note NAME: JACKIE RAY AGE: 77 SEX: F : 1945 ARRIVES VIA: Walk-In INFORMANT: [Patient] ED PROVIDER(S): [Quang Patel MD] CHIEF COMPLAINT: Chest pain HISTORY OF PRESENT ILLNESS: The patient is a 77-year-old female who presents with chest pain that has been present for about an hour and a half. The pain is moderate in severity and goes up to the neck and shoulders. She did vomit and felt short of breath. No sweating. The patient does admit to some increased cough lately. She has recently been prescribed some medication for her lungs as well as some prednisone. She also states that she recently started medication for shingles. The patient is on Eliquis for intermittent A. fib. She held her Eliquis a few days because of some GI or vaginal bleeding. She is having this worked up through her doctors office. She did restart the Eliquis and has been on her full dose for about a week. There is no fever. She does have pain to cough. She believes her cough is somewhat better since starting the prednisone and the new lung medication. She has noticed some sweats at night. REVIEW OF SYSTEMS: See HPI for pertinent positives and negatives. A total of ten systems were reviewed and were otherwise negative. PMHx/PSHx: See Below SOCIAL HISTORY: See Below. PHYSICAL EXAM: GENERAL: Patient is in no acute distress. HEENT: No acute trauma, normocephalic atraumatic, mucous membranes moist, no nasal congestion, no scleral icterus. NECK: No stridor, no adenopathy, no meningismus, trachea is midline. LUNGS: Clear to auscultation bilaterally, no wheeze, no rhonchi, breath sounds equal. Chest: Tender to the anterior sternal chest wall. HEART: Without murmurs gallops or rubs, regular rate and rhythm. ABDOMEN: Soft, nontender, bowel sounds positive, no peritonitis. EXTREMITIES: No cyanosis, mild bilateral pedal edema, full range of motion of all the joints without pain or difficulty, no signs for acute trauma. NEUROLOGIC: Oriented x 3, no acute motor or sensory deficits, no focal weakness. SKIN: No rash, no jaundice, no diaphoresis. DIFFERENTIAL DIAGNOSIS: Cardiac ischemia, aortic dissection, RSV, influenza, COVID-19, pulmonary embolism, pneumothorax, pneumonia, pericarditis, myocarditis, esophageal rupture , GERD, cholecystitis, pancreatitis, musculoskeletal, as well as other pathologies. EMERGENCY DEPARTMENT COURSE/PROCEDURES: ECG: Indication was chest pain. The ECG shows what appears to be a normal sinus rhythm with a rate of 82. LVH is present. There is some poor R wave progression. There is no concerning ST elevation, no PVCs. The QTc is 479. Repeat ECG: Indication was chest pain. ECG shows a normal sinus rhythm with a rate of 76. There is LVH present. There is no concerning ST elevation, no PVCs. The QTc is 486. The ECG is similar and unchanged compared to the previous ECG today. 3rd ECG: Indication was chest pain. The ECG shows a normal sinus rhythm with a rate of 60. LVH is present. There is no ST elevation, no PVCs. The QTc is 428. Compared to today's previous ECGs, I see no significant change. Continuous Cardiac Monitoring: An order was placed for continuous cardiac monitoring. The monitor shows a rate of 72 with normal sinus rhythm. Critical Care Note: I have personally spent 52 minutes of critical care time in the direct management of this patient. This includes bedside care, interpretation of diagnostic studies, and testing, discussion with consultants, patient, and family members, and other required patient management activities. This 52 minutes is in excess of all separately billable procedures. MEDICAL DECISION MAKING: There is a mild leukocytosis, this could be consistent with infection or her recent steroid use. The patient is anemic but the patient has a recent history of anemia. There is a normal platelet count. No coagulopathy. No renal failure or significant electrolyte abnormality. No concerning liver enzyme elevation. No pancreatitis. ECG showed a normal sinus rhythm, LVH was present, no ST elevation. Cardiac enzyme testing x1 was slightly elevated. Repeat tr oponin testing showed a continued rise in the value. The rising troponin numbers were concerning for cardiac injury. COVID, influenza and RSV test were negative. Chest x-ray did not show pneumonia or CHF. Chest CT did not show PE, aortic dissection or pneumonia. The patient was given IV Zofran, a second dose of IV Zofran was given. She was given nitroglycerin paste, 1 inch. She received IV morphine for pain, a second dose of IV morphine was given. She was given oral aspirin. He was given IV Tylenol. Two other EKGs were done while the patient was here in our ED, there was no change from the first. No ST elevation. The patient still has discomfort in her chest. The pain has improved to a 3 or so but she still has discomfort. With her complaints of pain, with the elevating troponin values, I did consult Dr. Watkins of interventional cardiology. As the troponin was continually rising, despite the unchanging ECG, it was felt the patient was a candidate for the cardiac catheterization laboratory. A heart alert was called. The patient is aware of her findings and our concerns. She had initially thought about being transferred to [facility] in [place] however, this would delay her cardiac care and she thus consented to potential intervention at our facility. I did speak with case management, the on-call hospitalist was consulted and did also evaluate the patient. Past Med/Surg History Medical History Anemia HX Anxiety Depression Hyperlipidemia Hypertension Irritable bowel syndrome Kidney stones Migraine HX OF Osteoarthritis Surgical History History of cataract surgery LEFT History of cholecystectomy History of colonoscopy History of esophagogastroduodenoscopy (EGD) History of hysterectomy History of lithotripsy History of tooth extraction History of total knee replacement RT/LEFT Family History Mother Family history of diabetes mellitus Social History Smoking Status: Never smoker Second Hand Exposure: No; Hx Alcohol Use: No Hx Substance Use: No Preferred Language: Turkmen Communication Ability: Effective 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 Beliefs That Will Affect Care: None marital status: Current Living Situation: Spouse Feels Safe at Home: Yes Assistive Devices: None Allergies Allergies Allergy/AdvReac Type Severity Reaction Status Date / Time capsaicin Allergy Intermediate elevated Verified 04/10/22 01:46 liver enzymes diclofenac Allergy Intermediate elevated Verified 04/10/22 01:46 liver enzymes NSAIDS (Non-Steroidal Allergy Intermediate ELEVATED Verified 04/10/22 01:46 Anti-Inflamma LIVER ENZYMES IN THE PAST Home Meds Home Medications Medication Instructions Recorded Confirmed hydrochlorothiazide 25 mg tablet 25 mg PO QAM 11/29/18 07/21/22 aspirin 81 mg tablet,delayed 81 mg PO HS 02/10/19 07/21/22 release potassium chloride 10 mEq 10 meq PO QAM 02/10/19 07/21/22 tablet,extended release acetaminophen 500 mg tablet 1,000 mg PO Q6H PRN Pain 04/04/21 07/21/22 ascorbic acid (vitamin C) 500 mg 500 mg PO QAM 04/04/21 07/21/22 tablet (Vitamin C) famotidine 40 mg tablet 40 mg PO QAM 04/04/21 07/21/22 multivitamin with minerals 1 tab PO QAM 04/04/21 07/21/22 calcium carbonate 500 mg calcium 500 mg PO QAM 04/10/22 07/21/22 (1,250 mg) tablet metoprolol tartrate 25 mg tablet 37.5 mg PO AMPM 04/10/22 07/21/22 nutritional supplement-fiber oral 1 ea PO DAILY 04/10/22 07/21/22 liquid albuterol sulfate 90 mcg/actuation 2 puff inhalation Q6 PRN Cough 07/21/22 07/21/22 aerosol inhaler amlodipine 5 mg tablet 5 mg PO QAM 07/21/22 07/21/22 ferrous sulfate 325 mg (65 mg 325 mg PO AMPM 07/21/22 07/21/22 iron) tablet (iron) fluticasone 250 mcg-salmeterol 50 1 ea inhalation AMHS 07/21/22 07/21/22 mcg/dose blistr powdr for inhalation ondansetron HCl 4 mg tablet 4 mg PO Q8 PRN Nausea 07/21/22 07/21/22 pravastatin 20 mg tablet 20 mg PO HS 07/21/22 07/21/22 prednisone 10 mg tablet 10 mg PO UD 07/21/22 07/21/22 trazodone 50 mg tablet 50 mg PO HS 07/21/22 07/21/22 valacyclovir 1 gram tablet 1,000 mg PO TID 07/21/22 07/21/22 Previous Rx's Medication Instructions Recorded apixaban 5 mg tablet (Eliquis) 5 mg PO BID #60 tabs 04/05/21 Results & Data (ED) Vital Signs Vital Signs - 24 hr 07/21/22 10:17 07/21/22 10:13 07/21/22 10:13 Temperature 36.4 C L Temperature Source Oral Pulse Rate 81 Pulse Rate [Apical] 73 Pulse Rhythm Regular Pulse Strength Normal Respiratory Rate 20 16 Respiratory Effort / Characteristics Non-Labored Spontaneous Respiratory Depth Normal Respiratory Pattern Regular Blood Pressure 177/100 H Blood Pressure [Left Arm] 183/96 H Blood Pressure Mean 125 Blood Pressure Mean [Left Arm] 125 Blood Pressure Position Sitting Pulse Oximetry 99 96 Oxygen Delivery Method Room Air Room Air Sepsis Recent Fever Within 48 Hours No Sepsis New/Unexplained Change in Mental Status No Sepsis Action Taken by Nursing No Action Required 07/21/22 10:54 07/21/22 13:05 07/21/22 14:38 Temperature Temperature Source Pulse Rate Pulse Rate [Apical] 72 74 Pulse Rhythm Pulse Strength Respiratory Rate 16 16 Respiratory Effort / Characteristics Respiratory Depth Respiratory Pattern Blood Pressure Blood Pressure [Left Arm] 147/76 H 154/97 H Blood Pressure Mean Blood Pressure Mean [Left Arm] 99 116 Blood Pressure Position Pulse Oximetry 95 95 96 Oxygen Delivery Method Sepsis Recent Fever Within 48 Hours Sepsis New/Unexplained Change in Mental Status Sepsis Action Taken by Retirement Medications Current Medication List: was personally reviewed by me Laboratory Data Attestation: I reviewed the patient's lab results. Result diagrams: 07/21/22 10:30 07/21/22 10:30 Lab Results 07/21/22 07/21/22 07/21/22 Range/Units 10:30 10:30 10:30 WBC 13.31 H (4.8-10.8) K/ul RBC 3.66 L (3.93-5.22) M/uL Hgb 10.1 L (12.0-16.0) g/dl Hct 31.3 L (34.1-44.9) % MCV 85.5 (80.0-100.0) fL MCH 27.6 (25.0-34.0) pg MCHC 32.3 (32.0-36.0) g/dL RDW Std Deviation 47.0 H (36.4-46.3) fL RDW Coeff of Leo 15.1 H (11.5-14.5) % Plt Count 260 (130-400) K/uL MPV 8.9 L (9.4-12.3) fL Immature Gran % (Auto) 1.4 % Neut % (Auto) 81.5 % Lymph % (Auto) 9.4 % [facility] % (Auto) 7.6 % Eos % (Auto) 0.0 % Baso % (Auto) 0.1 % Neut # (Auto) 10.86 H (1.4-6.5) K/uL Lymph # (Auto) 1.25 (1.2-3.4) K/uL [facility] # (Auto) 1.01 H (0.24-0.82) K/uL Eos # (Auto) 0.00 (0-0.50) K/uL Baso # (Auto) 0.01 (0-0.2) K/uL Immature Gran # (Auto) 0.18 H (0.00-0.02) K/uL PT 11.4 (9.0-12.0) Seconds INR 1.1 (0.9-1.1) APTT 27.7 (21.0-31.0) Seconds PTT Ratio 1.0 Sodium 137 (136-145) mmol/L Potassium 3.6 (3.5-5.1) mmol/L Chloride 99 (98-107) mmol/L Carbon Dioxide 28 (21-32) mmol/L Anion Gap 10 (3-11) BUN 19 (6-23) mg/dl Creatinine 0.72 (0.6-1.2) mg/dl Est Cr Clr Drug Dosing Not Reportable Est GFR ( Amer) 94.3 ml/min Est GFR (Non-Af Amer) 81.3 ml/min BUN/Creatinine Ratio 26.4 H (10-20) Glucose 145 H (70-99(Fasting)) mg/dl Calcium 10.5 H (8.5-10.1) mg/dl Total Bilirubin 0.5 (0.2-1.0) mg/dl AST 18 (13-39) U/L ALT 13 (7-52) U/L Alkaline Phosphatase 56 (34-104) U/L Troponin I High Sens 47.1 H (0-14) pg/ml Total Protein 7.8 (6.0-8.3) gm/dl Albumin 3.8 (3.4-5.0) gm/dl Globulin 4.0 (2.5-4.0) gm/dl Albumin/Globulin Ratio 1.0 (0.9-2) Lipase 15 (11-82) U/L SARS-CoV-2 (PCR) (Negative) Influenza Type A (PCR) (Neg) Influenza Type B (PCR) (Neg) RSV (RT-PCR) (Neg) 07/21/22 07/21/22 07/21/22 Range/Units 11:20 12:39 14:31 WBC (4.8-10.8) K/ul RBC (3.93-5.22) M/uL Hgb (12.0-16.0) g/dl Hct (34.1-44.9) % MCV (80.0-100.0) fL MCH (25.0-34.0) pg MCHC (32.0-36.0) g/dL RDW Std Deviation (36.4-46.3) fL RDW Coeff of Leo (11.5-14.5) % Plt Count (130-400) K/uL MPV (9.4-12.3) fL Immature Gran % (Auto) % Neut % (Auto) % Lymph % (Auto) % [facility] % (Auto) % Eos % (Auto) % Baso % (Auto) % Neut # (Auto) (1.4-6.5) K/uL Lymph # (Auto) (1.2-3.4) K/uL [facility] # (Auto) (0.24-0.82) K/uL Eos # (Auto) (0-0.50) K/uL Baso # (Auto) (0-0.2) K/uL Immature Gran # (Auto) (0.00-0.02) K/uL PT (9.0-12.0) Seconds INR (0.9-1.1) APTT (21.0-31.0) Seconds PTT Ratio Sodium (136-145) mmol/L Potassium (3.5-5.1) mmol/L Chloride (98-107) mmol/L Carbon Dioxide (21-32) mmol/L Anion Gap (3-11) BUN (6-23) mg/dl Creatinine (0.6-1.2) mg/dl Est Cr Clr Drug Dosing Est GFR ( Amer) ml/min Est GFR (Non-Af Amer) ml/min BUN/Creatinine Ratio (10-20) Glucose (70-99(Fasting)) mg/dl Calcium (8.5-10.1) mg/dl Total Bilirubin (0.2-1.0) mg/dl AST (13-39) U/L ALT (7-52) U/L Alkaline Phosphatase (34-104) U/L Troponin I High Sens 760.9 H* D 1696.5 H* D (0-14) pg/ml Total Protein (6.0-8.3) gm/dl Albumin (3.4-5.0) gm/dl Globulin (2.5-4.0) gm/dl Albumin/Globulin Ratio (0.9-2) Lipase (11-82) U/L SARS-CoV-2 (PCR) NEGATIVE (Negative) Influenza Type A (PCR) Negative (Neg) Influenza Type B (PCR) Negative (Neg) RSV (RT-PCR) Negative (Neg) Administered Medications Discontinued Medications Aspirin (Aspirin Chew 324 Mg) Confirm Administered Dose 324 mg .ROUTE .STK-MED ONE Stop: 07/21/22 13:34 Last Admin: 07/21/22 13:38 Dose: Not Given Documented By: JOSEPHINE Aspirin (Aspirin Chew 324 Mg) 324 mg PO NOW STA Stop: 07/21/22 13:34 Last Admin: 07/21/22 13:35 Dose: 324 mg Documented By: JOSEPHINE Acetaminophen (Ofirmev) 1,000 mg in 100 mls @ 400 mls/hr IV NOW STA Stop: 07/21/22 11:07 Last Infusion: 07/21/22 11:46 Dose: 0 mls/hr Documented By: Admin: 07/21/22 11:15 Dose: 400 mls/hr Documented By: RIK Ioversol (Optiray 320 500ml) 117 ml IV ONCE ONE Stop: 07/21/22 12:30 Last Admin: 07/21/22 12:29 Dose: 117 ml Documented By: ZAHIRA Morphine Sulfate (Morphine Sulfate 2 Mg/Ml Carp) 2 mg IV NOW STA Stop: 07/21/22 10:54 Last Admin: 07/21/22 11:16 Dose: 2 mg Documented By: RIK Morphine Sulfate (Morphine Sulfate 4 Mg/Ml 1 Ml Carp\Vial) 4 mg IV NOW STA Stop: 07/21/22 14:01 Last Admin: 07/21/22 14:05 Dose: 4 mg Documented By: JOSEPHINE Nitroglycerin (Nitroglycerin 2% Ointment 30gm Tube) 1 inch EXT NOW STA Stop: 07/21/22 13:34 Last Admin: 07/21/22 13:35 Dose: 1 inch Documented By: JOSEPHINE Nitroglycerin (Nitroglycerin 2% Ointment 30gm Tube) Confirm Administered Dose 18 inch EXT .STK-MED ONE Stop: 07/21/22 13:35 Last Admin: 07/21/22 13:39 Dose: Not Given Documented By: JOSEPHINE Ondansetron HCl (Ondansetron Inj 2 Mg/Ml 2 Ml Vial) 4 mg IV NOW STA Stop: 07/21/22 10:54 Last Admin: 07/21/22 11:15 Dose: 4 mg Documented By: RIK Ondansetron HCl (Ondansetron Inj 2 Mg/Ml 2 Ml Vial) 4 mg IV NOW STA Stop: 07/21/22 14:01 Last Admin: 07/21/22 14:04 Dose: 4 mg Documented By: JOSEPHINE Imaging Data Radiologist's Impression: Chest CTA 07/21/22 10:54 CT ANGIOGRAM OF THE CHEST CLINICAL HISTORY: Atypical chest pain. COMPARISON STUDY: Chest x-ray dated 07/21/2022. Chest CT dated 04/04/2021. TECHNIQUE: Following the IV administration of 117 cc of Optiray 320, CT angiogram of the chest was performed from the upper abdomen to the thoracic inlet utilizing the pulmonary embolus protocol. Images are reviewed in the axial, sagittal, and coronal planes. 3-D MIPS images are created and assessed. IV contrast was administered without complication. A dose lowering technique was utilized adhering to the principles of ALARA. CT DOSE: 598.55 mGy.cm FINDINGS: Thyroid: Mildly enlarged and heterogeneous. Thoracic aorta: The thoracic aorta is normal in caliber and demonstrates bovine variant arch anatomy. No dissection is seen. Pulmonary vasculature: The main pulmonary arteries appear dilated suggesting pulmonary artery hypertension. There are no filling defects identified in main, lobar, or segmental pulmonary branches to suggest pulmonary embolus. Heart: The heart is enlarged and without pericardial effusion. There are coronary artery calcifications. Lungs and pleural spaces: Evaluation of the lung parenchyma is degraded by motion artifact. No airspace consolidation or pleural effusion is identified. There is bibasilar scarring/atelectasis. A 4 mm right middle lobe pulmonary nodule seen on image #118 is unchanged and of low suspicion, as is a 5 mm focus of pleural-based nodularity in the right lower lobe along the major fissure seen on image #133. The trachea and central airways are clear. Mediastinum: There is no mediastinal lymphadenopathy. Cheryle: Clear. Axillae: There is no axillary lymphadenopathy. Upper abdomen: Hepatic cysts measure up to 8.2 cm. Partially visualized upper abdominal viscera is otherwise within normal limits. Skeletal structures: The skeletal structures are osteopenic. Degenerative change and mild hyperkyphosis is noted in the thoracic spine. A mild superior end plate compression deformity of T7 is age indeterminate but new from 04/04/2021.. No lytic or blastic bony lesions are seen. IMPRESSION: 1. There is no evidence of pulmonary embolus in the main, lobar, or segmental pulmonary arteries. 2. There is no airspace consolidation or pleural effusion. 3. Cardiomegaly. 4. There is a mild superior endplate compression fracture of T7. This is age ind eterminant but new from 04/04/2021. Clinical correlation will be required. 5. Additional findings as above. ACT 112: Negative or not required by law. Electronically signed by: Quang Meza M.D. 07/21/2022 1:35 PM Chest X-Ray 07/21/22 10:54 SINGLE VIEW CHEST CLINICAL HISTORY: Atypical chest pain. FINDINGS: An AP, portable, upright chest radiograph is compared to study dated 04/16/2021 and correlated with chest CT dated 04/04/2021. The examination is degraded by portable technique and apical lordotic positioning. The heart is enlarged. The pulmonary vasculature is noncongested. There is chronic elevation of the right hemidiaphragm with mild bibasilar atelectasis. The lungs and pleural spaces are otherwise clear. No pneumothorax is seen. The skeletal structures are osteopenic. The bony thorax is grossly intact. IMPRESSION: Cardiomegaly with no active disease in the chest. ACT 112: Negative or not required by law. Electronically signed by: Quang Meza M.D. 07/21/2022 11:27 AM Discharge Plan Visit Data Chief Complaint: Chest Pain Stated Complaint: CHEST PAIN ED Provider: Quang Patel Discharge Problem: Precordial chest pain, Vomiting, SOB (shortness of breath), Elevated troponin Patient Disposition: Admitted As Inpatient Condition: Fair Forms Stand Alone Forms: [facility] Prescriptions Prescriptions: No Action potassium chloride 10 mEq Tablet Extended Release 10 meq PO QAM aspirin 81 mg Tablet,Delayed Release (Dr/Ec) 81 mg PO HS hydrochlorothiazide 25 mg Tablet 25 mg PO QAM famotidine 40 mg Tablet 40 mg PO QAM acetaminophen 500 mg Tablet 1,000 mg PO Q6H PRN (Reason: Pain) ascorbic acid (vitamin C) [Vitamin C] 500 mg Tablet 500 mg PO QAM multivitamin with minerals Tablet 1 tab PO QAM Eliquis 5 mg tablet 5 mg PO BID Qty: 60 0RF valacyclovir 1 gram tablet 1,000 mg PO TID Rx Instructions: start 07/20/22 end 07/27/22 trazodone 50 mg tablet 50 mg PO HS pravastatin 20 mg tablet 20 mg PO HS fluticasone propion-salmeterol 250-50 mcg/dose blister with device 1 ea INHALATION AMHS prednisone 10 mg tablet 10 mg PO UD Rx Instructions: start 07/18/22 take 5 tablets for 2 days,4 tabs for 2 days,3 tabs for 2 days,2 tabs for 2 days,1 tab for 2 days ondansetron HCl 4 mg tablet 4 mg PO Q8 PRN (Reason: Nausea) amlodipine 5 mg tablet 5 mg PO QAM ferrous sulfate [iron] 325 mg (65 mg iron) Tablet 325 mg PO AMPM albuterol sulfate 90 mcg/actuation HFA aerosol inhaler 2 puff INHALATION Q6 PRN (Reason: Cough) metoprolol tartrate 25 mg tablet 37.5 mg PO AMPM Rx Instructions: take 1 & 1/2 tablets in the morning and 1 tablet in the evening calcium carbonate [Calcium 500] 500 mg calcium (1,250 mg) Tablet 500 mg PO QAM Juice Plus Liquid 1 ea PO DAILY Rx Instructions: juice plus fruit and veggetable Referrals Referrals: Casie Finn DO [Outside Practitioners] -
[2022-07-21 11:13] LABS: Basophils # (auto) 0.01 K/uL (0-0.2); Basophils % (auto) 0.1 %; Hematocrit (blood only) 31.3 % (34.1-44.9); Hemoglobin 10.1 g/dl (12.0-16.0); Immature Granulocytes # (auto) 0.18 K/uL (0.00-0.02); Immature Granulocytes % (auto) 1.4 %; Lymphocytes # (auto) 1.25 K/uL (1.2-3.4); Lymphocytes % (auto) 9.4 %; Mean Corpuscular Hemoglobin 27.6 pg (25.0-34.0); Mean Corpuscular Hgb Conc 32.3 g/dL (32.0-36.0); Mean Corpuscular Volume 85.5 fL (80.0-100.0); Mean Platelet Volume 8.9 fL (9.4-12.3); Monocytes # (auto) 1.01 K/uL (0.24-0.82); Monocytes % (auto) 7.6 %; Neutrophils # (auto) 10.86 K/uL (1.4-6.5); Neutrophils % (auto) 81.5 %; Platelet Count 260 K/uL (130-400); RDW Coefficient of Variation 15.1 % (11.5-14.5); Red Blood Count 3.66 M/uL (3.93-5.22); White Blood Count 13.31 K/ul (4.8-10.8)
[2022-07-21 11:26] LABS: INR 1.1 (0.9-1.1); Partial Thromboplastin Time 27.7 Seconds (21.0-31.0); Prothrombin Time 11.4 Seconds (9.0-12.0)
--- NOTE | 2022-07-21 11:28 | XRay Report ---
SINGLE VIEW CHEST CLINICAL HISTORY: Atypical chest pain. FINDINGS: An AP, portable, upright chest radiograph is compared to study dated 04/16/2021 and correlat ed with chest CT dated 04/04/2021. The examination is degraded by portable technique and apical lordotic positioning. The heart is enlar ged. The pulmonary vasculature is noncongested. There is chronic elevation of the right hemidiaphragm with mild bibasilar atelectasis. The lungs and pleural spaces are otherwise clear. No pneumothorax i s seen. The skeletal structures are osteopenic. The bony thorax is grossly intact. IMPRESSION: Cardiomegaly with no active disease in the chest. ACT 112: Negative or not required by law. Electronically signed by: Quang Meza M.D. 07/21/2022 11:27 AM
[2022-07-21 11:42] LABS: Alanine Aminotransferase 13 U/L (7-52); Albumin Level 3.8 gm/dl (3.4-5.0); Alkaline Phosphatase 56 U/L (34-104); Anion Gap 10 (3-11); Aspartate Aminotransferase 18 U/L (13-39); BUN Creatinine Ratio 26.4 (10-20); Bilirubin,Total 0.5 mg/dl (0.2-1.0); Blood Urea Nitrogen 19 mg/dl (6-23); Calcium 10.5 mg/dl (8.5-10.1); Carbon Dioxide 28 mmol/L (21-32); Chloride 99 mmol/L (98-107); Est GFR (African American) 94.3 ml/min; Est GFR (Non-African American) 81.3 ml/min; Glucose 145 mg/dl (70-99(Fasting)); Lipase 15 U/L (11-82); Potassium 3.6 mmol/L (3.5-5.1); Sodium 137 mmol/L (136-145); Total Protein 7.8 gm/dl (6.0-8.3)
[2022-07-21 11:43] LABS: Troponin I High Sensitivity 47.1 pg/ml (0-14)
[2022-07-21 12:16] LABS: Influenza A virus by PCR Negative (Neg); Influenza B virus by PCR Negative (Neg); RSV by PCR Negative (Neg); SARS CoV2 RNA(COVID-19) Ceph NEGATIVE (Negative)
[2022-07-21] MEDS ORDERED: OPTIRAY 320 500ml IV ONE (12:29)
[2022-07-21] MEDS ORDERED: ASPIRIN CHEW 324 MG PO STA (13:33)
[2022-07-21] MEDS ORDERED: ASPIRIN CHEW 324 MG ONE (13:33)
[2022-07-21] MEDS ORDERED: NITROGLYCERIN 2% OINTMENT 30GM TUBE EXT STA (13:33)
[2022-07-21] MEDS ORDERED: NITROGLYCERIN 2% OINTMENT 30GM TUBE EXT ONE (13:34)
--- NOTE | 2022-07-21 13:37 | CT Scan Report ---
CT ANGIOGRAM OF THE CHEST CLINICAL HISTORY: Atypical chest pain. COMPARISON STUDY: Chest x-ray dated 07/21/2022. Chest CT dated 04/04/2021. TECHNIQUE: Following the IV administration of 117 cc of Optiray 320, CT angiogram of the chest was pe rformed from the upper abdomen to the thoracic inlet utilizing the pulmonary embolus protocol. Images are reviewed in the axial, sagittal, and coronal planes. 3-D MIPS images are created and assessed. I V contrast was administered without complication. A dose lowering technique was utilized adhering to the principles of ALARA. CT DOSE: 598.55 mGy.cm FINDINGS: Thyroid: Mildly enlarged and heterogeneous. Thoracic aorta: The thoracic aorta is normal in caliber and demonstrates bovine variant arch anatomy. No dissection is seen. Pulmonary vasculature: The main pulmonary arteries appear dilated suggesting pulmonary artery hyperte nsion. There are no filling defects identified in main, lobar, or segmental pulmonary branches to sug gest pulmonary embolus. Heart: The heart is enlarged and without pericardial effusion. There are coronary artery calcificatio ns. Lungs and pleural spaces: Evaluation of the lung parenchyma is degraded by motion artifact. No airspa ce consolidation or pleural effusion is identified. There is bibasilar scarring/atelectasis. A 4 mm r ight middle lobe pulmonary nodule seen on image #118 is unchanged and of low suspicion, as is a 5 mm focus of pleural-based nodularity in the right lower lobe along the major fissure seen on image #133. The trachea and central airways are clear. Mediastinum: There is no mediastinal lymphadenopathy. Cheryle: Clear. Axillae: There is no axillary lymphadenopathy. Upper abdomen: Hepatic cysts measure up to 8.2 cm. Partially visualized upper abdominal viscera is ot herwise within normal limits. Skeletal structures: The skeletal structures are osteopenic. Degenerative change and mild hyperkyphos is is noted in the thoracic spine. A mild superior end plate compression deformity of T7 is age indet erminate but new from 04/04/2021.. No lytic or blastic bony lesions are seen. IMPRESSION: 1. There is no evidence of pulmonary embolus in the main, lobar, or segmental pulmonary arteries. 2. There is no airspace consolidation or pleural effusion. 3. Cardiomegaly. 4. There is a mild superior endplate compression fracture of T7. This is age indeterminant but new fr om 04/04/2021. Clinical correlation will be required. 5. Additional findings as above. ACT 112: Negative or not required by law. Electronically signed by: Quang Meza M.D. 07/21/2022 1:35 PM
[2022-07-21] MEDS ORDERED: MoRPHine SULFATE 4 MG/ML 1 ML CARP\\VIAL IV STA (14:00)
[2022-07-21] MEDS ORDERED: niCARdipine HCL INJ 2.5 MG/ML 10 ML AMP ONE (15:56)
[2022-07-21] MEDS ORDERED: fentaNYL citrate 100 MCG/2 ML VIAL ONE (15:56)
[2022-07-21] MEDS ORDERED: HEPARIN (PORCINE) 1000 UNIT/ML 10 ML (CATH LAB USE ONLY) ONE (15:56)
[2022-07-21] MEDS ORDERED: MIDAZOLAM HCL 1 MG/ML 2ML VIAL ONE (15:57)
[2022-07-21] MEDS ORDERED: NITROGLYCERIN/D5W 100MCG/ML 20ML SYR ONE (15:59)
--- NOTE | 2022-07-21 16:27 | Cardiology Consultation ---
Date of Consultation July 21, 2022 Assessment & Plan (1) Non-ST elevation RI (NSTEMI): Presentation concerning for high risk ACS and recommend proceeding with urgent cardiac catheterization. No apparent contraindications to procedure. Discussed risks, benefits, alternatives of procedure with patient and they are willing to proceed. Further recommendations pending findings of coronary angiography. History of Present Illness History of Present Illness 77-year-old woman here with acute chest pain and elevated troponin concerning for high risk ACS. Patient seen in the ED after heart alert activated due to refractory chest pain and rising HS TropI. Past cardiac history remarkable for paroxysmal atrial fibrillation on anticoagulation with Eliquis. She is followed by [facility] cardiology. Other medical issues include hypertension, dyslipidemia, anxiety/depression, IBS, osteoarthritis, kidney stones. Has also had issues with hematochezia and states recently had a colonoscopy that revealed colonic polyps. Patient previously hospitalized for atypical chest pain back 04/2021. At that time had minimally elevated troponin, echo showing preserved LV function. Since that time states intermittent episodes of palpitations with prior ambulatory monitoring per patient showing only PACs. This morning had different chest symptoms with diffuse pain across her chest and some numbness involving her arms along with nausea/vomiting. On presentation hypertensive to the 180s. Serial ECG showed sinus rhythm with LVH and no dynamic ST changes. At HS TropI has trended up from 40 up to 1700. Has had persistent chest pain despite multiple rounds of morphine, nitro. Improved currently with nitro patch. Allergies Allergy/AdvReac Type Severity Reaction Status Date / Time capsaicin Allergy Intermediate elevated Verified 04/10/22 01:46 liver enzymes diclofenac Allergy Intermediate elevated Verified 04/10/22 01:46 liver enzymes NSAIDS (Non-Steroidal Allergy Intermediate ELEVATED Verified 04/10/22 01:46 Anti-Inflamma LIVER ENZYMES IN THE PAST Home Medications Medication Instructions Recorded Confirmed Type hydrochlorothiazide 25 mg tablet 25 mg PO QAM 11/29/18 07/21/22 History aspirin 81 mg tablet,delayed 81 mg PO HS 02/10/19 07/21/22 History release potassium chloride 10 mEq 10 meq PO QAM 02/10/19 07/21/22 History tablet,extended release acetaminophen 500 mg tablet 1,000 mg PO Q6H PRN Pain 04/04/21 07/21/22 History ascorbic acid (vitamin C) 500 mg 500 mg PO QAM 04/04/21 07/21/22 History tablet (Vitamin C) famotidine 40 mg tablet 40 mg PO QAM 04/04/21 07/21/22 History multivitamin with minerals 1 tab PO QAM 04/04/21 07/21/22 History apixaban 5 mg tablet (Eliquis) 5 mg PO BID #60 tabs 04/05/21 07/21/22 Rx calcium carbonate 500 mg calcium 500 mg PO QAM 04/10/22 07/21/22 History (1,250 mg) tablet metoprolol tartrate 25 mg tablet 37.5 mg PO AMPM 04/10/22 07/21/22 History nutritional supplement-fiber oral 1 ea PO DAILY 04/10/22 07/21/22 History liquid albuterol sulfate 90 mcg/actuation 2 puff inhalation Q6 PRN Cough 07/21/22 07/21/22 History aerosol inhaler amlodipine 5 mg tablet 5 mg PO QAM 07/21/22 07/21/22 History ferrous sulfate 325 mg (65 mg 325 mg PO AMPM 07/21/22 07/21/22 History iron) tablet (iron) fluticasone 250 mcg-salmeterol 50 1 ea inhalation AMHS 07/21/22 07/21/22 History mcg/dose blistr powdr for inhalation ondansetron HCl 4 mg tablet 4 mg PO Q8 PRN Nausea 07/21/22 07/21/22 History pravastatin 20 mg tablet 20 mg PO HS 07/21/22 07/21/22 History prednisone 10 mg tablet 10 mg PO UD 07/21/22 07/21/22 History trazodone 50 mg tablet 50 mg PO HS 07/21/22 07/21/22 History valacyclovir 1 gram tablet 1,000 mg PO TID 07/21/22 07/21/22 History Patient History Medical History Anemia HX Anxiety Depression Hyperlipidemia Hypertension Irritable bowel syndrome Kidney stones Migraine HX OF Osteoarthritis Surgical History History of cataract surgery LEFT History of cholecystectomy History of colonoscopy History of esophagogastroduodenoscopy (EGD) History of hysterectomy History of lithotripsy History of tooth extraction History of total knee replacement RT/LEFT Family History Mother Family history of diabetes mellitus Social History Smoking Status: Never smoker Second Hand Exposure: No; Hx Alcohol Use: No Hx Substance Use: No Preferred Language: Citizen Of [place] Communication Ability: Effective Drafting Clerk Required: No Beliefs That Will Affect Care: None marital status: Current Living Situation: Spouse Feels Safe at Home: Yes Assistive Devices: None Review of Systems Review of Systems: All systems reviewed & are unremarkable except as noted in HPI & below Physical Exam Physical Exam: General: Comfortable HEENT: Sclerae anicteric Lungs: Clear anteriorly Cardiac: Regular rate and rhythm, no murmurs. Vascular: 2+ radial Abdomen: Soft, nontender Extremities: Well perfused, trace edema Neuro: Nonfocal Psych: Alert orient x3, normal affect and mood Results & Data ([facility]) Vital Signs (Past 12 Hours) Vital Signs Temp Pulse Pulse Resp BP BP Pulse Ox 07/21/22 14:38 74 16 154/97 H 96 07/21/22 13:05 72 16 147/76 H 95 07/21/22 10:54 95 07/21/22 10:13 73 16 183/96 H 96 07/21/22 10:13 07/21/22 10:17 97.5 F L 81 20 177/100 H 99 O2 Del Method 07/21/22 14:38 07/21/22 13:05 07/21/22 10:54 07/21/22 10:13 07/21/22 10:13 Room Air 07/21/22 10:17 Room Air PG Care Time/CCT Total # of Minutes Spent Total Time Spent with Patient: Total time spent is greater than 50% in coordination of care (as documented) at patient's floor/unit and/or counseling patient: Coding Level of Care Code 35096 Initial Inpt Care Lvl 3 Diagnoses Non-ST elevation RI (NSTEMI) I21.4
--- NOTE | 2022-07-21 17:03 | Communication Note ---
Date of Service: July 21, 2022 ATTENDING ADDENDUM: The patient is a 77-year-old female who presents with progressed to unstable angina and elevated troponin. She describes having an acute onset of substernal chest discomfort as if someone was squeezing her from behind which radiated into her upper arms and back as well as into her upper thighs in an aching sensation. She reports palpitations she also reports some nausea with one episode of vomiting. Notably she is on valacyclovir for a recent onset of shingles and this has made her nauseous in the past. She had taken her valacyclovir 2 hours prior to getting nauseous and throwing up. She reports having a Holter monitor in the past that was uneventful but has had palpitations previously. She has a history of atrial fibrillation. She states that her activity includes daily vacuuming because of pet hair, cooking dinner for family members on a daily basis, and other daily chores and activities. She has noticed that with exertion this same chest discomfort will come on and she will have to rest to have it go away. And this has been ongoing for 3 months. On physical exam she is in mild distress and slightly shaky from feeling cold. She is mentating clearly. Heart exam reveals S1/S2 noted with no murmurs gallops or rubs. She is in sinus rhythm. She has no peripheral edema. Skin is warm and dry. Lungs are clear to auscultation bilaterally. Abdomen is soft nontender nondistended. On her right buttock she has a very faint light pink scattered "rash" which is more 2-3 light pink spots that are very very faint near the intergluteal fold. She describes an intense itching and burning in this area which has been consistent with previous shingles episodes in the past. Work-up today in the ER reveals a CBC with an elevated white count of 13,000, anemia that is at her baseline with an H&H of 10.1/31.3, normal platelet count. There is no evidence of coagulopathy but she is on apixaban at home for atrial fibrillation. BMP is within normal limits with a slightly elevated BUN to creatinine ratio. Calcium is elevated at 10.5. Highly sensitive troponin trend went 47.1, 761, 1696. EKG revealed normal sinus rhythm with no evidence of concerning ST elevation. Overall this is a 77-year-old female who is describing accelerated angina now with NSTEMI. She is being taken to the cardiac catheterization lab for further investigation at this time. Continue current medications but may consider holding HCTZ given recent contrast administration to avoid contrast-induced nephropathy and expected post procedure fluids. Continue antiplatelet therapy as directed by cardiology based on findings. Continue Eliquis per cardiology based on findings. Continue metoprolol tartrate per home regimen. Continue pravastatin which may need to be intensified based on findings of cardiac cath. Cont Valtrex and isolation precautions for acute shingles infection. We will follow. DO Faustino
--- NOTE | 2022-07-21 17:15 | Pre Anesthesia Assessment ---
Date of Service July 21, 2022 Pre Sedation Assessment Vital Signs Temp Pulse Pulse Resp BP BP Pulse Ox 07/21/22 14:38 74 16 154/97 H 96 07/21/22 13:05 72 16 147/76 H 95 07/21/22 10:54 95 07/21/22 10:13 73 16 183/96 H 96 07/21/22 10:13 07/21/22 10:17 97.5 F L 81 20 177/100 H 99 O2 Del Method 07/21/22 14:38 07/21/22 13:05 07/21/22 10:54 07/21/22 10:13 07/21/22 10:13 Room Air 07/21/22 10:17 Room Air Cardiovascular RRR, no murmur, no edema Respiratory normal respiratory effort, lungs clear to auscultation Pre-Sedation Airway Assessment Smoking Status: Never smoker Hx Sleep Apnea: No Hx Difficult Intubation: No Short, Thick Neck: No Thyromental Distance: > or= 3.5 Finger Breadths Oral Cavity: + WNL Mallampati Class: III ASA: ASA3 Procedure Planning Contraindications for Sedation: none Current Medications Reviewed: Yes Notes The planned sedation has been discussed with the patient. Informed Consent was obtained. I have identified the patient, determined the appropriateness of sedation and have assessed the patient immediately prior to the procedure. All medicine(s) and interventions are by my order.
--- NOTE | 2022-07-21 17:15 | Post Anesthesia Assessment ---
Date of Service July 21, 2022 Post Sedation Assessment Vital Signs Temp Pulse Pulse Resp BP BP Pulse Ox 07/21/22 14:38 74 16 154/97 H 96 07/21/22 13:05 72 16 147/76 H 95 07/21/22 10:54 95 07/21/22 10:13 73 16 183/96 H 96 07/21/22 10:13 07/21/22 10:17 97.5 F L 81 20 177/100 H 99 O2 Del Method 07/21/22 14:38 07/21/22 13:05 07/21/22 10:54 07/21/22 10:13 07/21/22 10:13 Room Air 07/21/22 10:17 Room Air Recovery Score Activity: Moves 4 extremities Respiration: Deep Breath/Cough Circulation: +/-20% PreAnes Value Consciousness: Fully Awake Oxygen Saturation: O2 needed for >90% Discharge Sedation Level of Care: Fast Track Phase II Post Sedation Plan On clinical assessment, the patient appears to have tolerated the sedation without complications. Patient is recovering as anticipated. Patient will continue to be monitored by nursing and may be discharged when sedation discharge criteria are met per below protocol. Upon Completions of procedure up to 15 minutes continue every 5 minute vital signs and the P.A.R. score; then discharge to a Phase I or Fast Track to Phase II per the following guidelines: * Discharge Patient to appropriate Phase II area if PAR is 8 or greater or return to pre- procedure baseline. The post - procedure orders will be as directed. * If PAR score is less than 8 or not return to pre-procedure baseline then patient will follow Phase I monitoring till PAR is reached for Phase II. The Phase I may be done in procedure room or may call to secure a Phase I area. * If naloxone or flumazenil are used for reversal, hold in Phase I for continued monitoring from when last reversal dose was given for a minimum of 60 minutes or longer pending the nurse and/or physician discretion of patient condition before discharge to Phase II. Please call the Sedation Physician to re-evaluate and complete post-note for discharge to Phase II area. Do NOT discharge from procedure sedation or Phase 1 until post- sedation evaluation note is complete by procedure /sedation MD Sedation Discharge Instructions to be given to the patient at discharge to home.
[2022-07-21] MEDS ORDERED: ONDANSETRON INJ 2 MG/ML 2 ML VIAL ONE (17:16)
[2022-07-21] MEDS ORDERED: ONDANSETRON INJ 2 MG/ML 2 ML VIAL IV PRN (17:28)
--- NOTE | 2022-07-21 17:28 | Cardiac Catheterization ---
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 Clinical evaluation leading to the procedure CAD Presenation: Non STEMI Anginal Classification: CCS IV Diagnostic Physicians Name: Edgar Watkins MD Closure Device Recommendations: Medical Therapy and/or Counseling Cardiac Cath Procedure Full Procedure Date July 21, 2022 Pre-Procedure Diagnosis Pre-Procedure Diagnosis: Acute Coronary Syndrome AUC Score AUC Score: 8 Post-Procedure Diagnosis Post-Procedure Diagnosis: Mild CAD and Normal Intracardiac Pressures Procedure(s) Performed Procedure(s) Performed: Coronary Angiography, Left Heart Cath and IVUS Machinist Brake Edgar Watkins MD Animal Behaviorist(s) Falguni Estimated Blood Loss Estimated Blood Loss: 10 Medication(s) Medication(s): Fentanyl, Heparin, Lidocaine 1%, Nicardipine, Nitroglycerin and Versed Summary of Findings Indication: Suspected high risk ACS Access: 6 Fr right radial artery Catheters: [place], diagnostic JR4, EBU 3.5 guide Findings: LM -Short, normal caliber, no significant disease LAD -large caliber, 40% mid segment disease at takeoff of D1/S1 remainder of vessel without significant disease and wraps around apex. Small D1 20% ostial, medium D2 without significant disease. Circumflex -large caliber, no centimeters ease. Medium OM 2 without disease. RCA -dominant, large caliber, midsegment luminal irregularities LVEDP -7 Procedure: -Left main cannulated with EBU 3.5 guide -BMW wire placed into distal LAD -[place] IVUS catheter placed across stenosis -Pullback revealed calcified, mild to moderate mid LAD just distal to the takeoff of D1, MLA 5.3 mm. Proximal LAD, left main without significant disease. -Coronary angiography revealed no apparent complications post wire/catheter removal Arterial Closure: TR band Summary: 1. LA with nonobstructive coronary arteries ([place]) 2. Mild to moderate nonobstructive single-vessel CAD -40% mid LAD stenosis (chronic, calcified moderate disease by IVUS) 3. Normal intracardiac filling pressure Recommendations: No high risk CAD identified. Admit to telemetry for further medical management Trend troponin, check echocardiogram in a.m. Symptoms improved with nitrates and consider starting long-acting nitrate for possible coronary vasospasm Continue ASCVD risk factor modification Hemodynamics Rest Ao:: 129/70/95 Final Ao: 120/65/91 LV: 148/7 Recommendations Recommendations: Medical Therapy and/or Counseling Specimens Specimens: None Radiation Exposure (mGy) 1685 Contrast (mls) 70 Anesthesia Moderate [id number] Procedural Complication(s) None Disposition PCU I attest to the content of the Intraoperative Record and any orders documented therein. Any exceptions are noted below. [facility] Card Cath Procedure Codes Cardiac Catheterization Procedure 1: Cardiovascular Cath Procedures: 33997 Coronaries and LHC (+/-LV) Therapeutic Services & Ancillary Procedure 1: Cardiovascular Tx and Anc Procedures: 44773 IV Ultrasound (Coronary or Graft) Moderate Sedation Procedure 1: Sedation/Anesthesia: 82059 Mod Sedation by the same physician;Init15 Min Child Age 5 & Up PG Care Time/CCT Total # of Minutes Spent Total Time Spent with Patient: Total time spent is greater than 50% in coordination of care (as documented) at patient's floor/unit and/or counseling patient:
[2022-07-21] MEDS ORDERED: SODIUM CHLORIDE 0.9% 1000ML 1,000 ML IV SCH (17:30)
[2022-07-21] MEDS ORDERED: METOPROLOL TARTRATE 25 MG TAB PO SCH (18:30)
--- NOTE | 2022-07-21 18:39 | History & Physical Report ---
Date of Service July 21, 2022 Assessment & Plan (1) Non-ST elevation MS (NSTEMI): Plan: Admit to telemetry Patient presenting from home with acute onset upper chest discomfort radiating into the back and both arms. In the ED, EKG x [address] changes, patient received IV morphine and sublingual nitroglycerin. HS troponin continue to trend upward. With ongoing chest discomfort and rising troponin, patient was taken to the [facility] emergently. CTA chest unremarkable Cardiac cath showed nonobstructive CAD with 40% mid LAD stenosis -no intervention required Continue ASA, statin, beta-donya Resting echo (2) PAF (paroxysmal atrial fibrillation): Plan: Rate controlled on metoprolol, anticoagulated on Eliquis (3) Hypertension: Plan: Continue metoprolol and amlodipine Holding HCTZ 2/2 to dye load today - resume as renal functions allow (4) Diastolic dysfunction: Plan: Echo 04/2021-EF 65 to 70%, grade 1 diastolic dysfunction Appears euvolemic (5) Herpes zoster: Plan: Continue valacyclovir Isolation precautions DVT prophylaxis On Eliquis Admission and Anticipated Discharge Date Admission Date: July 21, 2022 History of Present Illness Chief Complaint: Chest Pain Primary Care Provider: Suri Tuttle DO 77 year old female with PMH dyslipidemia, paroxysmal afib, HTN, diastolic dysfunction, IBS, GERD, and other problems listed below who presents to the ED for evaluation of chest pain. Patient reports that this morning around 9 AM, she had sudden onset of upper chest discomfort that was radiating around to her back and into both upper arms. Patient describes the sensation as a squeezing feeling. Patient rates her discomfort as a #9/10. Patient also had associated nausea with one episode of vomiting and mild diaphoresis. No lightheadedness, dizziness, syncopal event. Patient was recently diagnosed with shingles and is currently on valacyclovir. Patient also has been following with PCP for ongoing cough for the past several months. She was recently started on an inhaler and a prednisone taper. Patient is on Eliquis for paroxysmal atrial fibrillation and reports some mild rectal bleeding a couple of weeks ago. Patient reports a history of hemorrhoids. Patient states that she held her Eliquis for a few days and bleeding subsided. Patient denies fevers and chills. No urinary symptoms. In the ED, patient is hemodynamically stable, EKG x [address] changes. HS troponin 47.1 --> 760.9 --> 1696.5. Patient received IV morphine and topical nitroglycerin and continues to have mild discomfort. Given ongoing chest discomfort and rising troponin, patient was taken to the [facility] emergently. Allergies Allergy/AdvReac Type Severity Reaction Status Date / Time capsaicin Allergy Intermediate elevated Verified 04/10/22 01:46 liver enzymes diclofenac Allergy Intermediate elevated Verified 04/10/22 01:46 liver enzymes NSAIDS (Non-Steroidal Allergy Intermediate ELEVATED Verified 04/10/22 01:46 Anti-Inflamma LIVER ENZYMES IN THE PAST Home Medications Medication Instructions Recorded Confirmed Type hydrochlorothiazide 25 mg tablet 25 mg PO QAM 11/29/18 07/21/22 History aspirin 81 mg tablet,delayed 81 mg PO HS 02/10/19 07/21/22 History release potassium chloride 10 mEq 10 meq PO QAM 02/10/19 07/21/22 History tablet,extended release acetaminophen 500 mg tablet 1,000 mg PO Q6H PRN Pain 04/04/21 07/21/22 History ascorbic acid (vitamin C) 500 mg 500 mg PO QAM 04/04/21 07/21/22 History tablet (Vitamin C) famotidine 40 mg tablet 40 mg PO QAM 04/04/21 07/21/22 History multivitamin with minerals 1 tab PO QAM 04/04/21 07/21/22 History apixaban 5 mg tablet (Eliquis) 5 mg PO BID #60 tabs 04/05/21 07/21/22 Rx calcium carbonate 500 mg calcium 500 mg PO QAM 04/10/22 07/21/22 History (1,250 mg) tablet metoprolol tartrate 25 mg tablet 37.5 mg PO AMPM 04/10/22 07/21/22 History nutritional supplement-fiber oral 1 ea PO DAILY 04/10/22 07/21/22 History liquid albuterol sulfate 90 mcg/actuation 2 puff inhalation Q6 PRN Cough 07/21/22 07/21/22 History aerosol inhaler amlodipine 5 mg tablet 5 mg PO QAM 07/21/22 07/21/22 History ferrous sulfate 325 mg (65 mg 325 mg PO AMPM 07/21/22 07/21/22 History iron) tablet (iron) fluticasone 250 mcg-salmeterol 50 1 ea inhalation AMHS 07/21/22 07/21/22 History mcg/dose blistr powdr for inhalation ondansetron HCl 4 mg tablet 4 mg PO Q8 PRN Nausea 07/21/22 07/21/22 History pravastatin 20 mg tablet 20 mg PO HS 07/21/22 07/21/22 History prednisone 10 mg tablet 10 mg PO UD 07/21/22 07/21/22 History trazodone 50 mg tablet 50 mg PO HS 07/21/22 07/21/22 History valacyclovir 1 gram tablet 1,000 mg PO TID 07/21/22 07/21/22 History Past Med/Surg History Medical History Anemia HX Depression Diastolic dysfunction Herpes zoster Hyperlipidemia Hypertension Irritable bowel syndrome Kidney stones Kidney stones Migraine HX OF Osteoarthritis PAF (paroxysmal atrial fibrillation) Surgical History History of cataract surgery LEFT History of cholecystectomy History of colonoscopy History of esophagogastroduodenoscopy (EGD) History of hysterectomy History of lithotripsy History of tooth extraction History of total knee replacement RT/LEFT Family History Mother Family history of diabetes mellitus Social History Smoking Status: Never smoker Second Hand Exposure: No; Do You Dip or Chew Tobacco: No; Tobacco Cessation Education Requested by Patient: No Hx Alcohol Use: No Hx Substance Use: No Preferred Language: Maltese Communication Ability: Effective Plaque Maker Required: No Beliefs That Will Affect Care: None marital status: Current Living Situation: Spouse Other Information That Helps Us Care for You: No Feels Safe at Home: Yes Safety Concerns: Feels Safe At This Time Assistive Devices: Denture - Upper and Glasses Review of Systems Review of Systems: ROS per HPI, all other systems reviewed and negative Physical Exam Constitutional: WD/WN, vitals as above Eyes: PERRL, conjunctivae normal, anicteric sclerae ENMT: external ear and nose normal, oropharynx normal Respiratory: normal respiratory effort, lungs clear to auscultation Cardiovascular: Rate/Rhythm: regular rate and regular rhythm Vessels: normal peripheral pulses Extremities: no edema Gastrointestinal (Abdomen): normal bowel sounds, soft, nontender, no hepatosplenomegaly Musculoskeletal: no cyanosis or clubbing, extremities motor strength 5/5 Neurologic: PERRL, EOMI, accommodation nl, no face palsy, no dysarthria Psychiatric: A+Ox3, euthymic affect Results & Data Results & Data ([facility]) Vital Signs (Past 12 Hours) Vital Signs Temp Pulse Pulse Resp BP BP Pulse Ox 07/21/22 18:14 36.6 C 75 18 137/76 93 07/21/22 17:59 36.6 C 77 18 129/79 94 07/21/22 17:35 36.4 C L 74 16 145/79 H 92 07/21/22 17:32 36.4 C L 71 18 145/79 H 93 07/21/22 14:38 74 16 154/97 H 96 07/21/22 13:05 72 16 147/76 H 95 07/21/22 10:54 95 07/21/22 10:13 73 16 183/96 H 96 07/21/22 10:13 07/21/22 10:17 36.4 C L 81 20 177/100 H 99 O2 Del Method 07/21/22 18:14 Room Air 07/21/22 17:59 Room Air 07/21/22 17:35 Room Air 07/21/22 17:32 Room Air 07/21/22 14:38 07/21/22 13:05 07/21/22 10:54 07/21/22 10:13 07/21/22 10:13 Room Air 07/21/22 10:17 Room Air Laboratory Results Short CBC 07/21/22 Range/Units 10:30 WBC 13.31 H (4.8-10.8) K/ul Hgb 10.1 L (12.0-16.0) g/dl Hct 31.3 L (34.1-44.9) % Plt Count 260 (130-400) K/uL BMP 07/21/22 10:30 Sodium 137 Potassium 3.6 Chloride 99 Carbon Dioxide 28 BUN 19 Creatinine 0.72 Glucose 145 H Calcium 10.5 H Liver Function 07/21/22 Range/Units 10:30 Total Bilirubin 0.5 (0.2-1.0) mg/dl AST 18 (13-39) U/L ALT 13 (7-52) U/L Alkaline Phosphatase 56 (34-104) U/L Albumin 3.8 (3.4-5.0) gm/dl Diagnostic Findings Chest CTA 07/21/22 10:54 CT ANGIOGRAM OF THE CHEST CLINICAL HISTORY: Atypical chest pain. COMPARISON STUDY: Chest x-ray dated 07/21/2022. Chest CT dated 04/04/2021. TECHNIQUE: Following the IV administration of 117 cc of Optiray 320, CT angiogram of the chest was performed from the upper abdomen to the thoracic inlet utilizing the pulmonary embolus protocol. Images are reviewed in the axial, sagittal, and coronal planes. 3-D MIPS images are created and assessed. IV contrast was administered without complication. A dose lowering technique was utilized adhering to the principles of ALARA. CT DOSE: 598.55 mGy.cm FINDINGS: Thyroid: Mildly enlarged and heterogeneous. Thoracic aorta: The thoracic aorta is normal in caliber and demonstrates bovine variant arch anatomy. No dissection is seen. Pulmonary vasculature: The main pulmonary arteries appear dilated suggesting pulmonary artery hypertension. There are no filling defects identified in main, lobar, or segmental pulmonary branches to suggest pulmonary embolus. Heart: The heart is enlarged and without pericardial effusion. There are coronary artery calcifications. Lungs and pleural spaces: Evaluation of the lung parenchyma is degraded by motio n artifact. No airspace consolidation or pleural effusion is identified. There is bibasilar scarring/atelectasis. A 4 mm right middle lobe pulmonary nodule seen on image #118 is unchanged and of low suspicion, as is a 5 mm focus of pleural-based nodularity in the right lower lobe along the major fissure seen on image #133. The trachea and central airways are clear. Mediastinum: There is no mediastinal lymphadenopathy. Cheryle: Clear. Axillae: There is no axillary lymphadenopathy. Upper abdomen: Hepatic cysts measure up to 8.2 cm. Partially visualized upper abdominal viscera is otherwise within normal limits. Skeletal structures: The skeletal structures are osteopenic. Degenerative change and mild hyperkyphosis is noted in the thoracic spine. A mild superior end plate compression deformity of T7 is age indeterminate but new from 04/04/2021.. No lytic or blastic bony lesions are seen. IMPRESSION: 1. There is no evidence of pulmonary embolus in the main, lobar, or segmental pu lmonary arteries. 2. There is no airspace consolidation or pleural effusion. 3. Cardiomegaly. 4. There is a mild superior endplate compression fracture of T7. This is age indeterminant but new from 04/04/2021. Clinical correlation will be required. 5. Additional findings as above. ACT 112: Negative or not required by law. Electronically signed by: Quang Meza M.D. 07/21/2022 1:35 PM Chest X-Ray 07/21/22 10:54 SINGLE VIEW CHEST CLINICAL HISTORY: Atypical chest pain. FINDINGS: An AP, portable, upright chest radiograph is compared to study dated 04/16/2021 and correlated with chest CT dated 04/04/2021. The examination is degraded by portable technique and apical lordotic positioning. The heart is enlarged. The pulmonary vasculature is noncongested. There is chronic elevation of the right hemidiaphragm with mild bibasilar atelectasis. The lungs and pleural spaces are otherwise clear. No pneumothorax is seen. The skeletal structures are osteopenic. The bony thorax is grossly intact. IMPRESSION: Cardiomegaly with no active disease in the chest. ACT 112: Negative or not required by law. Electronically signed by: Quang Meza M.D. 07/21/2022 11:27 AM Code Status & VTE Plan Code Status Patient is a full code as per my discussion with her. VTE Prophylaxis Plan VTE Prophylaxis will be ordered: Yes Supervising Physician Co-Signing Physician Notes I have seen and examined the patient and have discussed the case with the provider above. I agree with the assessment and plan as stated with the following exceptions. The patient is a 77-year-old female who presents with progressed to unstable angina and elevated troponin. She describes having an acute onset of substernal chest discomfort as if someone was squeezing her from behind which radiated into her upper arms and back as well as into her upper thighs in an aching sensation. She reports palpitations she also reports some nausea with one episode of vomiting. Notably she is on valacyclovir for a recent onset of shingles and this has made her nauseous in the past. She had taken her valacyclovir 2 hours prior to getting nauseous and throwing up. She reports having a Holter monitor in the past that was uneventful but has had palpitations previously. She has a history of atrial fibrillation. She states that her activity includes daily vacuuming because of pet hair, cooking dinner for family members on a daily basis, and other daily chores and activities. She has noticed that with exertion this same chest discomfort will come on and she will have to rest to have it go away. And this has been ongoing for 3 months. On physical exam she is in mild distress and slightly shaky from feeling cold. She is mentating clearly. Heart exam reveals S1/S2 noted with no murmurs gallops or rubs. She is in sinus rhythm. She has no peripheral edema. Skin is warm and dry. Lungs are clear to auscultation bilaterally. Abdomen is soft nontender nondistended. On her right buttock she has a very faint light pink scattered "rash" which is more 2-3 light pink spots that are very very faint near the intergluteal fold. She describes an intense itching and burning in this area which has been consistent with previous shingles episodes in the past. Work-up today in the ER reveals a CBC with an elevated white count of 13,000, anemia that is at her baseline with an H&H of 10.1/31.3, normal platelet count. There is no evidence of coagulopathy but she is on apixaban at home for atrial fibrillation. BMP is within normal limits with a slightly elevated BUN to creatinine ratio. Calcium is elevated at 10.5. Highly sensitive troponin trend went 47.1, 761, 1696. EKG revealed normal sinus rhythm with no evidence of concerning ST elevation. Overall this is a 77-year-old female who is describing accelerated angina now with NSTEMI. She is being taken to the cardiac catheterization lab for further investigation at this time. Continue current medications but may consider holding HCTZ given recent contrast administration to avoid contrast-induced nephropathy and expected post procedure fluids. Continue antiplatelet therapy as directed by cardiology based on findings. Continue Eliquis per cardiology based on findings. Continue metoprolol tartrate per home regimen. Continue pravastatin which may need to be intensified based on findings of cardiac cath. Cont Valtrex and isolation precautions for acute shingles infection. We will follow. DO Faustino
[2022-07-21] MEDS: ACETAMINOPHEN 325 MG TAB PO PRN (18:46)
[2022-07-21] MEDS: FERROUS SULFATE 325 MG TAB PO SCH (20:14)
[2022-07-21] MEDS: traZODone HCL 50 MG TAB PO SCH (20:14)
[2022-07-21] MEDS: PRAVASTATIN SOD 20 MG TAB PO SCH (20:14)
[2022-07-21] MEDS: METOPROLOL TARTRATE 25 MG TAB PO SCH (20:14)
[2022-07-21] MEDS: valACYclovir HCL 500 MG TABLET PO SCH (20:14)
[2022-07-21] MEDS ORDERED: traMADol HCL 50 MG TABLET PO PRN (21:32)
[2022-07-22] MEDS ORDERED: PERFLUTREN LIPID MICROSPHERE (DEFINITY) IV ONE (07:19)
[2022-07-22 08:04] LABS: Hematocrit (blood only) 35.4 % (34.1-44.9); Hemoglobin 11.1 g/dl (12.0-16.0); Mean Corpuscular Hemoglobin 27.4 pg (25.0-34.0); Mean Corpuscular Hgb Conc 31.4 g/dL (32.0-36.0); Mean Corpuscular Volume 87.4 fL (80.0-100.0); Mean Platelet Volume 8.6 fL (9.4-12.3); Platelet Count 258 K/uL (130-400); RDW Coefficient of Variation 15.1 % (11.5-14.5); RDW Standard Deviation 48.3 fL (36.4-46.3); Red Blood Count 4.05 M/uL (3.93-5.22)
[2022-07-22 08:33] LABS: BUN Creatinine Ratio 21.5 (10-20); Calcium 9.3 mg/dl (8.5-10.1); Creatinine Clr Calc Pharmacy 75.8 ml/min; Est GFR (Non-African American) 86.2 ml/min; Potassium 3.8 mmol/L (3.5-5.1)
[2022-07-22] MEDS: FERROUS SULFATE 325 MG TAB PO SCH ×2 (09:06→20:04)
[2022-07-22] MEDS: FAMOTIDINE 40 MG TABLET PO SCH (09:06)
[2022-07-22] MEDS: valACYclovir HCL 500 MG TABLET PO SCH ×3 (09:06→20:07)
[2022-07-22] MEDS: APIXABAN 5 MG TABLET PO SCH ×2 (09:07→20:05)
[2022-07-22] MEDS: amLODIPine BESYLATE 5 MG TAB PO SCH (09:07)
[2022-07-22] MEDS: METOPROLOL TARTRATE 25 MG TAB PO SCH ×2 (09:07→20:05)
[2022-07-22] MEDS: FLUTICASONE/VILANTEROL 100/25MCG 14 PUFFS/INHALER INH SCH (09:07)
[2022-07-22] MEDS: ASPIRIN 81 MG ECTAB PO SCH (09:07)
--- NOTE | 2022-07-22 10:33 | XCELERA ---
[id number]
--- NOTE | 2022-07-22 11:02 | Cardiology Consultation ---
Date of Consultation July 22, 2022 Assessment & Plan (1) Non-ST elevation [place] (NSTEMI): (2) PAF (paroxysmal atrial fibrillation): (3) Herpes zoster: Plan The patient is clinically stable but in some discomfort. Her chest pain seems to be musculoskeletal and frankly I wonder if it is related to her outbreak of herpes zoster which can cause constitutional symptoms and myalgias. She is on tramadol as needed for pain. You may want to consider adding a nonsteroidal anti-inflammatory. History of Present Illness Attending Physician: Shama Harmon, DO History of Present Illness The patient presented to the emergency department with chest and upper back discomfort. Although her EKGs do not show acute changes she did have elevation in her cardiac troponin and she was taken to the heart lab where she was found to have nonobstructive CAD. The patient's discomfort started approximately a week ago. She does have a history of herpes zoster on her buttocks which is active at this time and may be contributing to her symptoms with myalgias and muscle aches. Her chest pain seems to be reproducible with palpation in the lower sternum as well as up along the clavicles. She denies shortness of breath orthopnea. Interestingly, her cardiac troponins did continue to elevate and are over 4000. Echocardiogram completed after cardiac catheterization indicates normal LV function and no wall motion abnormalities. Allergies Allergy/AdvReac Type Severity Reaction Status Date / Time capsaicin Allergy Intermediate elevated Verified 04/10/22 01:46 liver enzymes diclofenac Allergy Intermediate elevated Verified 04/10/22 01:46 liver enzymes NSAIDS (Non-Steroidal Allergy Intermediate ELEVATED Verified 04/10/22 01:46 Anti-Inflamma LIVER ENZYMES IN THE PAST Home Medications Medication Instructions Recorded Confirmed Type hydrochlorothiazide 25 mg tablet 25 mg PO QAM 11/29/18 07/21/22 History aspirin 81 mg tablet,delayed 81 mg PO HS 02/10/19 07/21/22 History release potassium chloride 10 mEq 10 meq PO QAM 02/10/19 07/21/22 History tablet,extended release acetaminophen 500 mg tablet 1,000 mg PO Q6H PRN Pain 04/04/21 07/21/22 History ascorbic acid (vitamin C) 500 mg 500 mg PO QAM 04/04/21 07/21/22 History tablet (Vitamin C) famotidine 40 mg tablet 40 mg PO QAM 04/04/21 07/21/22 History multivitamin with minerals 1 tab PO QAM 04/04/21 07/21/22 History apixaban 5 mg tablet (Eliquis) 5 mg PO BID #60 tabs 04/05/21 07/21/22 Rx calcium carbonate 500 mg calcium 500 mg PO QAM 04/10/22 07/21/22 History (1,250 mg) tablet metoprolol tartrate 25 mg tablet 37.5 mg PO AMPM 04/10/22 07/21/22 History nutritional supplement-fiber oral 1 ea PO DAILY 04/10/22 07/21/22 History liquid albuterol sulfate 90 mcg/actuation 2 puff inhalation Q6 PRN Cough 07/21/22 07/21/22 History aerosol inhaler amlodipine 5 mg tablet 5 mg PO QAM 07/21/22 07/21/22 History ferrous sulfate 325 mg (65 mg 325 mg PO AMPM 07/21/22 07/21/22 History iron) tablet (iron) fluticasone 250 mcg-salmeterol 50 1 ea inhalation AMHS 07/21/22 07/21/22 History mcg/dose blistr powdr for inhalation ondansetron HCl 4 mg tablet 4 mg PO Q8 PRN Nausea 07/21/22 07/21/22 History pravastatin 20 mg tablet 20 mg PO HS 07/21/22 07/21/22 History prednisone 10 mg tablet 10 mg PO UD 07/21/22 07/21/22 History trazodone 50 mg tablet 50 mg PO HS 07/21/22 07/21/22 History valacyclovir 1 gram tablet 1,000 mg PO TID 07/21/22 07/21/22 History Patient History Medical History Anemia HX Depression Diastolic dysfunction Herpes zoster Hyperlipidemia Hypertension Irritable bowel syndrome Kidney stones Kidney stones Migraine HX OF Osteoarthritis PAF (paroxysmal atrial fibrillation) Surgical History History of cataract surgery LEFT History of cholecystectomy History of colonoscopy History of esophagogastroduodenoscopy (EGD) History of hysterectomy History of lithotripsy History of tooth extraction History of total knee replacement RT/LEFT Family History Mother Family history of diabetes mellitus Social History Smoking Status: Never smoker Second Hand Exposure: No; Do You Dip or Chew Tobacco: No; Tobacco Cessation Education Requested by Patient: No Hx Alcohol Use: No Hx Substance Use: No Preferred Language: Khmer Communication Ability: Effective 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 All other 10 point review of systems are negative. Physical Exam Physical Exam: General: no acute distress and stated age Head: normocephalic, no masses, lesions, tenderness or abnormalities Eyes: conjunctiva are pink and non-injected, sclera clear Neck: supple, no adenopathy, no bruits, normal jugular venous pulse, no hepatojugular reflux Chest: normal shape and normal respiratory effort Lungs: clear to auscultation and percussion Cardiac Exam: - regular rate & rhythm, no murmurs gallops or rubs - normal S1, normal S2 Pulses: 2(+) throughout Abdomen: abdomen soft, non-tender, no abnormal masses and no hepatosplenomegaly Musculoskeletal: no gait disturbance, no joint inflammation, no deforming arthritis Extremities: no edema and no cyanosis Neuro: grossly normal exam Results & Data ([facility]) Vital Signs (Past 12 Hours) Vital Signs Temp Pulse Pulse Resp BP Pulse Ox O2 Del Method 07/22/22 08:00 36.6 C 107 H 18 151/85 H 92 Room Air 07/22/22 07:34 84 07/22/22 03:33 36.8 C 75 18 142/79 H 95 Room Air 07/21/22 23:14 73 123/72 Laboratory Results Laboratory Results - last 24 hr 07/21/22 07/21/22 07/21/22 10:30 10:30 10:30 WBC 13.31 H RBC 3.66 L Hgb 10.1 L Hct 31.3 L MCV 85.5 MCH 27.6 MCHC 32.3 RDW Std Deviation 47.0 H RDW Coeff of Leo 15.1 H Plt Count 260 MPV 8.9 L Immature Gran % (Auto) 1.4 Neut % (Auto) 81.5 Lymph % (Auto) 9.4 Overton % (Auto) 7.6 Eos % (Auto) 0.0 Baso % (Auto) 0.1 Neut # (Auto) 10.86 H Lymph # (Auto) 1.25 Overton # (Auto) 1.01 H Eos # (Auto) 0.00 Baso # (Auto) 0.01 Immature Gran # (Auto) 0.18 H PT 11.4 INR 1.1 APTT 27.7 PTT Ratio 1.0 Sodium 137 Potassium 3.6 Chloride 99 Carbon Dioxide 28 Anion Gap 10 BUN 19 Creatinine 0.72 Est Cr Clr Drug Dosing Not Reportable Est GFR ( Amer) 94.3 Est GFR (Non-Af Amer) 81.3 BUN/Creatinine Ratio 26.4 H Glucose 145 H Calcium 10.5 H Total Bilirubin 0.5 AST 18 ALT 13 Alkaline Phosphatase 56 Troponin I High Sens 47.1 H Total Protein 7.8 Albumin 3.8 Globulin 4.0 Albumin/Globulin Ratio 1.0 Lipase 15 SARS-CoV-2 (PCR) Hepatitis C Ab (EIA) Hep C Ab Signal/Cutoff Influenza Type A (PCR) Influenza Type B (PCR) RSV (RT-PCR) 07/21/22 07/21/22 07/21/22 11:20 12:39 14:31 WBC RBC Hgb Hct MCV MCH MCHC RDW Std Deviation RDW Coeff of Leo Plt Count MPV Immature Gran % (Auto) Neut % (Auto) Lymph % (Auto) Overton % (Auto) Eos % (Auto) Baso % (Auto) Neut # (Auto) Lymph # (Auto) Overton # (Auto) Eos # (Auto) Baso # (Auto) Immature Gran # (Auto) PT INR APTT PTT Ratio Sodium Potassium Chloride Carbon Dioxide Anion Gap BUN Creatinine Est Cr Clr Drug Dosing Est GFR ( Amer) Est GFR (Non-Af Amer) BUN/Creatinine Ratio Glucose Calcium Total Bilirubin AST ALT Alkaline Phosphatase Troponin I High Sens 760.9 H* D 1696.5 H* D Total Protein Albumin Globulin Albumin/Globulin Ratio Lipase SARS-CoV-2 (PCR) NEGATIVE Hepatitis C Ab (EIA) Hep C Ab Signal/Cutoff Influenza Type A (PCR) Negative Influenza Type B (PCR) Negative RSV (RT-PCR) Negative 12/18/22 12/18/22 12/18/22 00:45 07:39 07:39 WBC RBC Hgb Hct MCV MCH MCHC RDW Std Deviation RDW Coeff of Leo Plt Count MPV Immature Gran % (Auto) Neut % (Auto) Lymph % (Auto) Overton % (Auto) Eos % (Auto) Baso % (Auto) Neut # (Auto) Lymph # (Auto) Overton # (Auto) Eos # (Auto) Baso # (Auto) Immature Gran # (Auto) PT INR APTT PTT Ratio Sodium Potassium Chloride Carbon Dioxide Anion Gap BUN Creatinine Est Cr Clr Drug Dosing Est GFR ( Amer) Est GFR (Non-Af Amer) BUN/Creatinine Ratio Glucose Calcium Total Bilirubin AST ALT Alkaline Phosphatase Troponin I High Sens 4646.8 H* D 4675.7 H* Total Protein Albumin Globulin Albumin/Globulin Ratio Lipase SARS-CoV-2 (PCR) Hepatitis C Ab (EIA) Pending Hep C Ab Signal/Cutoff Pending Influenza Type A (PCR) Influenza Type B (PCR) RSV (RT-PCR) 07/22/22 07/22/22 07:39 07:39 WBC 13.70 H RBC 4.05 Hgb 11.1 L Hct 35.4 MCV 87.4 MCH 27.4 MCHC 31.4 L RDW Std Deviation 48.3 H RDW Coeff of Leo 15.1 H Plt Count 258 MPV 8.6 L Immature Gran % (Auto) Neut % (Auto) Lymph % (Auto) Overton % (Auto) Eos % (Auto) Baso % (Auto) Neut # (Auto) Lymph # (Auto) Overton # (Auto) Eos # (Auto) Baso # (Auto) Immature Gran # (Auto) PT INR APTT PTT Ratio Sodium 136 Potassium 3.8 Chloride 100 Carbon Dioxide 30 Anion Gap 6 BUN 14 Creatinine 0.65 Est Cr Clr Drug Dosing 75.8 Est GFR ( Amer) 100.0 Est GFR (Non-Af Amer) 86.2 BUN/Creatinine Ratio 21.5 H Glucose 88 Calcium 9.3 Total Bilirubin AST ALT Alkaline Phosphatase Troponin I High Sens Total Protein Albumin Globulin Albumin/Globulin Ratio Lipase SARS-CoV-2 (PCR) Hepatitis C Ab (EIA) Hep C Ab Signal/Cutoff Influenza Type A (PCR) Influenza Type B (PCR) RSV (RT-PCR) Medications Administered Current Inpatient Medications Acetaminophen (Acetaminophen 325 Mg Tab) 650 mg PO Q4H PRN PRN Reason: Pain or Fever Stop: 08/20/22 18:17 Last Admin: 07/21/22 18:46 Dose: 650 mg Amlodipine Besylate (Amlodipine Besylate 5 Mg Tab) 5 mg PO QAM [facility] Stop: 08/21/22 08:59 Last Admin: 07/22/22 09:07 Dose: 5 mg Apixaban (Apixaban 5 Mg Tablet) 5 mg PO BID [facility] Stop: 08/21/22 08:59 Last Admin: 07/22/22 09:07 Dose: 5 mg Aspirin (Aspirin 81 Mg Ectab) [facility] [place] Stop: 08/21/22 08:59 Last Admin: 07/22/22 09:07 Dose: 81 mg Famotidine (Famotidine 40 Mg Tablet) 40 mg PO QAM [facility] Stop: 08/21/22 08:59 Last Admin: 07/22/22 09:06 Dose: 40 mg Ferrous Sulfate (Ferrous Sulfate 325 Mg Tab) 325 mg PO BID [facility] Stop: 08/20/22 20:59 Last Admin: 07/22/22 09:06 Dose: 325 mg Fluticasone/Vilanterol (Fluticasone/Vilanterol 100/25mcg 14 Puffs/Inhaler) 1 puffs INH DAILY [facility] Stop: 08/21/22 08:59 Last Admin: 07/22/22 09:07 Dose: 1 puffs Metoprolol Tartrate (Metoprolol Tartrate 25 Mg Tab) 37.5 mg PO QAM [facility] Stop: 08/21/22 08:59 Last Admin: 07/22/22 09:07 Dose: 37.5 mg Metoprolol Tartrate (Metoprolol Tartrate 25 Mg Tab) 25 mg PO QPM [facility] Stop: 08/20/22 20:59 Last Admin: 07/21/22 20:14 Dose: 25 mg Ondansetron HCl (Ondansetron Inj 2 Mg/Ml 2 Ml Vial) 4 mg IV Q6H PRN PRN Reason: Nausea And Vomiting Stop: 08/20/22 17:27 Pravastatin Sodium (Pravastatin Sod 20 Mg Tab) 20 mg PO HS [facility] Stop: 08/20/22 20:59 Last Admin: 07/21/22 20:14 Dose: 20 mg Tramadol HCl (Tramadol Hcl 50 Mg Tablet) 25 - 50 mg PO Q4H PRN PRN Reason: Pain Stop: 08/20/22 21:31 Last Admin: 07/21/22 21:42 Dose: 50 mg Trazodone HCl (Trazodone Hcl 50 Mg Tab) 50 mg PO HS [facility] Stop: 08/20/22 20:59 Last Admin: 07/21/22 20:14 Dose: 50 mg Valacyclovir HCl (Valacyclovir Hcl 500 Mg Tablet) 1,000 mg PO TID [facility] Stop: 07/27/22 21:01 Last Admin: 07/22/22 09:06 Dose: 1,000 mg
[2022-07-22] MEDS: ACETAMINOPHEN 325 MG TAB PO PRN (12:39)
--- NOTE | 2022-07-22 13:13 | Hospitalist Progress Note ---
Date of Service July 22, 2022 Assessment & Plan (1) Non-ST elevation ID (NSTEMI): Plan: Presented from home with acute onset upper chest discomfort radiating into the back and both arms. This is still present today but to a lesser extent In the ED, EKG x [address] changes, patient received IV morphine and sublingual nitroglycerin. HS troponin continue to trend upward. With ongoing chest discomfort and rising troponin, patient was taken to the [facility] emerg[facility]. CTA chest unremarkable Cardiac cath showed nonobstructive CAD with 40% mid LAD stenosis -no intervention required Continue ASA, statin, beta-donya Resting echo revealed an EF of 60 to 65% with no significant valvulopathy. Right ventricular systolic pressure is elevated at 40 to 50 mm Hg. (2) PAF (paroxysmal atrial fibrillation): Plan: Remains in sinus rhythm, rate controlled on metoprolol, anticoagulated on Eliquis (3) Hypertension: Plan: Continue metoprolol and amlodipine Holding HCTZ 2/2 to dye load today - resume as renal functions allow. Will cont to hold for now. (4) Diastolic dysfunction: Plan: Echo 04/2021-EF 65 to 70%, grade 1 diastolic dysfunction Appears euvolemic (5) Herpes zoster: Plan: Continue valacyclovir and her rash symptoms are improved. Cont Valtrex for acute shingles infection. Isolation precautions. There is a possibility that her acute infection is causing myalgias described. Gave her one dose of toradol now and will watch for effect. Will also draw a CK. DVT prophylaxis On Eliquis Full Code Dispo-to home when improved in next couple of days. Shama Harmon DO [facility] Hospitalist Admission and Anticipated Discharge Date Admission Date: July 21, 2022 Subjective 77 yo F presented with acute chest and back pain. Cardiac catheterization revealed nonobstructive CAD. feels better in her chest but still has chest pain centrally and still reporting persistent upper middle back pain that is a squeezing quality Bilateral BP taken: 125/75-right arm, 133/75-left arm she is eating and has no nausea except for slightly with the valtrex less itching and pain in her glute where her shingles rash is still feels unwell generally denies a h/o heart murmur Review of Systems Review of Systems: All systems were reviewed and negative except as indicated above. Physical Exam Physical Exam: CONSTITUTIONAL: WNWD, vitals as above, NAD EYES: normal conjunctivae, no scleral icterus ENT: external ear and nose normal, MMM NECK: trachea midline RESPIRATORY: clear to auscultation bilaterally, no crackles, rales or wheezes, normal respiratory effort CARDIOVASCULAR: regular rate and rhythm, S1 and 2 heard without murmurs, gallops or rubs, no JVD, no peripheral edema CHEST: inspection of chest was normal GASTROINTESTINAL: soft, nontender, nondistended, no guarding MUSCULOSKELETAL: strength 5/5 throughout, head is normocephalic and atraumatic SKIN: warm and dry NEUROLOGIC: CN 2-12 grossly intact, no sensory deficit, normal cognition, normal speech, no tremor PSYCHIATRIC: alert cooperative and oriented to person, place and time. Euthymic mood, makes good eye contact, language grossly intact, recent and remote memory grossly intact. Results & Data Results & Data ([facility]) Vital Signs (Past 12 Hours) Vital Signs Temp Pulse Pulse Resp BP Pulse Ox O2 Del Method 07/22/22 08:00 36.6 C 107 H 18 151/85 H 92 Room Air 07/22/22 07:34 84 07/22/22 03:33 36.8 C 75 18 142/79 H 95 Room Air Laboratory Results Short CBC 07/22/22 Range/Units 07:39 WBC 13.70 H (4.8-10.8) K/ul Hgb 11.1 L (12.0-16.0) g/dl Hct 35.4 (34.1-44.9) % Plt Count 258 (130-400) K/uL BMP 07/22/22 07:39 Sodium 136 Potassium 3.8 Chloride 100 Carbon Dioxide 30 BUN 14 Creatinine 0.65 Glucose 88 Calcium 9.3 Medications Administered Current Inpatient Medications Acetaminophen (Acetaminophen 325 Mg Tab) 650 mg PO Q4H PRN PRN Reason: Pain or Fever Stop: 08/20/22 18:17 Last Admin: 07/22/22 12:39 Dose: 650 mg Amlodipine Besylate (Amlodipine Besylate 5 Mg Tab) 5 mg PO QAM [facility] Stop: 08/21/22 08:59 Last Admin: 07/22/22 09:07 Dose: 5 mg Apixaban (Apixaban 5 Mg Tablet) 5 mg PO BID [facility] Stop: 08/21/22 08:59 Last Admin: 12/18/22 09:07 Dose: 5 mg Aspirin (Aspirin 81 Mg Ectab) 81 mg PO QAM [facility] Stop: 08/21/22 08:59 Last Admin: 07/22/22 09:07 Dose: 81 mg Famotidine (Famotidine 40 Mg Tablet) 40 mg PO QAM [facility] Stop: 08/21/22 08:59 Last Admin: 07/22/22 09:06 Dose: 40 mg Ferrous Sulfate (Ferrous Sulfate 325 Mg Tab) 325 mg PO BID [facility] Stop: 08/20/22 20:59 Last Admin: 07/22/22 09:06 Dose: 325 mg Fluticasone/Vilanterol (Fluticasone/Vilanterol 100/25mcg 14 Puffs/Inhaler) 1 puffs INH DAILY [facility] Stop: 08/21/22 08:59 Last Admin: 07/22/22 09:07 Dose: 1 puffs Metoprolol Tartrate (Metoprolol Tartrate 25 Mg Tab) 37.5 mg PO QAM [facility] Stop: 08/21/22 08:59 Last Admin: 07/22/22 09:07 Dose: 37.5 mg Metoprolol Tartrate (Metoprolol Tartrate 25 Mg Tab) 25 mg PO QPM [facility] Stop: 08/20/22 20:59 Last Admin: 07/21/22 20:14 Dose: 25 mg Ondansetron HCl (Ondansetron Inj 2 Mg/Ml 2 Ml Vial) 4 mg IV Q6H PRN PRN Reason: Nausea And Vomiting Stop: 08/20/22 17:27 Pravastatin Sodium (Pravastatin Sod 20 Mg Tab) 20 mg PO [facility] Stop: 08/20/22 20:59 Last Admin: 07/21/22 20:14 Dose: 20 mg Tramadol HCl (Tramadol Hcl 50 Mg Tablet) 25 - 50 mg PO Q4H PRN PRN Reason: Pain Stop: 08/20/22 21:31 Last Admin: 07/21/22 21:42 Dose: 50 mg Trazodone HCl (Trazodone Hcl 50 Mg Tab) 50 mg PO HS [facility] Stop: 08/20/22 20:59 Last Admin: 07/21/22 20:14 Dose: 50 mg Valacyclovir HCl (Valacyclovir Hcl 500 Mg Tablet) 1,000 mg PO TID [facility] Stop: 07/27/22 21:01 Last Admin: 07/22/22 09:06 Dose: 1,000 mg
[2022-07-22] MEDS ORDERED: KETOROLAC TROMETHAMINE 15 MG/ML VIAL IV ONE (13:54)
[2022-07-22] MEDS: PRAVASTATIN SOD 20 MG TAB PO SCH (20:04)
[2022-07-22] MEDS: traZODone HCL 50 MG TAB PO SCH (20:04)
[2022-07-22] MEDS: POLYETHYLENE (MIRALAX) 17 GM PACK PO PRN (21:14)
--- NOTE | 2022-07-22 22:09 | Electrocardiogram Report ---
Test Reason : Blood Pressure : / mmHG Vent. Rate : 078 BPM Atrial Rate : 078 BPM P-R Int : 000 ms QRS Dur : 100 ms QT Int : 402 ms P-R-T Axes : 000 001 047 degrees QTc Int : 458 ms Sinus rhythm Minimal voltage criteria for LVH, may be normal variant Abnormal ECG When compared with ECG of 17-APR-2021 08:09, No significant change Confirmed by Bryan Damon ([id number]) on 07/22/2022 10:08:47 PM Referred By: REFERRED SELF Confirmed By:Bryan Damon
--- NOTE | 2022-07-22 22:27 | Electrocardiogram Report ---
Test Reason : Blood Pressure : / mmHG Vent. Rate : 076 BPM Atrial Rate : 076 BPM P-R Int : 134 ms QRS Dur : 112 ms QT Int : 432 ms P-R-T Axes : 009 -04 039 degrees QTc Int : 486 ms Poor data quality, interpretation may be adversely affected Normal sinus rhythm Moderate voltage criteria for LVH, may be normal variant Borderline ECG When compared with ECG of 21-JUL-2022 10:25, (unconfirmed) No significant change Confirmed by Bryan Damon ([id number]) on 07/22/2022 10:27:03 PM Referred By: REFERRED SELF Confirmed By:Bryan Damon
--- NOTE | 2022-07-23 05:22 | Electrocardiogram Report ---
Test Reason : Blood Pressure : / mmHG Vent. Rate : 060 BPM Atrial Rate : 060 BPM P-R Int : 166 ms QRS Dur : 098 ms QT Int : 428 ms P-R-T Axes : 097 -04 030 degrees QTc Int : 428 ms Poor data quality, interpretation may be adversely affected Normal sinus rhythm with sinus arrhythmia Minimal voltage criteria for LVH, may be normal variant Borderline ECG When compared with ECG of 21-JUL-2022 13:35, (unconfirmed) No significant change Confirmed by Bryan Damon ([id number]) on 07/23/2022 5:21:44 AM Referred By: REFERRED SELF Confirmed By:Bryan Damon
--- NOTE | 2022-07-23 05:57 | Electrocardiogram Report ---
Test Reason : Blood Pressure : / mmHG Vent. Rate : 087 BPM Atrial Rate : 087 BPM P-R Int : 142 ms QRS Dur : 092 ms QT Int : 384 ms P-R-T Axes : 046 018 055 degrees QTc Int : 462 ms Normal sinus rhythm Normal ECG When compared with ECG of 21-JUL-2022 15:45, (unconfirmed) No significant change was found Confirmed by Bryan Damon ([id number]) on 07/23/2022 5:57:16 AM Referred By: REFERRED SELF Confirmed By:Bryan Damon
[2022-07-23] MEDS: valACYclovir HCL 500 MG TABLET PO SCH ×3 (08:30→21:07)
[2022-07-23] MEDS: POLYETHYLENE (MIRALAX) 17 GM PACK PO PRN (08:30)
[2022-07-23] MEDS: amLODIPine BESYLATE 5 MG TAB PO SCH (08:30)
[2022-07-23] MEDS: ASPIRIN 81 MG ECTAB PO SCH (08:31)
[2022-07-23] MEDS: FERROUS SULFATE 325 MG TAB PO SCH ×2 (08:31→21:06)
[2022-07-23] MEDS: FAMOTIDINE 40 MG TABLET PO SCH (08:31)
[2022-07-23] MEDS: APIXABAN 5 MG TABLET PO SCH ×2 (08:32→21:06)
[2022-07-23] MEDS: METOPROLOL TARTRATE 25 MG TAB PO SCH ×2 (08:32→21:06)
[2022-07-23] MEDS: FLUTICASONE/VILANTEROL 100/25MCG 14 PUFFS/INHALER INH SCH (08:35)
--- NOTE | 2022-07-23 10:59 | Cardiology Progress Note ---
Date of Service July 23, 2022 Assessment & Plan (1) Non-ST elevation [place] (NSTEMI): (2) PAF (paroxysmal atrial fibrillation): (3) Herpes zoster: Plan The patient's overall discomfort including her chest and upper back pain are improving. I cannot explain the elevation in her high-sensitivity cardiac troponins. The cardiac catheterization showed nonobstructive disease. I reviewed the angiograms myself and agree. Her echocardiogram also failed to show any evidence of pericardial effusion or suggestion of a pericarditis or myocarditis. No cardiac rub by auscultation. At this point I would continue current treatment. No additional cardiac studies at this time. Admission and Anticipated Discharge Date Admission Date: July 21, 2022 Subjective The patient states that her itching and discomfort from her shingles is improving. Her chest and upper back discomfort is also improved. She denies shortness of breath. Review of Systems Review of Systems: Review of Systems: See HPI for pertinent positives. All other 10 point review of systems are negative. Physical Exam Physical Exam: General: no acute distress and stated age Head: normocephalic, no masses, lesions, tenderness or abnormalities Eyes: conjunctiva are pink and non-injected, sclera clear Neck: supple, no adenopathy, no bruits, normal jugular venous pulse, no hepatojugular reflux Chest: normal shape and normal respiratory effort Lungs: clear to auscultation and percussion Cardiac Exam: - regular rate & rhythm, no murmurs gallops or rubs - normal S1, normal S2 Pulses: 2(+) throughout Abdomen: abdomen soft, non-tender, no abnormal masses and no hepatosplenomegaly Musculoskeletal: no gait disturbance, no joint inflammation, no deforming arthritis Extremities: no edema and no cyanosis Neuro: grossly normal exam Results & Data ([facility]) Vital Signs (Past 12 Hours) Vital Signs Temp Pulse Pulse Resp BP Pulse Ox O2 Del Method 07/23/22 08:28 37.0 C 101 H 20 110/69 92 Room Air 07/23/22 03:14 37.3 C 107 H 18 135/74 90 Room Air 07/22/22 23:36 72 Laboratory Results Laboratory Results - last 24 hr 07/22/22 07/22/22 13:09 13:09 Total Creatine Kinase 57 Troponin I High Sens 2710.5 H* D Medications Administered Current Inpatient Medications Acetaminophen (Acetaminophen 325 Mg Tab) 650 mg PO Q4H PRN PRN Reason: Pain or Fever Stop: 08/20/22 18:17 Last Admin: 07/22/22 12:39 Dose: 650 mg Amlodipine Besylate (Amlodipine Besylate 5 Mg Tab) 5 mg PO QAM [facility] Stop: 08/21/22 08:59 Last Admin: 07/23/22 08:30 Dose: 5 mg Apixaban (Apixaban 5 Mg Tablet) 5 mg PO BID [facility] Stop: 08/21/22 08:59 Last Admin: 07/23/22 08:32 Dose: 5 mg Aspirin (Aspirin 81 Mg Ectab) 81 mg PO [facility] Stop: 08/21/22 08:59 Last Admin: 07/23/22 08:31 Dose: 81 mg Famotidine (Famotidine 40 Mg Tablet) [facility] Stop: 08/21/22 08:59 Last Admin: 07/23/22 08:31 Dose: 40 mg Ferrous Sulfate (Ferrous Sulfate 325 Mg Tab) 325 mg PO BID [facility] Stop: 08/20/22 20:59 Last Admin: 07/23/22 08:31 Dose: 325 mg Fluticasone/Vilanterol (Fluticasone/Vilanterol 100/25mcg 14 Puffs/Inhaler) 1 puffs INH DAILY [facility] Stop: 08/21/22 08:59 Last Admin: 07/23/22 08:35 Dose: 1 puffs Metoprolol Tartrate (Metoprolol Tartrate 25 Mg Tab) 37.5 mg PO QAM [facility] Stop: 08/21/22 08:59 Last Admin: 07/23/22 08:32 Dose: 37.5 mg Metoprolol Tartrate (Metoprolol Tartrate 25 Mg Tab) 25 mg PO QPM [facility] Stop: 08/20/22 20:59 Last Admin: 07/22/22 20:05 Dose: 25 mg Ondansetron HCl (Ondansetron Inj 2 Mg/Ml 2 Ml Vial) 4 mg IV Q6H PRN PRN Reason: Nausea And Vomiting Stop: 08/20/22 17:27 Polyethylene Glycol (Polyethylene (Miralax) 17 Gm Pack) 17 gm PO DAILY PRN PRN Reason: Constipation Stop: 08/21/22 20:42 Last Admin: 07/23/22 08:30 Dose: 17 gm Pravastatin Sodium (Pravastatin Sod 20 Mg Tab) 20 mg PO HS [facility] Stop: 08/20/22 20:59 Last Admin: 07/22/22 20:04 Dose: 20 mg Tramadol HCl (Tramadol Hcl 50 Mg Tablet) 25 - 50 mg PO Q4H PRN PRN Reason: Pain Stop: 08/20/22 21:31 Last Admin: 07/21/22 21:42 Dose: 50 mg Trazodone HCl (Trazodone Hcl 50 Mg Tab) 50 mg PO HS [facility] Stop: 08/20/22 20:59 Last Admin: 07/22/22 20:04 Dose: 50 mg Valacyclovir HCl (Valacyclovir Hcl 500 Mg Tablet) 1,000 mg PO TID [facility] Stop: 07/27/22 21:01 Last Admin: 07/23/22 08:30 Dose: 1,000 mg
--- NOTE | 2022-07-23 17:27 | Hospitalist Progress Note ---
Date of Service July 23, 2022 Assessment & Plan (1) Non-ST elevation [place] (NSTEMI): Plan: Presented from home with acute onset upper chest discomfort radiating into the back and both arms. This is still present today but to a lesser extent In the ED, EKG x [address] changes, patient received IV morphine and sublingual nitroglycerin. HS troponin continue to trend upward. With ongoing chest discomfort and rising troponin, patient was taken to the [facility] emergently. CTA chest unremarkable Cardiac cath showed nonobstructive CAD with 40% mid LAD stenosis -no intervention required Continue ASA, statin, beta-donya Resting echo revealed an EF of 60 to 65% with no significant valvulopathy. Right ventricular systolic pressure is elevated at 40 to 50 mm Hg. This event does not appear to be related to an acute coronary syndrome and may be more consistent with a side effect of her zoster infection. She was notably better with osme toradol. (2) PAF (paroxysmal atrial fibrillation): Plan: Remains in sinus rhythm, rate controlled on metoprolol, anticoagulated on Eliquis (3) Hypertension: Plan: Continue metoprolol and amlodipine Holding HCTZ 2/2 to dye load today - resume as renal functions allow. Will cont to hold for now. (4) Diastolic dysfunction: Plan: Echo 04/2021-EF 65 to 70%, grade 1 diastolic dysfunction Appears euvolemic (5) Herpes zoster: Plan: Continue valacyclovir and her rash symptoms are improved. Cont Valtrex for acute shingles infection. Isolation precautions. There is a possibility that her acute infection is causing myalgias described. Improved with toradol that was given and CK is normal. DVT prophylaxis On Eliquis Full Code Dispo-to home when improved in next couple of days. Shama Harmon DO [facility] [address] Hospitalist Admission and Anticipated Discharge Date Admission Date: July 21, 2022 Subjective The patient states that her itching and discomfort from her shingles is improving. Her chest and upper back discomfort is also improved. She denies shortness of breath. Review of Systems Review of Systems: All systems were reviewed and negative except as indicated above. Physical Exam Physical Exam: CONSTITUTIONAL: WNWD, vitals as above, NAD EYES: normal conjunctivae, no scleral icterus ENT: external ear and nose normal, MMM NECK: trachea midline RESPIRATORY: clear to auscultation bilaterally, no crackles, rales or wheezes, normal respiratory effort CARDIOVASCULAR: regular rate and rhythm, S1 and 2 heard without murmurs, gallops or rubs, no JVD, no peripheral edema CHEST: inspection of chest was normal GASTROINTESTINAL: soft, nontender, nondistended, no guarding MUSCULOSKELETAL: strength 5/5 throughout, head is normocephalic and atraumatic SKIN: warm and dry NEUROLOGIC: CN 2-12 grossly intact, no sensory deficit, normal cognition, normal speech, no tremor PSYCHIATRIC: alert cooperative and oriented to person, place and time. Euthymic mood, makes good eye contact, language grossly intact, recent and remote memory grossly intact. Results & Data Results & Data ([facility]) Vital Signs (Past 12 Hours) Vital Signs Temp Pulse Resp BP Pulse Ox O2 Del Method 07/23/22 16:14 36.9 C 87 19 111/66 94 Room Air 07/23/22 11:09 36.7 C 75 20 115/70 94 Room Air 07/23/22 08:28 37.0 C 101 H 20 110/69 92 Room Air Laboratory Results Cardiac Enzymes 07/22/22 Range/Units 13:09 Total Creatine Kinase 57 (26-192) U/L Medications Administered Current Inpatient Medications Acetaminophen (Acetaminophen 325 Mg Tab) 650 mg PO Q4H PRN PRN Reason: Pain or Fever Stop: 08/20/22 18:17 Last Admin: 07/22/22 12:39 Dose: 650 mg Amlodipine Besylate (Amlodipine Besylate 5 Mg Tab) [facility] Stop: 08/21/22 08:59 Last Admin: 07/23/22 08:30 Dose: 5 mg Apixaban (Apixaban 5 Mg Tablet) 5 mg PO BID [facility] Stop: 08/21/22 08:59 Last Admin: 07/23/22 08:32 Dose: 5 mg Aspirin (Aspirin 81 Mg Ectab) [facility] [place] Stop: 08/21/22 08:59 Last Admin: 07/23/22 08:31 Dose: 81 mg Famotidine (Famotidine 40 Mg Tablet) 40 mg PO QAM [facility] Stop: 08/21/22 08:59 Last Admin: 07/23/22 08:31 Dose: 40 mg Ferrous Sulfate (Ferrous Sulfate 325 Mg Tab) 325 mg PO BID [facility] Stop: 08/20/22 20:59 Last Admin: 07/23/22 08:31 Dose: 325 mg Fluticasone/Vilanterol (Fluticasone/Vilanterol 100/25mcg 14 Puffs/Inhaler) 1 puffs INH DAILY [facility] Stop: 08/21/22 08:59 Last Admin: 07/23/22 08:35 Dose: 1 puffs Metoprolol Tartrate (Metoprolol Tartrate 25 Mg Tab) 37.5 mg PO QAM [facility] Stop: 08/21/22 08:59 Last Admin: 07/23/22 08:32 Dose: 37.5 mg Metoprolol Tartrate (Metoprolol Tartrate 25 Mg Tab) 25 mg PO QPM [facility] Stop: 08/20/22 20:59 Last Admin: 07/22/22 20:05 Dose: 25 mg Ondansetron HCl (Ondansetron Inj 2 Mg/Ml 2 Ml Vial) 4 mg IV Q6H PRN PRN Reason: Nausea And Vomiting Stop: 08/20/22 17:27 Polyethylene Glycol (Polyethylene (Miralax) 17 Gm Pack) 17 gm PO DAILY PRN PRN Reason: Constipation Stop: 08/21/22 20:42 Last Admin: 07/23/22 08:30 Dose: 17 gm Pravastatin Sodium (Pravastatin Sod 20 Mg Tab) 20 mg PO HS [facility] Stop: 08/20/22 20:59 Last Admin: 07/22/22 20:04 Dose: 20 mg Tramadol HCl (Tramadol Hcl 50 Mg Tablet) 25 - 50 mg PO Q4H PRN PRN Reason: Pain Stop: 08/20/22 21:31 Last Admin: 07/21/22 21:42 Dose: 50 mg Trazodone HCl (Trazodone Hcl 50 Mg Tab) 50 mg PO HS [facility] Stop: 08/20/22 20:59 Last Admin: 07/22/22 20:04 Dose: 50 mg Valacyclovir HCl (Valacyclovir Hcl 500 Mg Tablet) 1,000 mg PO TID [facility] Stop: 07/27/22 21:01 Last Admin: 07/23/22 13:44 Dose: 1,000 mg
[2022-07-23] MEDS: traZODone HCL 50 MG TAB PO SCH (21:07)
[2022-07-23] MEDS: PRAVASTATIN SOD 20 MG TAB PO SCH (21:07)
[2022-07-24] MEDS: APIXABAN 5 MG TABLET PO SCH (08:47)
[2022-07-24] MEDS: ASPIRIN 81 MG ECTAB PO SCH (08:47)
[2022-07-24] MEDS: amLODIPine BESYLATE 5 MG TAB PO SCH (08:47)
[2022-07-24] MEDS: FERROUS SULFATE 325 MG TAB PO SCH (08:47)
[2022-07-24] MEDS: FAMOTIDINE 40 MG TABLET PO SCH (08:47)
[2022-07-24] MEDS: METOPROLOL TARTRATE 25 MG TAB PO SCH (08:48)
[2022-07-24] MEDS: valACYclovir HCL 500 MG TABLET PO SCH ×2 (08:48→14:16)
[2022-07-24] MEDS: FLUTICASONE/VILANTEROL 100/25MCG 14 PUFFS/INHALER INH SCH (08:49)
[2022-07-24 09:01] LABS: Hematocrit (blood only) 30.9 % (34.1-44.9); Hemoglobin 9.9 g/dl (12.0-16.0); Mean Corpuscular Hemoglobin 27.7 pg (25.0-34.0); Mean Corpuscular Volume 86.3 fL (80.0-100.0); Mean Platelet Volume 8.4 fL (9.4-12.3); Platelet Count 221 K/uL (130-400); RDW Coefficient of Variation 15.5 % (11.5-14.5); RDW Standard Deviation 48.3 fL (36.4-46.3); Red Blood Count 3.58 M/uL (3.93-5.22); White Blood Count 11.35 K/ul (4.8-10.8)
[2022-07-24 09:32] LABS: Calcium 8.7 mg/dl (8.5-10.1); Creatinine Clr Calc Pharmacy 78.9 ml/min; Est GFR (African American) 101.5 ml/min; Est GFR (Non-African American) 87.6 ml/min; Potassium 3.8 mmol/L (3.5-5.1)
--- NOTE | 2022-07-24 11:11 | Cardiology Progress Note ---
Date of Service July 24, 2022 Assessment & Plan (1) Non-ST elevation [place] (NSTEMI): (2) PAF (paroxysmal atrial fibrillation): (3) Herpes zoster: Plan At this point the patient is clinically stable and doing well. No additional testing or treatment is indicated. I believe she can be discharged when the hospitalist group feels she is ready. Admission and Anticipated Discharge Date Admission Date: July 21, 2022 Subjective The patient had an uneventful night. Her discomfort and pain has completely resolved. Review of Systems Review of Systems: Review of Systems: See HPI for pertinent positives. All other 10 point review of systems are negative. Physical Exam Physical Exam: General: no acute distress and stated age Head: normocephalic, no masses, lesions, tenderness or abnormalities Eyes: conjunctiva are pink and non-injected, sclera clear Neck: supple, no adenopathy, no bruits, normal jugular venous pulse, no hepatojugular reflux Chest: normal shape and normal respiratory effort Lungs: clear to auscultation and percussion Cardiac Exam: - regular rate & rhythm, no murmurs gallops or rubs - normal S1, normal S2 Pulses: 2(+) throughout Abdomen: abdomen soft, non-tender, no abnormal masses and no hepatosplenomegaly Musculoskeletal: no gait disturbance, no joint inflammation, no deforming arthritis Extremities: no edema and no cyanosis Neuro: grossly normal exam Results & Data ([facility]) Vital Signs (Past 12 Hours) Vital Signs Temp Pulse Pulse Resp BP Pulse Ox O2 Del Method 07/24/22 07:15 36.9 C 83 17 130/78 92 Room Air 07/24/22 02:57 37.6 C H 86 16 146/81 H 93 Room Air 07/23/22 23:33 87 Laboratory Results Laboratory Results - last 24 hr 07/24/22 07/24/22 08:43 08:43 WBC 11.35 H RBC 3.58 L Hgb 9.9 L Hct 30.9 L MCV 86.3 MCH 27.7 MCHC 32.0 RDW Std Deviation 48.3 H RDW Coeff of Leo 15.5 H Plt Count 221 MPV 8.4 L Sodium 135 L Potassium 3.8 Chloride 102 Carbon Dioxide 28 Anion Gap 5 BUN 13 Creatinine 0.62 Est Cr Clr Drug Dosing 78.9 Est GFR ( Amer) 101.5 Est GFR (Non-Af Amer) 87.6 BUN/Creatinine Ratio 21.0 H Glucose 133 H Calcium 8.7 Medications Administered Current Inpatient Medications Acetaminophen (Acetaminophen 325 Mg Tab) 650 mg PO Q4H PRN PRN Reason: Pain or Fever Stop: 08/20/22 18:17 Last Admin: 07/22/22 12:39 Dose: 650 mg Amlodipine Besylate (Amlodipine Besylate 5 Mg Tab) 5 mg PO QAM [facility] Stop: 08/21/22 08:59 Last Admin: 07/24/22 08:47 Dose: 5 mg Apixaban (Apixaban 5 Mg Tablet) 5 mg PO BID [facility] Stop: 08/21/22 08:59 Last Admin: 07/24/22 08:47 Dose: 5 mg Aspirin (Aspirin 81 Mg Ectab) 81 mg PO QAM [facility] Stop: 08/21/22 08:59 Last Admin: 07/24/22 08:47 Dose: 81 mg Famotidine (Famotidine 40 Mg Tablet) 40 mg PO QAM [facility] Stop: 08/21/22 08:59 Last Admin: 07/24/22 08:47 Dose: 40 mg Ferrous Sulfate (Ferrous Sulfate 325 Mg Tab) 325 mg PO BID [facility] Stop: 08/20/22 20:59 Last Admin: 07/24/22 08:47 Dose: 325 mg Fluticasone/Vilanterol (Fluticasone/Vilanterol 100/25mcg 14 Puffs/Inhaler) 1 puffs INH DAILY [facility] Stop: 08/21/22 08:59 Last Admin: 07/24/22 08:49 Dose: 1 puffs Metoprolol Tartrate (Metoprolol Tartrate 25 Mg Tab) 37.5 mg PO QAM [facility] Stop: 08/21/22 08:59 Last Admin: 07/24/22 08:48 Dose: 37.5 mg Metoprolol Tartrate (Metoprolol Tartrate 25 Mg Tab) 25 mg PO QPM [facility] Stop: 08/20/22 20:59 Last Admin: 07/23/22 21:06 Dose: 25 mg Ondansetron HCl (Ondansetron Inj 2 Mg/Ml 2 Ml Vial) 4 mg IV Q6H PRN PRN Reason: Nausea And Vomiting Stop: 08/20/22 17:27 Polyethylene Glycol (Polyethylene (Miralax) 17 Gm Pack) 17 gm PO DAILY PRN PRN Reason: Constipation Stop: 08/21/22 20:42 Last Admin: 07/23/22 08:30 Dose: 17 gm Pravastatin Sodium (Pravastatin Sod 20 Mg Tab) 20 mg PO HS [facility] Stop: 08/20/22 20:59 Last Admin: 07/23/22 21:07 Dose: 20 mg Tramadol HCl (Tramadol Hcl 50 Mg Tablet) 25 - 50 mg PO Q4H PRN PRN Reason: Pain Stop: 08/20/22 21:31 Last Admin: 07/21/22 21:42 Dose: 50 mg Trazodone HCl (Trazodone Hcl 50 Mg Tab) 50 mg PO HS [facility] Stop: 08/20/22 20:59 Last Admin: 07/23/22 21:07 Dose: 50 mg Valacyclovir HCl (Valacyclovir Hcl 500 Mg Tablet) 1,000 mg PO TID [facility] Stop: 07/27/22 21:01 Last Admin: 07/24/22 08:48 Dose: 1,000 mg
--- NOTE | 2022-07-24 14:40 | Discharge Summary ---
Discharge Summary Date of Service ADMIT: 07/21/2022 DISCHARGE: 07/24/2022 Notes For Next Care Provider Cardiac cath revealed non-obstructive disease Her symptoms may have been related to Zoster infection, and she felt better with Valtrex treatment each day She reported resolution of chest pain or pressure symptoms prior to discharge from the hospital. Medication Changes From Visit No changes Admission HPI Per Admitting Provider 77 year old female with PMH dyslipidemia, paroxysmal afib, HTN, diastolic dysfunction, IBS, GERD, and other problems listed below who presents to the ED for evaluation of chest pain. Patient reports that this morning around 9 AM, she had sudden onset of upper chest discomfort that was radiating around to her back and into both upper arms. Patient describes the sensation as a squeezing feeling. Patient rates her discomfort as a #9/10. Patient also had associated nausea with one episode of vomiting and mild diaphoresis. No lightheadedness, dizziness, syncopal event. Patient was recently diagnosed with shingles and is currently on valacyclovir. Patient also has been following with PCP for ongoing cough for the past several months. She was recently started on an inhaler and a prednisone taper. Patient is on Eliquis for paroxysmal atrial fibrillation and reports some mild rectal bleeding a couple of weeks ago. Patient reports a history of hemorrhoids. Patient states that she held her Eliquis for a few days and bleeding subsided. Patient denies fevers and chills. No urinary symptoms. In the ED, patient is hemodynamically stable, EKG x [address] changes. HS troponin 47.1 --> 760.9 --> 1696.5. Patient received IV morphine and topical nitroglycerin and continues to have mild discomfort. Given ongoing chest discomfort and rising troponin, patient was taken to the [facility] emergently. Admission Exam Per Admitting Provider Constitutional: WD/WN, vitals as above Eyes: PERRL, conjunctivae normal, anicteric sclerae ENMT: external ear and nose normal, oropharynx normal Respiratory: normal respiratory effort, lungs clear to auscultation Cardiovascular: Rate/Rhythm: regular rate and regular rhythm Vessels: normal peripheral pulses Extremities: no edema Gastrointestinal (Abdomen): normal bowel sounds, soft, nontender, no hepatosplenomegaly Musculoskeletal: no cyanosis or clubbing, extremities motor strength 5/5 Neurologic: PERRL, EOMI, accommodation nl, no face palsy, no dysarthria Psychiatric: A+Ox3, euthymic affect Principal Dx & Hospital Course #1 = Principal Diagnosis (1) Non-ST elevation [place] (NSTEMI): (2) PAF (paroxysmal atrial fibrillation): (3) Hypertension: (4) Diastolic dysfunction: (5) Herpes zoster: Plan 77 yo F presents with chest discomfort radiating into her back, both arms and both legs. She was recently diagnosed with zoster infection and started on Valtrex. In the ER, an EKG revealed no acute ST changes, and she received sublingual nitroglycerin and morphine without resolution of the discomfort. Her troponin trended up and because of possible developing NSTEMI, she was taken to the [facility]. Nonobstructive CAD was found and she was admitted to medicine service with cardiology following. As she continued with the valacyclovir she improved. CK was negative. With continued supportive care efforts, she felt better and was able to go home in stable condition. She was mentating and ambulating at her baseline on discharge and was hemodynamically stable with a resolution of her initial discomfort. Her original symptoms were thought secondary to her zoster infection. Close primary care follow-up was recommended. Discharge Exam CONSTITUTIONAL: WNWD, vitals as above, NAD EYES: normal conjunctivae, no scleral icterus ENT: external ear and nose normal, MMM NECK: trachea midline RESPIRATORY: clear to auscultation bilaterally, no crackles, rales or wheezes, normal respiratory effort CARDIOVASCULAR: regular rate and rhythm, S1 and 2 heard without murmurs, gallops or rubs, no JVD, no peripheral edema CHEST: inspection of chest was normal GASTROINTESTINAL: soft, nontender, nondistended, no guarding MUSCULOSKELETAL: strength 5/5 throughout, head is normocephalic and atraumatic SKIN: warm and dry NEUROLOGIC: CN 2-12 grossly intact, no sensory deficit, normal cognition, normal speech, no tremor PSYCHIATRIC: alert cooperative and oriented to person, place and time. Euthymic mood, makes good eye contact, language grossly intact, recent and remote memory grossly intact. Updated Medication List Medication Instructions Recorded Confirmed Type hydrochlorothiazide 25 mg tablet 25 mg PO QAM 11/29/18 07/25/22 History aspirin 81 mg tablet,delayed 81 mg PO HS 02/10/19 07/25/22 History release potassium chloride 10 mEq 10 meq PO QAM 02/10/19 07/25/22 History tablet,extended release acetaminophen 500 mg tablet 1,000 mg PO Q6H PRN Pain 04/04/21 07/25/22 History ascorbic acid (vitamin C) 500 mg 500 mg PO QAM 04/04/21 07/25/22 History tablet (Vitamin C) famotidine 40 mg tablet 40 mg PO QAM 04/04/21 07/25/22 History multivitamin with minerals 1 tab PO QAM 04/04/21 07/25/22 History apixaban 5 mg tablet (Eliquis) 5 mg PO BID #60 tabs 04/05/21 07/25/22 Rx calcium carbonate 500 mg calcium 500 mg PO QAM 04/10/22 07/25/22 History (1,250 mg) tablet metoprolol tartrate 25 mg tablet 37.5 mg PO AMPM 04/10/22 07/25/22 History nutritional supplement-fiber oral 1 ea PO DAILY 04/10/22 07/25/22 History liquid albuterol sulfate 90 mcg/actuation 2 puff inhalation Q6 PRN Cough 07/21/22 07/25/22 History aerosol inhaler amlodipine 5 mg tablet 5 mg PO QAM 07/21/22 07/25/22 History ferrous sulfate 325 mg (65 mg 325 mg PO AMPM 07/21/22 07/25/22 History iron) tablet (iron) fluticasone 250 mcg-salmeterol 50 1 ea inhalation AMHS 07/21/22 07/25/22 History mcg/dose blistr powdr for inhalation ondansetron HCl 4 mg tablet 4 mg PO Q8 PRN Nausea 07/21/22 07/25/22 History pravastatin 20 mg tablet 20 mg PO HS 07/21/22 07/25/22 History prednisone 10 mg tablet 10 mg PO UD 07/21/22 07/25/22 History trazodone 50 mg tablet 50 mg PO HS 07/21/22 07/25/22 History valacyclovir 1 gram tablet 1,000 mg PO TID 07/21/22 07/25/22 History Hospital Stay Data Consultations 07/21/22 14:07 ED Decision to Admit Stat 07/21/22 18:18 Consult Cardiology Routine Procedures Performed Operation Date: 07/21/22 16:30 Actual Procedures s Cineradiography w/Routine Exam - Ezra Watkins MD p Cath, Left with Cors and Vent - Ezra Watkins MD s IVUS Coronary Single Vessel - Ezra Watkins MD Diagnostic Imagining Performed 07/21/22 10:54 CT angio chest PE protocol Stat 07/21/22 16:04 CL Cath Imgs for PACS use only Stat 07/21/22 17:12 CL IVUS Coronary Single Vessel Stat Pending Results Patient Have Any Pending Studies at Discharge: No Discharge Instructions Given to Patient (Per Discharging Provider) Please take all medications as instructed on discharge list below. Please take the remaining Valtrex to complete a 7 day course for your shingles infection. It is recommended that you followup with your primary care physician at the date and time above. This will be important to touch base after returning home and ensure there are no return of symptoms, and that you are doing well. It was a pleasure taking care of you! Please call if you have any questions or problems. You can reach a [facility] hospitalist on duty at [facility] 24 hours a day by calling [phone]. Take care of yourself. Shama Harmon, DO [facility] Hospitalist Total Time Total Time Spent Total Time Spent (In Minutes): 60
--- NOTE | 2022-07-24 21:56 | Electrocardiogram Report ---
Test Reason : Blood Pressure : / mmHG Vent. Rate : 104 BPM Atrial Rate : 104 BPM P-R Int : 200 ms QRS Dur : 096 ms QT Int : 354 ms P-R-T Axes : 074 012 066 degrees QTc Int : 465 ms Sinus tachycardia Otherwise normal ECG When compared with ECG of 22-JUL-2022 05:25, No significant change was found Confirmed by Kvng Gibson ([id number]) on 07/24/2022 9:55:43 PM Referred By: REFERRED SELF Confirmed By:Kvng Gibson
--- NOTE | 2022-08-03 07:48 | Coding Query ---
To promote full compliance with coding requirements relating to patient care, provider participation is requested in all cases of it administrator uncertainty. Please assist us with the question(s) below: Coding Question(s): NSTEMI was documented throughout the chart and discharge summary; however, patients symptoms were attributed to her herpes zoster infection. Cardiac cath revealed non-obstructive CAD. Please indicate if NSTEMI was still a possible diagnosis at time of discharge or if it was ruled out. Physician's Response(s): Please ask for Dr. Ayala's interpretation who was the cardiac expert in this case. Thank you. sms NSTEMI ( ) Diagnosed and POA ( ) Diagnosed and not POA ( ) Ruled out ( ) Other (please specify) Thank you for your time, SANDEE Zhong, [facility]
--- NOTE | 2022-08-04 12:47 | Coding Query ---
CODING QUERY To promote full compliance with coding requirements relating to patient care, provider participation is requested in all cases of timber killer uncertainty. Please assist us with the question(s) below: Coding Question(s): NSTEMI was documented throughout the chart and discharge summary; however, patients symptoms were attributed to her herpes zoster infection. Cardiac cath revealed non-obstructive CAD. Please indicate if NSTEMI was still a possible diagnosis at time of discharge or if it was ruled out. Physician's Response(s): NSTEMI ( ) Diagnosed and POA ( ) Diagnosed and not POA ( x ) Ruled out ( ) Other (please specify) Thank you for your time, SANDEE Zhong, [facility]
== END 2022-07-24 17:15 | disposition home or self-care (01) | DRG 287 ==
LOC: 2S 10:12 → ED 10:12 → 2S 16:15
DX: F41.9 Anxiety disorder, unspecified; F32.9 Major depressive disorder, single episode, unspecified; I48.0 Paroxysmal atrial fibrillation; Z79.52 Long term (current) use of systemic steroids; R07.89 Other chest pain; R77.8 Other specified abnormalities of plasma proteins; Z20.822 Contact with and (suspected) exposure to COVID-19; R11.2 Nausea with vomiting, unspecified; I11.9 Hypertensive heart disease without heart failure; Z79.899 Other long term (current) drug therapy; B02.9 Zoster without complications; Z79.82 Long term (current) use of aspirin; Z88.5 Allergy status to narcotic agent; K21.9 Gastro-esophageal reflux disease without esophagitis; Z79.01 Long term (current) use of anticoagulants; E78.5 Hyperlipidemia, unspecified; Z88.8 Allergy status to other drugs, medicaments and biological substances; Z79.51 Long term (current) use of inhaled steroids; I25.10 Atherosclerotic heart disease of native coronary artery without angina pectoris